=== PATIENT | female | born 1940 | race Caucasian/White ===

== ENCOUNTER 2017-07-13 10:30 | Day surgery (SDC) | payer MEDICARE, BC ==
[2017-07-06 23:07] VITALS: BMI 24.0
[2017-07-13 09:29] LABS: Calcium 9.6 mg/dL (8.4-10.2); Potassium 5.2 mmol/L (3.5-5.1)
[~2017-07-13 10:30] MED LIST: ASPIRIN 325 MG TAB PO ONE; CLOPIDOGREL 75 MG TAB PO ONE; NITROGLYCERIN SL TABS 0.4 MG TAB SUBLINGUAL PRN; SODIUM CHLORIDE 0.9% 1,000 ML IV SCH; SODIUM CHLORIDE 0.9% 1,000 ML in EMPTY BAG 1 BAG IV ONE
[2017-07-13] MEDS ORDERED: LIDOCAINE 2% INJ 20 MG/ML SQ ONE (12:12)
[2017-07-13] MEDS ORDERED: HEPARIN SODIUM 1,000 UN/ML (10ML VL) IV ONE ×2 (12:26→12:46)
[2017-07-13] MEDS ORDERED: IODIXANOL 320 MG/ML 100 ML INTRAARTER ONE (13:03)
[2017-07-13] MEDS ORDERED: hydrALAZINE HCL 20 MG/ML 1 ML VIAL IV ONE (13:10)
[2017-07-13] MEDS ORDERED: SODIUM CHLORIDE 0.9% 1,000 ML IV SCH (13:30)
[2017-07-13] MEDS ORDERED: ENALAPRILAT 1.25 MG/ML 1 ML VIAL IVP STA (13:42)
[2017-07-13] MEDS ORDERED: hydrALAZINE HCL 20 MG/ML 1 ML VIAL IVP STA (13:42)
[2017-07-13] MEDS ORDERED: SODIUM CHLORIDE 0.9% 250 ML IV ONE (13:50)
[2017-07-13] MEDS ORDERED: HYDROmorphone 2 MG/ML 1 ML SYRINGE IVP STA (14:11)
--- NOTE | 2017-07-13 14:27 | AN ---
ANGIOGRAPHY REPORT DATE OF SERVICE: July 13, 2017 PERFORMING PHYSICIAN: Cruz Mena MD, sample examiner. PROCEDURE PERFORMED: 1. Aortic arch angiogram. 2. Selective right internal carotid artery angiogram. 3. Non selective left internal carotid artery angiogram. 4. Intracranial angiogram. INDICATION: This is a pleasant 77-year-old female patient who sees Dr. Cuenca as an outpatient who was diagnosed recently with severe disease involving the right internal carotid artery. She underwent a CTA of the carotid, which revealed severe disease involving the right internal carotid artery and in view of that, she was brought today to undergo right carotid stenting. APPROACH: Right common femoral artery. COMPLICATION: None. LEVEL OF SEDATION: No sedation was given during the case. PROCEDURE DESCRIPTION: After obtaining informed consent, the patient was brought to the cardiac laboratory equipment cleaner. The right common femoral artery was cannulated using micropuncture technique and a micropuncture wire passed easily then I placed a 6-Wolof 90 cm sheath in the right common femoral artery and the sheath was pushed all the way to the aortic arch. Subsequently I did an aortic arch angiogram using 5-Wolof pigtail catheter. Then I did select the right common carotid artery using JB2 catheter. After that, I did selective right internal carotid artery angiogram and non selective left internal carotid artery angiogram and also intracranial angiogram. The procedure was completed without any complication. SELECTIVE ARCH AND CAROTID ANGIOGRAM: 1. Aortic arch is a true bovine arch and seems to be angiographically normal. It bifurcates into the innominate and left subclavian. 2. The right carotid system: The right common carotid artery appeared to be angiographically normal. It bifurcates into the right external and right internal carotid artery. The right external carotid artery appeared to have mild disease only and the right internal carotid artery appeared to have a plaque in the range of 70% only. 3. Left carotid system: The left internal carotid artery appeared to have mild disease only. The left common carotid artery appeared to be angiographically normal. The left external carotid artery appeared to be angiographically normal. CONCLUSION: 1. True bovine arch. 2. 70% disease involving the ostial of the right internal carotid artery, which does have a tortuous proximal portion in the neck. POSTPROCEDURE MANAGEMENT: 1. At this point maximize medical treatment. 2. Surveillance duplex study every 3-6 months. 3. Follow up with the patient. MMODL / IJN: [id number] /
--- NOTE | 2017-07-13 15:01 | IR ---
Fluoroscopy HISTORY: Carotid stenosis 9.2 minutes fluoroscopy time supplied to the referring clinician. 149 intraoperative C-arm images do cument the procedure. See dictated report from cardiology.
[2017-07-13 19:27] VITALS: RESP 18
[2017-07-14 03:41] VITALS: TEMP 98
[2017-07-14 08:54] VITALS: BP 89/50; PULSE 74
--- NOTE | 2017-07-14 09:31 | DS ---
DISCHARGE SUMMARY ADMISSION DATE: 07/13/2017 DISCHARGE DATE: 07/14/2017 BRIEF HISTORY: This is a pleasant 77-year-old female patient who sees Dr. Cuenca as an outpatient who was admitted yesterday to undergo right carotid stenting. She underwent selective right carotid angiogram, which revealed intermediate to severe disease involving the right internal , but not quite higher than 80% stenosis. In view of that, we decided to not pursue with right carotid stenting and the procedure was aborted at that time. The patient is going to be discharged home and I will follow up with the patient as an outpatient in the office. MMODL / IJN: [id number] /
== END 2017-07-14 13:10 | disposition home or self-care (01) ==
LOC: EDSTATUS 10:30 → CATHCVL 10:30 → EDSTATUS 10:30 → 3OBS 13:09 → CATHCVL 07-14 13:10
PROVIDERS: ATTEND Internal Medicine Interventional Cardiology
DX: I65.21 Occlusion and stenosis of right carotid artery (principal); I77.9 Disorder of arteries and arterioles, unspecified; I65.29 Occlusion and stenosis of unspecified carotid artery; I25.10 Atherosclerotic heart disease of native coronary artery without angina pectoris; Z95.1 Presence of aortocoronary bypass graft; Z95.5 Presence of coronary angioplasty implant and graft; I10 Essential (primary) hypertension; E78.5 Hyperlipidemia, unspecified; I27.20 Pulmonary hypertension, unspecified; I48.91 Unspecified atrial fibrillation; M35.3 Polymyalgia rheumatica; Z79.01 Long term (current) use of anticoagulants; Z79.899 Other long term (current) drug therapy
CPT/HCPCS: 36223; 80048; C1769 ×5; C1894 ×2; C1760; J2001; J1170; J0360; Q9967; J1644

== ENCOUNTER 2018-02-20 16:04 | Inpatient (IN) | payer BC, MEDICARE ==
[2018-02-20] MEDS ORDERED: NITROGLYCERIN OINT 1 INCH/GM PACKET TOPICAL STA (16:33)
[2018-02-20] MEDS ORDERED: ASPIRIN 81 MG PO STA (16:33)
--- NOTE | 2018-02-20 16:51 | ED ---
General Adult HPI - General Chief complaint: Chest Pain Stated complaint: Chest pain Time Seen by Provider: 02/20/18 16:25 Source: patient, RN notes reviewed Mode of arrival: ambulatory Limitations: no limitations - History of Present Illness Initial comments: Patient is a pleasant 77-year-old female presenting to the emergency Department with chest discomfort. Symptoms have been occurring for several weeks. Patient has some pressure in her chest. There is some associated dyspnea. No nausea or diaphoresis. Patient did have a stress test done with questionable results. Patient went to paving inspector today and EKG did show some ST depression. Dr. Cuenca did call and spoke with. He does recommend admitting patient and starting a heparin and beta blockers and stantin. - Related Data Home Medications Medication Instructions Recorded Confirmed Apixaban [Eliquis] 5 mg PO BID 01/26/14 02/20/18 ALPRAZolam [Xanax] 0.25 mg PO HS PRN 03/25/14 02/20/18 Irbesartan [Avapro] 75 mg PO DAILY 06/21/14 02/20/18 Carvedilol [Coreg] 6.25 mg PO BID-W/MEALS PRN 06/19/15 02/20/18 Isosorbide Mononitrate [Isosorbide 30 mg PO DAILY 06/19/15 02/20/18 Mononitrate ER] Famotidine [Pepcid] 20 mg PO DAILY 07/05/17 02/20/18 Spironolactone [Aldactone] 12.5 mg PO DAILY 07/05/17 02/20/18 Vit C/E/Zn/Coppr/Lutein/Zeaxan 2 each PO DAILY 07/05/17 02/20/18 [Preservision Areds 2 Softgel] Aspirin [Adult Low Dose Aspirin EC] 81 mg PO DAILY 02/20/18 02/20/18 Atorvastatin Calcium [Lipitor] 80 mg PO HS 02/20/18 02/20/18 Previous Rx's Medication Instructions Recorded Amiodarone [Cordarone] 100 mg PO DAILY #30 tab 06/21/15 Allergies Allergy/AdvReac Type Severity Reaction Status Date / Time No Known Allergies Allergy Verified 02/20/18 16:56 Review of Systems ROS Statement: Those systems with pertinent positive or pertinent negative responses have been documented in the HPI. ROS Other: All systems not noted in ROS Statement are negative. Constitutional: Denies: fever Eyes: Denies: eye pain ENT: Denies: ear pain Respiratory: Denies: cough Cardiovascular: Reports: chest pain Endocrine: Denies: heat or cold intolerance Gastrointestinal: Denies: abdominal pain Genitourinary: Denies: dysuria Musculoskeletal: Denies: back pain Skin: Denies: rash Neurological: Denies: weakness Past Medical History Past Medical History: Atrial Fibrillation, Cancer, CVA/TIA, Deep Vein Thrombosis (DVT), Eye Disorder, GERD/Reflux, Hypertension, Renal Disease Additional Past Medical History / Comment(s): carotid stenosis,DVT in Right leg after CABG , see Dr Cuenca H&P, "Stroke in left eye- blurry vision", RENAL INSUFFIENCY , SKIN CANCER-BASAL CELL.BURSITIS, POLYMYAGIA, SCIATICA,HIATAL HERNIA History of Any Multi-Drug Resistant Organisms: None Reported Past Surgical History: Cholecystectomy, Coronary Bypass/CABG, Heart Catheterization With Stent, Hysterectomy Additional Past Surgical History / Comment(s): cataracts, TRIPLE VESSEL CABG,2 CARDIAC STENTS. Past Anesthesia/Blood Transfusion Reactions: No Reported Reaction Additional Past Anesthesia/Blood Transfusion Reaction / Comment(s): CLAUSTROPHOBIA Date of Last Stent Placement:: 2011 Past Psychological History: No Psychological Hx Reported Smoking Status: Never smoker Past Alcohol Use History: None Reported Past Drug Use History: None Reported - Past Family History Mother Family Medical History: Myocardial Infarction ([place]) Additional Family Medical History / Comment(s): heart PROBLEMS Father Additional Family Medical History / Comment(s): HEART PROBLEMS General Exam Limitations: no limitations General appearance: alert, in no apparent distress Head exam: Present: atraumatic Eye exam: Present: normal appearance Neck exam: Present: normal inspection Respiratory exam: Present: normal lung sounds bilaterally. Absent: chest wall tenderness Cardiovascular Exam: Present: regular rate, normal rhythm, systolic murmur Expanded Peripheral pulses: 2+: Radial (R), Radial (L), Posterior Tibialis (R), Posterior Tibialis (L) GI/Abdominal exam: Present: soft. Absent: distended, tenderness Extremities exam: Present: normal inspection. Absent: pedal edema, calf tenderness Neurological exam: Present: alert Psychiatric exam: Present: normal affect, normal mood Skin exam: Present: normal color Course Vital Signs 02/20/18 02/20/18 16:07 16:53 Temperature 98.6 F Pulse Rate 70 Respiratory 16 18 Rate Blood Pressure 161/60 O2 Sat by Pulse 99 Oximetry EKG Findings - EKG Comments: EKG Findings:: Sinus rhythm at 65. For screening AV block UT of 218. QRS 102. QT 486. QTc 505. Normal axis. LVH criteria. No acute ST change. Medical Decision Making - Medical Decision Making Patient reevaluated and resting comfortably in bed. Patient and family updated on results and plan. Case was again discussed with Dr. Cuenca who did evaluate this patient and would like her to be admitted. Case was also discussed with Dr. Yusuf, who will admit for hospital call. - Lab Data Result diagrams: 02/20/18 16:42 02/20/18 16:42 Lab Results 02/20/18 02/20/18 02/20/18 Range/Units 16:42 16:42 16:42 WBC 5.9 (3.8-10.6) k/uL RBC 4.29 (3.80-5.40) m/uL Hgb 12.4 (11.4-16.0) gm/dL Hct 39.7 (34.0-46.0) % MCV 92.6 (80.0-100.0) fL MCH 28.9 (25.0-35.0) pg MCHC 31.2 (31.0-37.0) g/dL RDW 13.6 (11.5-15.5) % Plt Count 222 (150-450) k/uL Neutrophils % 74 % Lymphocytes % 17 % Monocytes % 6 % Eosinophils % 2 % Basophils % 0 % Neutrophils # 4.4 (1.3-7.7) k/uL Lymphocytes # 1.0 (1.0-4.8) k/uL Monocytes # 0.3 (0-1.0) k/uL Eosinophils # 0.1 (0-0.7) k/uL Basophils # 0.0 (0-0.2) k/uL PT (9.0-12.0) sec INR (<1.2) APTT (22.0-30.0) sec Sodium 141 (137-145) mmol/L Potassium 4.6 (3.5-5.1) mmol/L Chloride 109 H (98-107) mmol/L Carbon Dioxide 22 (22-30) mmol/L Anion Gap 10 mmol/L BUN 24 H (7-17) mg/dL Creatinine 0.90 (0.52-1.04) mg/dL Est GFR (CKD-EPI)AfAm 71 (>60 ml/min/1.73 sqM) Est GFR (CKD-EPI)NonAf 61 (>60 ml/min/1.73 sqM) Glucose 104 H (74-99) mg/dL Calcium 9.2 (8.4-10.2) mg/dL Magnesium 2.1 (1.6-2.3) mg/dL Total Bilirubin 0.7 (0.2-1.3) mg/dL AST 33 (14-36) U/L ALT 50 (9-52) U/L Alkaline Phosphatase 204 H (38-126) U/L Total Creatine Kinase 65 (30-135) U/L CK-MB (CK-2) 0.9 (0.0-2.4) ng/mL CK-MB (CK-2) Rel Index 1.4 Troponin I <0.012 (0.000-0.034) ng/mL Total Protein 7.4 (6.3-8.2) g/dL Albumin 4.2 (3.5-5.0) g/dL 02/20/18 Range/Units 16:42 WBC (3.8-10.6) k/uL RBC (3.80-5.40) m/uL Hgb (11.4-16.0) gm/dL Hct (34.0-46.0) % MCV (80.0-100.0) fL MCH (25.0-35.0) pg MCHC (31.0-37.0) g/dL RDW (11.5-15.5) % Plt Count (150-450) k/uL Neutrophils % % Lymphocytes % % Monocytes % % Eosinophils % % Basophils % % Neutrophils # (1.3-7.7) k/uL Lymphocytes # (1.0-4.8) k/uL Monocytes # (0-1.0) k/uL Eosinophils # (0-0.7) k/uL Basophils # (0-0.2) k/uL PT 11.1 (9.0-12.0) sec INR 1.2 H (<1.2) APTT 27.6 (22.0-30.0) sec Sodium (137-145) mmol/L Potassium (3.5-5.1) mmol/L Chloride (98-107) mmol/L Carbon Dioxide (22-30) mmol/L Anion Gap mmol/L BUN (7-17) mg/dL Creatinine (0.52-1.04) mg/dL Est GFR (CKD-EPI)AfAm (>60 ml/min/1.73 sqM) Est GFR (CKD-EPI)NonAf (>60 ml/min/1.73 sqM) Glucose (74-99) mg/dL Calcium (8.4-10.2) mg/dL Magnesium (1.6-2.3) mg/dL Total Bilirubin (0.2-1.3) mg/dL AST (14-36) U/L ALT (9-52) U/L Alkaline Phosphatase (38-126) U/L Total Creatine Kinase (30-135) U/L CK-MB (CK-2) (0.0-2.4) ng/mL CK-MB (CK-2) Rel Index Troponin I (0.000-0.034) ng/mL Total Protein (6.3-8.2) g/dL Albumin (3.5-5.0) g/dL - Radiology Data Radiology results: image reviewed (Chest x-ray shows chronic changes without acute abnormality) Disposition Clinical Impression: Acute coronary syndrome Disposition: ADMITTED IP TO [facility] Is patient prescribed a controlled substance at d/c from ED?: No Referrals: Raleigh Cuenca MD [Primary Care Provider] - 1-2 days Decision Time: 18:41
[2018-02-20 16:55] LABS: Basophils % (A) 0 %; Eosinophils # (A) 0.1 k/uL (0-0.7); Eosinophils % (A) 2 %; HCT 39.7 % (34.0-46.0); HGB 12.4 gm/dL (11.4-16.0); Lymphocytes % (A) 17 %; MCH 28.9 pg (25.0-35.0); MCHC 31.2 g/dL (31.0-37.0); MCV 92.6 fL (80.0-100.0); Mean Platelet Volume 6.9; Monocytes # (A) 0.3 k/uL (0-1.0); Monocytes % (A) 6 %; Neutrophils # (A) 4.4 k/uL (1.3-7.7); Neutrophils % (A) 74 %; Platelet Count 222 k/uL (150-450); RBC 4.29 m/uL (3.80-5.40); RDW 13.6 % (11.5-15.5); WBC 5.9 k/uL (3.8-10.6)
[2018-02-20] MEDS ORDERED: ALPRAZolam 0.25 MG TAB PO STA (16:56)
[2018-02-20 17:02] LABS: Albumin 4.2 g/dL (3.5-5.0); Calcium 9.2 mg/dL (8.4-10.2); Magnesium 2.1 mg/dL (1.6-2.3); Potassium 4.6 mmol/L (3.5-5.1); Total Bilirubin 0.7 mg/dL (0.2-1.3); Total Protein 7.4 g/dL (6.3-8.2)
[2018-02-20 17:05] LABS: INR 1.2 (<1.2); Partial Thromboplastin Time 27.6 sec (22.0-30.0); Prothrombin Time 11.1 sec (9.0-12.0)
[2018-02-20] MEDS ORDERED: ALPRAZolam 0.25 MG TAB PO PRN (17:11)
[2018-02-20] MEDS ORDERED: CARVEDILOL 6.25 MG TAB PO PRN (17:11)
[2018-02-20 17:13] LABS: Creatine Kinase 65 U/L (30-135)
[2018-02-20 17:26] LABS: Creatine Kinase MB 0.9 ng/mL (0.0-2.4); Troponin I <0.012 ng/mL (0.000-0.034)
--- NOTE | 2018-02-20 17:35 | XR ---
EXAMINATION TYPE: XR chest 2V DATE OF EXAM: 02/20/2018 COMPARISON: 06/19/2015 HISTORY: Chest pain TECHNIQUE: Frontal and lateral views of the chest are obtained. FINDINGS: There is some thoracic scoliotic deformity. There is thoracolumbar levoscoliosis. There is coarsening of interstitial markings. There is no gross heart failure. Thoracic aorta is atheromatous . There are sternal wires. There are chest leads. There is no definite pleural effusion. IMPRESSION: No heart failure seen. Fibrotic changes. No significant change compared to old exam.
[2018-02-20] MEDS ORDERED: NITROGLYCERIN SL TABS 0.4 MG TAB SUBLINGUAL PRN (18:41)
[2018-02-20] MEDS ORDERED: HEPARIN SODIUM,PORCINE 5,000 UNIT/ML 1 ML VIAL IV PRN (18:41)
[2018-02-20] MEDS ORDERED: HEPARIN SODIUM,PORCINE 5,000 UNIT/ML 1 ML VIAL IV ONE (18:41)
[2018-02-20] MEDS ORDERED: HEPARIN SOD,PORK IN 0.45% NACL 25,000 UNIT in 0.45% NACL 1 500ML.BAG IV SCH (18:45)
[2018-02-20] MEDS: ATORVASTATIN 80 MG TAB PO SCH (21:27)
[2018-02-20 23:01] LABS: Creatine Kinase 51 U/L (30-135)
[2018-02-20 23:16] LABS: Creatine Kinase MB 0.9 ng/mL (0.0-2.4); Troponin I <0.012 ng/mL (0.000-0.034)
[2018-02-20] MEDS ORDERED: TEMAZEPAM 15 MG CAP PO PRN (23:31)
[2018-02-20] MEDS ORDERED: ACETAMINOPHEN TAB 500 MG TAB PO PRN (23:31)
[2018-02-20] MEDS ORDERED: HYDROcodone/APAP 5-325MG 1 EACH TAB PO PRN (23:31)
[2018-02-21] MEDS: NITROGLYCERIN OINT 1 INCH/GM PACKET TOPICAL SCH ×2 (00:11→05:56)
[2018-02-21 03:55] LABS: Basophils % (A) 0 %; Eosinophils # (A) 0.1 k/uL (0-0.7); Eosinophils % (A) 1 %; HCT 35.5 % (34.0-46.0); HGB 11.1 gm/dL (11.4-16.0); Lymphocytes # (A) 1.3 k/uL (1.0-4.8); Lymphocytes % (A) 25 %; MCHC 31.1 g/dL (31.0-37.0); MCV 93.2 fL (80.0-100.0); Mean Platelet Volume 6.9; Monocytes # (A) 0.4 k/uL (0-1.0); Monocytes % (A) 7 %; Neutrophils # (A) 3.4 k/uL (1.3-7.7); Neutrophils % (A) 65 %; Platelet Count 180 k/uL (150-450); RBC 3.81 m/uL (3.80-5.40); RDW 13.4 % (11.5-15.5); WBC 5.2 k/uL (3.8-10.6)
[2018-02-21 04:20] LABS: Creatine Kinase 47 U/L (30-135)
[2018-02-21 04:33] LABS: Troponin I <0.012 ng/mL (0.000-0.034)
[2018-02-21 04:39] LABS: Calcium 8.7 mg/dL (8.4-10.2); Potassium 3.8 mmol/L (3.5-5.1)
--- NOTE | 2018-02-21 07:57 | HP ---
HISTORY AND PHYSICAL CHIEF COMPLAINT: Chest pain. HISTORY OF PRESENT ILLNESS: This 77-year-old woman with a past medical history of multiple medical problems including atrial fibrillation, history of CVA, DVT, GERD, hypertension, history of hyperlipidemia, carotid stenosis being followed by Dr. Farias in the outpatient setting was evaluated by Dr. Cuenca today. The patient apparently had some pressure in the chest and some associated shortness of breath. No nausea or diaphoresis. The patient also recently had a stress test about a few weeks ago with questionable Today, the EKG shows some ST-T changes. The patient was admitted to [facility] at this time. There is no history of any fever, rigors. No history of headache, loss of consciousness, seizures. PAST MEDICAL HISTORY: History of CAD, CABG, stent, history of atrial fibrillation, CVA, TIA, DVT, GERD , hypertension, hyperlipidemia, history of carotid stenosis. MEDICATIONS: Medications prior to admission are home medications: 1. Vitamin C, zinc, copper 2 daily. 2. Aldactone 12.5 mg daily. 3. Imdur 30 mg p.o. daily. 4. Avapro 75 mg p.o. daily. 5. Pepcid 20 mg p.o. daily. 6. Coreg 6.25 mg p.o. b.i.d. with meals. 7. Lipitor 80 mg at bedtime. 8. Aspirin 81 mg daily. 9. Eliquis 5 mg p.o. b.i.d. 10.Cordarone 100 mg p.o. daily. 11.Xanax 0.25 at bedtime p.r.n. ALLERGIES: Allergies are none. FAMILY HISTORY: History of myocardial infarction in the family. SOCIAL HISTORY: No history of smoking. No history of alcohol intake. REVIEW OF SYSTEMS: ENT: No diminished hearing or diminished. CARDIOVASCULAR SYSTEM: No angina, RESPIRATORY SYSTEM: No cough GI: No nausea. : No dysuria. NERVOUS SYSTEM: No numbness or weakness. ALLERGY/IMMUNOLOGY: No asthma. MUSCULOSKELETAL: As mentioned earlier. HEMATOLOGY/ONCOLOGY: As mentioned earlier. ENDOCRINE: No history of diabetes or hypothyroidism. CONSTITUTIONAL: As mentioned earlier. DERMATOLOGY: Negative. RHEUMATOLOGY: Negative. PSYCHIATRY: As mentioned earlier. PHYSICAL EXAMINATION: Patient is alert and oriented x3. The pulse is 66, blood pressure 167/81, respiration 18, temperature 98.3, pulse ox 99% on 2 L HEENT: Conjunctivae normal. Oral mucosa moist. Neck is no jugular venous distention. No carotid bruit. No lymph node enlargement. CARDIOVASCULAR: S1 and S2 muffled. RESPIRATORY: Breath sounds are diminished at the bases. Bilateral scattered rhonchi and crackles. ABDOMEN: Soft, nontender. No mass palpable. LEGS: No edema, no swelling. NERVOUS SYSTEM: Higher functions as mentioned. Moves all 4 limbs. No focal motor deficits. LYMPHATICS: No lymphadenopathy of the neck, axillae or groin. SKIN: No ulcer, rash or bleeding. LABS: CBC within normal. EKG noted. Glucose 104. Troponins are negative. ASSESSMENT: 1. Chest pain possible unstable angina. 2. Recent abnormal stress test. 3. History of coronary artery disease, coronary artery bypass grafting, stent. 4. Atrial fibrillation. 5. Cerebrovascular accident, transient ischemic attack. 6. History of deep vein thrombosis. 7. History of gastroesophageal reflux disease. 8. Hypertension. 9. History of carotid stenosis. 10.History of renal insufficiency. 11.History of claustrophobia. RECOMMENDATIONS AND DISCUSSION: In this 77-year-old woman who presented with multiple medical issues at this time I would recommend to continue current medications, continue symptomatic treatment. Otherwise, unstable angina protocol and cardiology consultation possible cardiac cath. Guarded prognosis because of multiple complex medical issues. Further recommendations to follow. Prognosis guarded. MMODL / IJN: [id number] / MTDD
[2018-02-21] MEDS ORDERED: ASPIRIN 325 MG TAB PO SCH (09:00)
[2018-02-21] MEDS ORDERED: FAMOTIDINE 20 MG TAB PO SCH (09:00)
[2018-02-21] MEDS ORDERED: IV FLUID CONTINUATION 1,000 ML IV ONE (09:24)
[2018-02-21] MEDS ORDERED: MIDAZOLAM 2 MG/2 ML VIAL ONE (09:35)
[2018-02-21] MEDS ORDERED: LIDOCAINE 1% INJ 10MG/ML (20 ML MDV) ONE (09:35)
[2018-02-21] MEDS ORDERED: SODIUM CHLORIDE 0.9% 1,000 ML in EMPTY BAG 1 BAG IV ONE (09:41)
[2018-02-21] MEDS ORDERED: ASPIRIN 325 MG TAB PO STA (09:41)
[2018-02-21] MEDS ORDERED: NITROGLYCERIN SL TABS 0.4 MG TAB SUBLINGUAL PRN ×2 (09:41→11:37)
[2018-02-21] MEDS ORDERED: ATORVASTATIN 80 MG TAB PO STA (09:41)
[2018-02-21] MEDS ORDERED: ALPRAZolam 0.5 MG TAB PO PRN (09:41)
[2018-02-21] MEDS ORDERED: fentaNYL (PF) 50 MCG/ML 2 ML AMP IV ONE (10:00)
[2018-02-21] MEDS ORDERED: ASPIRIN 325 MG TAB PO ONE (10:00)
[2018-02-21] MEDS ORDERED: MIDAZOLAM 2 MG/2 ML VIAL IV ONE (10:00)
[2018-02-21] MEDS ORDERED: fentaNYL (PF) 50 MCG/ML 2 ML AMP ONE (10:01)
[2018-02-21] MEDS ORDERED: LIDOCAINE 1% INJ 10MG/ML (20 ML MDV) SQ ONE ×2 (10:01→10:03)
[2018-02-21] MEDS ORDERED: ASPIRIN 325 MG TAB ONE ×2 (10:05→10:07)
[2018-02-21] MEDS ORDERED: hydrALAZINE HCL 20 MG/ML 1 ML VIAL ONE (10:07)
[2018-02-21] MEDS ORDERED: hydrALAZINE HCL 20 MG/ML 1 ML VIAL IV ONE (10:09)
[2018-02-21] MEDS ORDERED: NITROGLYCERIN OINT 1 INCH/GM PACKET TOPICAL ONE ×2 (10:11→10:12)
[2018-02-21] MEDS ORDERED: CLOPIDOGREL 75 MG TAB ONE (10:42)
[2018-02-21] MEDS ORDERED: CLOPIDOGREL 75 MG TAB PO ONE (10:46)
[2018-02-21] MEDS ORDERED: IOPAMIDOL-370 125ML BTL INJ ONE (10:50)
[2018-02-21] MEDS ORDERED: BIVALIRUDIN BOLUS 250 MG/50 ML IV ONE (10:51)
[2018-02-21] MEDS ORDERED: BIVALIRUDIN 250 MG in SODIUM CHLORIDE 0.9% 50 ML IV ONE (10:52)
[2018-02-21] MEDS ORDERED: NITROGLYCERIN 1000MCG/10ML SYRINGE INTRACORON ONE (11:01)
--- NOTE | 2018-02-21 11:03 | P.CARDCATH ---
Date of Procedure: 02/21/18 Preoperative Diagnosis: Unstable angina Postoperative Diagnosis: Significant disease involving the mid RCA, patent grafts 4 Procedure(s) Performed: Left heart catheterization with selective coronary arteriography, including selective injection of the GODNIEZ alayna, 2 vein grafts and one radial graft and no LV gram Description of Procedure: HISTORY: This is a 77-year-old female with history of previous bypass surgery and also stent placement who had a recent stress test which showed possible ischemia in the lateral wall. Patient presented to the office complaints of chest pain and EKG evidence of ST depression in inferolateral leads. Patient is admitted by Dr. Cuenca for unstable angina. Her cardiac enzymes are negative. Given her history, patient is advised to have a cardiac catheterization. CONSENT :I have discussed the risks, benefits and alternative therapies for the above-mentioned procedure and for both sedation/analgesia as well as necessary blood product administration, if indicated, as they pertain to this patient. The patient has indicated understanding and acceptance of the risks and procedures discussed. PROCEDURE: Patient was brought to the lab in a fasting state. Patient was given some IV sedation. The right groin is infiltrated with lidocaine and right femoral artery was entered using Seldinger technique. A 6-Estonian catheter was left in place and selective coronary arteriography and selective injection of 2 vein grafts, radial graft and also GODINEZ graft was performed.. No LV gram done . Patient tolerated the procedure well. Femoral angiogram was performed . No immediate complications were noted and patient went on to have stent placement of the RCA by Dr. Stoll Conscious Sedation: Versed 1mg Fentanyl 12.5 g Duration 32minutes HEMODYNAMThe aortic pressure is about 170/80. Left ankle end-diastolic pressure is about 8-10. SECTIVE CORONARY ARTERIOGRAPHY: THE LEFT MAIN: Short and patent THE LEFT ANTERIOR DESCENDING CORONARY ARTERY: This is totally occluded in the midportion Area. The distal LAD seen by GODINEZ graft . The left circumflex coronary artery: This is totally occluded in the proximal portion. The right coronary artery: This is heavily calcified vessel. There is about 70% stenosis of the origin of the marginal branch. There is total occlusion of the PDA. . The GODINEZ graft to the LAD: This is patent throat its length and also to distal anastomosis. The LAD beyond the insertion site is free of occlusive disease. The vein graft to the intermediate: This is patent at the proximal and distal anastomosis. The distal branch are free of occlusive disease. The vein graft to the OM branch of the circumflex: This is patent both at the proximal and distal anastomosis and throughout its length. The OM branch beyond the insertion is free of occlusive disease . He had The free radial graft to the PDA. This is small and patent throat its length and at both proximal and distal anastomosis. The PDA is small in caliber and free of occlusive disease. Left ventriculography: Not performed Final impression: #1. Critical lesion in the mid RCA #2. Patent 4 bypass grafts #3. Total occlusion of the LAD and circumflex in the proximal portion Plan: Proceed with stent placement of the RCA. This is being done by Dr. Stoll Prognosis: Fair
[2018-02-21] MEDS ORDERED: IOPAMIDOL-370 100ML BTL INJ ONE (11:21)
[2018-02-21] MEDS ORDERED: RX INFO: IV CONTRAST WAS GIVEN 1 EACH MISC MISCELLANE PRN (11:37)
[2018-02-21] MEDS ORDERED: ATROPINE SULFATE 0.1 MG/ML 10ML SYRINGE IV PRN (11:37)
[2018-02-21] MEDS ORDERED: MAG HYDROX/AL HYDROX/SIMETH 30 ML CUP PO PRN (11:37)
[2018-02-21] MEDS ORDERED: SODIUM CHLORIDE 0.9% 1,000 ML IV SCH (11:45)
--- NOTE | 2018-02-21 11:59 | PTCA ---
PERCUTANEOUSTRANS CORORONARY ANGIOGRAPHY DATE OF SERVICE: 02/21/2018. HISTORY: Ms. Sen is a 77-year-old female, known history of coronary artery disease, status post bypass grafting, history of percutaneous revascularization, who has been followed by Dr. Cuenca. Underwent cardiac catheterization by Dr. Guillen because of symptoms of angina pectoris, abnormal myocardial perfusion imaging, and EKG changes. Was found to have significant stenosis involving the mid right coronary artery at the site of the prior stenting. The right PDA was chronically occluded and fed by the graft, but the PLV was patent. In view of that, recommendation was made regarding angioplasty and stenting. The procedure, as well as the risks and complications, were discussed with the patient who is in full understanding and agreement. PROCEDURE: Attempt at guidewire in the right coronary artery using a 6-Beninese KRH 4 were unsuccessful. That catheter was exchanged to an and NR4 guiding catheter. After cannulating the right coronary ostium, a 0.014 advanced medium weight J-wire rate was advanced across the lesion, positioned distally. Then a 2.5 x 12 mm NC Trek balloon was advanced and one inflation at 12 atmospheres was done. Following that, the balloon was removed and attempt to advance a 2.75 x 18 mm Xience Alpine stent was unsuccessful. That stent was removed and another 0.014 balanced medium weight J-wire was advanced across the lesion, positioned distally in a caden fashion. Subsequently the stent was advanced, deployed, and post dilated at 16 atmospheres. Following that the balloon was removed and the 2nd wire was reintroduced. Subsequently, a 3.0 x 50 mm NC Trek balloon was advanced and one inflation at 14 atmospheres was done. After the last inflation, after appropriate wait, the balloon and the guidewire were withdrawn back in the guiding catheter. Images were obtained and repeated. Those images revealed stable successful stenting. At that point, the guiding catheter, the balloon, and the guidewire were removed. The sheath was removed. Hemostasis was obtained with deployment of an Angio-Seal. There was no immediate complication. The patient was returned to room in stable condition. The patient had chest discomfort and EKG changes with the inflation that resolved at the end of the procedure. She received Angiomax per protocol as well as oral loading dose of clopidogrel. RESULTS: Successful stenting of the mid right coronary artery with reduction of stenosis from 70% to less than 5%. RECOMMENDATIONS: Patient be continued on aspirin, Plavix and statin. Subsequently, the aspirin will be stopped and she will be continued on the Eliquis. Those findings and recommendation were discussed with the patient and her family who were in full understanding and agreement. DURATION OF PROCEDURE: 35 minutes. MMSLOANEL / FEMIN: [id number] /
[2018-02-21] MEDS: SPIRONOLACTONE 25 MG TAB PO SCH (12:12)
[2018-02-21] MEDS: ISOSORBIDE MONONITRATE ER 30 MG TAB.ER.24H PO SCH (12:13)
[2018-02-21] MEDS: AMIODARONE 100 MG TAB PO SCH (12:13)
[2018-02-21] MEDS: LOSARTAN 25 MG TAB PO SCH (12:13)
[2018-02-21] MEDS: PANTOPRAZOLE 40 MG TABLET PO SCH (12:15)
[2018-02-21] MEDS: ALPRAZolam 0.25 MG TAB PO PRN ×2 (12:17→19:33)
[2018-02-21 13:38] VITALS: BMI 24.2
--- NOTE | 2018-02-21 17:11 | PN ---
PROGRESS NOTE DATE OF SERVICE: 02/21/2018 This 77-year-old woman who was admitted with chest pain, abnormal stress test, had a cardiac catheterization and RCA stenting. No chest pain. No palpitations. No fever. PHYSICAL EXAMINATION: Alert and oriented x3. Pulse is 64, blood pressure 133/60, respirations 16, temperature 97.3, pulse ox 93% on room air. HEENT: Conjunctivae normal. Oral mucosa moist. NECK: No jugular venous distention. No carotid bruit. No lymph node enlargement. CARDIOVASCULAR SYSTEM: S1, S2 muffled. RESPIRATORY SYSTEM: Breath sounds diminished at the bases. No rhonchi. No crackles. ABDOMEN: Soft, non-tender. LEGS: No edema. No swelling. NERVOUS SYSTEM: No focal deficit. LABS: WBC 5.2, hemoglobin 11.1, sodium 141, potassium 3.8. ASSESSMENT: 1. Chest pain, possible unstable angina, status post cardiac catheterization and right coronary artery stenting. 2. History of recent abnormal stress test. 3. History of coronary artery disease, coronary artery bypass grafting, stent. 4. Atrial fibrillation. 5. History of cerebrovascular accident, transient ischemic attack. 6. History of deep vein thrombosis. 7. Gastroesophageal reflux disease. 8. Hypertension. 9. History of carotid stenosis. 10.History of renal insufficiency. 11.History of claustrophobia. RECOMMENDATIONS AND DISCUSSION: I recommend to continue current medication, continue monitoring. Continue the antiplatelet agents. Continue the rest of the medications. Follow closely with Cardiology. Prognosis guarded. Further recommendations to follow. MMODL / IJN: [id number] /
[2018-02-21] MEDS: ATORVASTATIN 80 MG TAB PO SCH (19:34)
[2018-02-21] MEDS ORDERED: ZOLPIDEM 5 MG TAB PO PRN (21:00)
[2018-02-22 04:01] VITALS: RESP 16
[2018-02-22 06:17] LABS: Basophils % (A) 0 %; Eosinophils % (A) 0 %; HCT 33.4 % (34.0-46.0); HGB 10.6 gm/dL (11.4-16.0); Lymphocytes % (A) 14 %; MCH 29.2 pg (25.0-35.0); MCHC 31.8 g/dL (31.0-37.0); MCV 91.7 fL (80.0-100.0); Mean Platelet Volume 6.8; Monocytes # (A) 0.4 k/uL (0-1.0); Monocytes % (A) 6 %; Neutrophils # (A) 5.3 k/uL (1.3-7.7); Neutrophils % (A) 78 %; Platelet Count 187 k/uL (150-450); RBC 3.65 m/uL (3.80-5.40); RDW 13.5 % (11.5-15.5); WBC 6.8 k/uL (3.8-10.6)
[2018-02-22 06:37] LABS: Calcium 8.4 mg/dL (8.4-10.2); Potassium 3.8 mmol/L (3.5-5.1)
[2018-02-22] MEDS: PANTOPRAZOLE 40 MG TABLET PO SCH (06:37)
[2018-02-22] MEDS: ISOSORBIDE MONONITRATE ER 30 MG TAB.ER.24H PO SCH (08:02)
[2018-02-22] MEDS: AMIODARONE 100 MG TAB PO SCH (08:02)
[2018-02-22] MEDS: LOSARTAN 25 MG TAB PO SCH (08:02)
[2018-02-22] MEDS: SPIRONOLACTONE 25 MG TAB PO SCH (08:03)
[2018-02-22 08:12] VITALS: TEMP 98.6
[2018-02-22] MEDS ORDERED: CLOPIDOGREL 75 MG TAB PO SCH (09:00)
[2018-02-22] MEDS ORDERED: ASPIRIN 81 MG PO SCH (09:00)
[2018-02-22 12:40] VITALS: BP 130/61; PULSE 69
--- NOTE | 2018-02-22 15:51 | P.PN ---
Subjective Progress Note Date: 02/22/18 This is a pleasant 77-year-old female who follows regularly with Dr. Dozier in the office. She was admitted to the hospital by Dr. Cuenca to undergo cardiac catheterization, patient had been experiencing heaviness in her chest. She also had a Lexiscan Cardiolite stress test performed which revealed possible anterior lateral ischemia with some possible motion artifact. She has a known history of hypertension, hyperlipidemia, paroxysmal atrial fibrillation. She was taken to the cardiac catheterization lab where the patient underwent stenting of the RCA. She was seen and examined this morning, denies any chest pain or difficulty in breathing. Her EKG showed normal sinus rhythm with no changes from post-PCI. She denied any chest discomfort, and her breathing overall was stable. Hemodynamically stable. Objective - Vital Signs Vital signs: Vital Signs Temp 98.6 F 02/22/18 08:00 Pulse 69 02/22/18 12:00 Resp 16 02/22/18 12:00 BP 130/61 02/22/18 12:00 Pulse Ox 90 L 02/22/18 12:00 Intake & Output 02/21/18 02/22/18 02/22/18 18:59 06:59 18:59 Intake Total 321 240 Balance 321 240 Weight 66 kg 67.2 kg Intake: IV 171 Oral 150 240 Other: Voiding Method Toilet Toilet Toilet # Voids 1 1 2 # Bowel Movements 1 - Exam PHYSICAL EXAMINATION: GENERAL: A 89-year-old female in no acute distress at the time of my examination HEENT: Head is atraumatic, normocephalic. Pupils equal, round. Sclera anicteric. Conjunctiva are clear. Mucous membranes of the mouth are moist. Neck is supple. There is no elevated jugular venous pressure.] bruit is heard. HEART EXAMINATION: [Heart S1, S2 normal. No murmur or gallop heard.] CHEST EXAMINATION:[ Lungs are clear to auscultation and precussion. No chest wall tenderness is noted on palpation or with deep breathing.] ABDOMEN: [ Soft, nontender. Bowel sounds are heard. No organomegaly noted]. Right groin soft, no evidence of any hematoma. EXTREMITIES:[ 2+ peripheral pulses with no evidence of peripheral edema and no calf tenderness noted]. NEUROLOGIC [patient is awake, alert and oriented ?-3.] . - Labs CBC & Chem 7: 08/22/18 05:42 02/22/18 05:42 Labs: Abnormal Lab Results - Last 24 Hours (Table) 02/22/18 02/22/18 Range/Units 05:42 05:42 RBC 3.65 L (3.80-5.40) m/uL Hgb 10.6 L (11.4-16.0) gm/dL Hct 33.4 L (34.0-46.0) % Chloride 112 H (98-107) mmol/L Carbon Dioxide 20 L (22-30) mmol/L Glucose 102 H (74-99) mg/dL Assessment and Plan Plan: Assessment and plan #1 status post angioplasty and stenting of the right coronary artery #2 paroxysmal atrial fibrillation, on Eliquis for anticoagulation #3 hypertension #4 hyperlipidemia Plan Patient will be discharged home today, follow-up appointment will be made in the office with . Patient will be discharged home on aspirin 81 mg daily, Plavix 75 mg daily, amiodarone 100 mg daily, Lipitor 80 mg daily, Coreg 6.25 mg twice a day, Imdur 30 mg daily, Cozaar 25 mg daily, Aldactone 25 mg daily, Eliquis to be resumed at 5 mg twice a day as an outpatient. Patient is remaining in normal sinus rhythm. DNP note has been reviewed, I agree with a documented findings and plan of care. Patient was seen and examined.
--- NOTE | 2018-02-22 18:15 | DS ---
DISCHARGE SUMMARY DATE OF SERVICE: 02/22/2018 FINAL DIAGNOSES: 1. Chest pain; possible unstable angina, status post cardiac catheterization with right coronary artery stenting. 2. History of recent abnormal stress test. 3. History of coronary artery disease, coronary artery bypass grafting and stent. 4. Atrial fibrillation. 5. History of cerebrovascular accident, transient ischemic attack. 6. History of deep venous thrombosis. 7. Gastroesophageal reflux disease. 8. Hypertension. 9. History of carotid stenosis. 10.History of renal insufficiency. 11.History of claustrophobia. DISCHARGE DISPOSITION: The patient will be discharged in stable condition with guarded prognosis after clearance from Cardiology. HISTORY OF PRESENT ILLNESS: This 77-year-old woman with a past medical history of multiple medical problems was admitted with chest pain, unstable angina. Cardiology performed a cardiac catheterization and RCA stenting. Patient improved significantly. On exam, vitals are stable. CARDIOVASCULAR SYSTEM: S1, S2 muffled. ABDOMEN: Soft. NERVOUS SYSTEM: No focal deficit. DISCHARGE ADVICE AND MEDICATIONS: 1. Diet is cardiac. 2. Activity limited until followup. 3. Follow up with primary physician, Dr. Farias, in 2-3 days. 4. Follow up with Dr. Cuenca as advised. 5. Xanax 0.25 at bedtime. 6. Ecotrin 81 mg p.o. daily. 7. Lipitor 80 mg at bedtime. 8. Coreg 6.25 mg p.o. b.i.d. 9. Pepcid 20 mg p.o. daily. 10.Avapro 75 mg p.o. daily. 11.Imdur 30 mg p.o. daily. 12.Aldactone 12.5 mg p.o. daily. 13.Vitamin C/E/zinc 2 p.o. daily. 14.Cordarone 100 mg p.o. daily. 15.Plavix 75 mg p.o. daily. 16.Nitrostat 0.4 sublingually p.r.n. Once again, the patient will be discharged in stable condition with guarded prognosis. MMODL / IJN: [id number] /
== END 2018-02-22 15:14 | disposition home or self-care (01) | DRG 247 ==
LOC: EC 16:04 → 6SEL 18:41
PROVIDERS: ADMIT Hospitalist; ATTEND Hospitalist
PROC: B2111ZZ Fluoroscopy of Multiple Coronary Arteries using Low Osmolar Contrast (ICD-10-PCS; 2018-02-21)
PROC: B2131ZZ Fluoroscopy of Multiple Coronary Artery Bypass Grafts using Low Osmolar Contrast (ICD-10-PCS; 2018-02-21)
PROC: 027034Z Dilation of Coronary Artery, One Artery with Drug-eluting Intraluminal Device, Percutaneous Approach (ICD-10-PCS; principal; 2018-02-21 10:00)
PROC: 4A023N7 Measurement of Cardiac Sampling and Pressure, Left Heart, Percutaneous Approach (ICD-10-PCS; 2018-02-21 10:00)
DX: I25.110 Atherosclerotic heart disease of native coronary artery with unstable angina pectoris (principal); I25.82 Chronic total occlusion of coronary artery; I65.29 Occlusion and stenosis of unspecified carotid artery; I48.0 Paroxysmal atrial fibrillation; E78.5 Hyperlipidemia, unspecified; F40.240 Claustrophobia; I10 Essential (primary) hypertension; K21.9 Gastro-esophageal reflux disease without esophagitis; K44.9 Diaphragmatic hernia without obstruction or gangrene; M54.30 Sciatica, unspecified side; I44.0 Atrioventricular block, first degree; Z79.899 Other long term (current) drug therapy; Z79.01 Long term (current) use of anticoagulants; Z79.82 Long term (current) use of aspirin; Z86.718 Personal history of other venous thrombosis and embolism; Z86.73 Personal history of transient ischemic attack (TIA), and cerebral infarction without residual deficits; Z95.1 Presence of aortocoronary bypass graft; Z90.710 Acquired absence of both cervix and uterus; Z85.828 Personal history of other malignant neoplasm of skin; Z90.49 Acquired absence of other specified parts of digestive tract; Z95.5 Presence of coronary angioplasty implant and graft; Z98.42 Cataract extraction status, left eye; Z98.41 Cataract extraction status, right eye; Z96.1 Presence of intraocular lens; Z82.49 Family history of ischemic heart disease and other diseases of the circulatory system
CPT/HCPCS: 36415; 71046; 80048; 80053; 80061; 82550; 82553; 83735; 84484; 85025; 85610; 85730; 93005; 93459; 99285

== ENCOUNTER 2018-06-02 14:42 | Inpatient (IN) | payer MEDICARE, BC ==
[2018-06-02] MEDS ORDERED: NITROGLYCERIN OINT 1 INCH/GM PACKET TOPICAL STA (15:16)
[2018-06-02] MEDS ORDERED: ASPIRIN 81 MG PO STA (15:16)
[2018-06-02 15:35] LABS: Basophils % (A) 0 %; Eosinophils % (A) 1 %; HCT 40.5 % (34.0-46.0); HGB 12.6 gm/dL (11.4-16.0); Hypochromasia Slight; Lymphocytes # (A) 1.4 k/uL (1.0-4.8); Lymphocytes % (A) 21 %; MCH 27.5 pg (25.0-35.0); MCHC 31.1 g/dL (31.0-37.0); MCV 88.4 fL (80.0-100.0); Mean Platelet Volume 6.4; Monocytes # (A) 0.4 k/uL (0-1.0); Monocytes % (A) 6 %; Neutrophils # (A) 4.7 k/uL (1.3-7.7); Neutrophils % (A) 71 %; Platelet Count 247 k/uL (150-450); RBC 4.59 m/uL (3.80-5.40); RDW 15.1 % (11.5-15.5); WBC 6.6 k/uL (3.8-10.6)
[2018-06-02 15:43] LABS: Albumin 4.4 g/dL (3.5-5.0); Calcium 9.6 mg/dL (8.4-10.2); Magnesium 2.2 mg/dL (1.6-2.3); Potassium 4.7 mmol/L (3.5-5.1); Total Bilirubin 0.6 mg/dL (0.2-1.3); Total Protein 7.9 g/dL (6.3-8.2)
[2018-06-02 15:46] LABS: Creatine Kinase 40 U/L (30-135)
[2018-06-02 15:48] LABS: INR 1.1 (<1.2); Partial Thromboplastin Time 27.7 sec (22.0-30.0); Prothrombin Time 10.6 sec (9.0-12.0)
--- NOTE | 2018-06-02 15:48 | XR ---
EXAMINATION TYPE: XR chest 2V DATE OF EXAM: 06/02/2018 COMPARISON: February 2018 HISTORY: Shortness of breath TECHNIQUE: Frontal and lateral views of the chest are obtained. FINDINGS: Scattered senescent parenchymal changes noted. Hyperinflation compatible with COPD. No evidence for infiltrate. No evidence for atelectasis. Heart size is stable. Mediastinal structures are stable and grossly unremarkable. No evidence for hilar prominence. Degenerative changes dorsal spine. Scoliosis thoracic spine. IMPRESSION: 1. No evidence for acute pulmonary disease.
[2018-06-02 15:59] LABS: Creatine Kinase MB 0.7 ng/mL (0.0-2.4); Troponin I <0.012 ng/mL (0.000-0.034)
[2018-06-02] MEDS ORDERED: ALPRAZolam 0.25 MG TAB PO STA (16:04)
[2018-06-02] MEDS ORDERED: NITROGLYCERIN SL TABS 0.4 MG TAB SUBLINGUAL PRN ×2 (16:51→16:54)
--- NOTE | 2018-06-02 16:51 | ED ---
Chest Pain [facility] - General Chief Complaint: Chest Pain Stated Complaint: Chest pain Time Seen by Provider: 06/02/18 15:06 Source: patient Mode of arrival: ambulatory Limitations: no limitations - History of Present Illness Initial Comments: This 78-year-old female presents with a complaint of some chest pain. This is described as a burning sensation to her mid chest. It is nonradiating in nature. She denies any shortness of breath, nausea, or vomiting. She does relate a significant history of previous cardiac disease. She has had previous open heart surgery and stenting. She then, and February 2018, and additional cardiac stenting. 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 She states that over the last 2 days the pain has become worse. She denies any leg pain or swelling. There is no other complaints or modifying factors. - Related Data Home Medications Medication Instructions Recorded Confirmed ALPRAZolam [Xanax] 0.25 mg PO HS PRN 03/25/14 06/02/18 Irbesartan [Avapro] 75 mg PO DAILY 06/21/14 06/02/18 Isosorbide Mononitrate [Isosorbide 30 mg PO DAILY 06/19/15 06/02/18 Mononitrate ER] Spironolactone [Aldactone] 12.5 mg PO DAILY 07/05/17 06/02/18 Vit C/E/Zn/Coppr/Lutein/Zeaxan 2 each PO DAILY 07/05/17 06/02/18 [Preservision Areds 2 Softgel] Atorvastatin Calcium [Lipitor] 80 mg PO HS 02/20/18 06/02/18 Apixaban [Eliquis] 5 mg PO BID 06/02/18 06/02/18 Ranolazine [Ranexa] 1,000 mg PO DAILY 06/02/18 06/02/18 Previous Rx's Medication Instructions Recorded Amiodarone [Cordarone] 100 mg PO DAILY #30 tab 06/21/15 Clopidogrel [Plavix] 75 mg PO DAILY #30 tab 02/22/18 Nitroglycerin Sl Tabs [Nitrostat] 0.4 mg SUBLINGUAL Q5M PRN #25 tab 02/22/18 Allergies Allergy/AdvReac Type Severity Reaction Status Date / Time No Known Allergies Allergy Verified 06/02/18 14:49 Review of Systems ROS Statement: Those systems with pertinent positive or pertinent negative responses have been documented in the HPI. ROS Other: All systems not noted in ROS Statement are negative. Past Medical History Past Medical History: Atrial Fibrillation, Cancer, Chest Pain / Angina, CVA/TIA , Deep Vein Thrombosis (DVT), Eye Disorder, GERD/Reflux, Hypertension, Renal Disease Additional Past Medical History / Comment(s): carotid stenosis,DVT in Right leg after CABG , see Dr Cuenca H&P, "Stroke in left eye- blurry vision", RENAL INSUFFIENCY , SKIN CANCER-BASAL CELL.BURSITIS, POLYMYAGIA, SCIATICA,HIATAL HERNIA History of Any Multi-Drug Resistant Organisms: None Reported Past Surgical History: Cholecystectomy, Coronary Bypass/CABG, Heart Catheterization With Stent, Hysterectomy Additional Past Surgical History / Comment(s): cataracts, TRIPLE VESSEL CABG,2 CARDIAC STENTS. Past Anesthesia/Blood Transfusion Reactions: No Reported Reaction Additional Past Anesthesia/Blood Transfusion Reaction / Comment(s): CLAUSTROPHOBIA Date of Last Stent Placement:: 2011 Past Psychological History: No Psychological Hx Reported Smoking Status: Never smoker Past Alcohol Use History: None Reported Past Drug Use History: None Reported - Past Family History Mother Family Medical History: Myocardial Infarction ([place]) Additional Family Medical History / Comment(s): heart PROBLEMS Father Additional Family Medical History / Comment(s): HEART PROBLEMS General Exam - General Exam Comments Initial Comments: GENERAL: The patient is well nourished and well hydrated. VITAL SIGNS: Heart rate, blood pressure, respiratory rate reviewed as recorded in nurse's notes. EYES: Pupils are round and reactive. Extraocular movements are intact. No conjunctival / lid redness or swelling. ENT: No external evidence of injury, swelling, or ecchymosis. Airway is patent. Throat is clear. NECK: Nontender. No swelling or evidence of injury. No subcutaneous emphysema. Trachea is midline. No thyroid mass. HEART: Regular rate and rhythm. Good peripheral pulses. LUNGS/CHEST: Breath sounds clear and equal bilaterally. No rales, rhonchi, or wheezes. No ecchymosis, subcutaneous emphysema, or tenderness. ABDOMEN: Abdomen soft without tenderness. No palpable masses or organomegaly. No peritoneal signs. No abdominal wall swelling or ecchymosis. EXTREMITIES: No extremity tenderness. Normal muscle tone and function. No thoracolumbar tenderness. NEUROLOGIC: Sensation is grossly intact. Cranial nerve exam reveals face is symmetrical, tongue is midline, speech is clear. SKIN: No abrasions or ecchymosis is noted. No induration or masses noted. PSYCHIATRIC: Alert and oriented. Appropriate behavior and judgment. Limitations: no limitations Course Vital Signs 06/02/18 14:46 Temperature 97.7 F Pulse Rate 66 Respiratory 18 Rate Blood Pressure 177/80 O2 Sat by Pulse 98 Oximetry Chest Pain MDM - MDM The patient was seen and examined. All diagnostics were reviewed. An EKG was done and this shows a normal sinus rhythm at a rate of 68. There is no acute ST -T wave changes identified. The WA intervals 134, QRS duration is 90, and the QTc interval slightly prolonged at 499. The patient does receive aspirin as well as Nitropaste. On recheck she is not having any further chest pain. She does feel improved. She had a chest x-ray did show his negative. The cardiac profile labs are negative. The exact cause of her chest pain is not definitively determine but the possibility of acute coronary syndrome certainly is possible. Is felt as though she benefit from admission to the hospital with cardiology consultation. Case is discussed with [place] from internal medicine and she is agreeable with admission with cardiology to consult. Disposition Clinical Impression: Chest pain, Unstable angina, History of heart artery stent Disposition: ADMITTED IP TO THIS HOSP Condition: Fair Time of Disposition: 16:51 Decision Date: 06/02/18 Decision Time: 16:51
[2018-06-02] MEDS ORDERED: ALPRAZolam 0.25 MG TAB PO PRN (16:54)
--- NOTE | 2018-06-02 18:43 | ECHOF ---
Referral Reason: MEASUREMENTS -------- HEIGHT: 165.1 cm WEIGHT: 61.2 kg BP: 164/111 IVSd: 0.9 cm (0.6 - 1.1) LVIDd: 4.4 cm (3.9 - 5.3) LVPWd: 0.9 cm (0.6 - 1.1) IVSs: 1.2 cm LVIDs: 3.8 cm LVPWs: 1.2 cm LAESV Index (A-L): 67.84 ml/m Ao Diam: 3.4 cm (2.0 - 3.7) AV Cusp: 1.9 cm (1.5 - 2.6) LA Diam: 4.4 cm (2.7 - 3.8) MV E Cody: 1.17 m/s MV DecT: 206 ms MV A Cody: 0.75 m/s MV E/A Ratio: 1.56 RAP: 5.00 mmHg RVSP: 40.06 mmHg FINDINGS -------- Sinus rhythm. This was a technically good study. The left ventricular size is normal. Left ventricular wall thickness is normal. Overall left vent ricular systolic function is low-normal with, an EF between 50 - 55 %. The right ventricle is normal in size and function. LA is severely dilated >40 ml/m2 The right atrium is normal in size. The aortic valve is trileaflet, and appears structurally normal. No aortic stenosis or regurgitation. The mitral valve leaflets are mildly thickened. Dvkmxefv-gr-[id number] mitral regurgitation is present. Moderate tricuspid regurgitation present. There is mild pulmonary hypertension. The right ventric ular systolic pressure, as measured by Doppler, is 40.06mmHg. Trace/mild (physiologic) pulmonic regurgitation. The aortic root size is normal. IVC Not well visulized. There is no pericardial effusion. CONCLUSIONS -------- 1. Sinus rhythm. 2. This was a technically good study. 3. The left ventricular size is normal. 4. Left ventricular wall thickness is normal. 5. Overall left ventricular systolic function is low-normal with, an EF between 50 - 55 %. 6. LA is severely dilated >40 ml/m2 7. The aortic valve is trileaflet, and appears structurally normal. No aortic stenosis or regurgitati on. 8. The mitral valve leaflets are mildly thickened. 9. Fsbintlq-dv-rkecno mitral regurgitation is present. 10. Moderate tricuspid regurgitation present. 11. There is mild pulmonary hypertension. 12. Trace/mild (physiologic) pulmonic regurgitation. 13. The aortic root size is normal. 14. IVC Not well visulized. 15. There is no pericardial effusion. MUD ENGINEER: Jarrell De La Garza RDCS
[2018-06-02] MEDS ORDERED: APIXABAN 5 MG TAB PO SCH (21:00)
[2018-06-02 21:49] LABS: Creatine Kinase 32 U/L (30-135)
[2018-06-02 21:55] VITALS: BMI 22.4
[2018-06-02] MEDS: ATORVASTATIN 80 MG TAB PO SCH (22:01)
[2018-06-02 22:03] LABS: Creatine Kinase MB 0.6 ng/mL (0.0-2.4); Troponin I <0.012 ng/mL (0.000-0.034)
[2018-06-02] MEDS: NITROGLYCERIN OINT 1 INCH/GM PACKET TOPICAL SCH (23:48)
[2018-06-03 03:55] LABS: Creatine Kinase 35 U/L (30-135)
[2018-06-03 04:08] LABS: Creatine Kinase MB 0.7 ng/mL (0.0-2.4); Troponin I <0.012 ng/mL (0.000-0.034)
[2018-06-03 04:59] LABS: Cholesterol 109 mg/dL (<200); HDL Cholesterol 29 mg/dL (40-60); LDL Cholesterol,Calculated 57 mg/dL (0-99); Triglycerides 115 mg/dL (<150)
[2018-06-03] MEDS: NITROGLYCERIN OINT 1 INCH/GM PACKET TOPICAL SCH ×3 (06:27→19:17)
[2018-06-03] MEDS ORDERED: ASPIRIN 325 MG TAB PO SCH (09:00)
[2018-06-03] MEDS ORDERED: SODIUM CHLORIDE 0.9% 1,000 ML in EMPTY BAG 1 BAG IV ONE (10:11)
[2018-06-03] MEDS ORDERED: ATORVASTATIN 80 MG TAB PO STA (10:11)
[2018-06-03] MEDS ORDERED: ALPRAZolam 0.25 MG TAB PO PRN (10:11)
[2018-06-03] MEDS ORDERED: NITROGLYCERIN SL TABS 0.4 MG TAB SUBLINGUAL PRN (10:11)
[2018-06-03] MEDS ORDERED: ASPIRIN 325 MG TAB PO STA (10:20)
[2018-06-03] MEDS ORDERED: ASPIRIN 81 MG PO STA (10:24)
[2018-06-03] MEDS: CLOPIDOGREL 75 MG TAB PO SCH (10:35)
[2018-06-03] MEDS: SPIRONOLACTONE 25 MG TAB PO SCH (10:35)
[2018-06-03] MEDS: LOSARTAN 25 MG TAB PO SCH (10:35)
[2018-06-03] MEDS: RANOLAZINE 500 MG TAB.ER.12H PO SCH (10:36)
[2018-06-03] MEDS: AMIODARONE 100 MG TAB PO SCH (10:36)
[2018-06-03] MEDS: VIT A,C & E-LUTEIN-MINERALS 1 EACH TAB PO SCH (10:36)
--- NOTE | 2018-06-03 10:36 | CONS ---
CONSULTATION This patient's medical records and old charts reviewed. She came to the emergency room because patient has being having intermittent chest discomfort in the mid-chest area. The pain is burning in character. It is not radiating and the pain comes and goes. Patient has been having this kind of pain on and off. Patient has had prior history of coronary artery bypass surgery. Patient underwent cardiac catheterization in February of 2018. The grafts were found to be patent. The patient underwent a stent to the lummi RCA. According to her, she had some relief for some time, but then she continued to have this chest pains. Patient had a stress test done about 2 weeks ago. I do not have the results. Because of the recurrent continued chest discomfort, the patient came to the emergency room and is admitted. Patient has a history of hypertension and history of paroxysmal atrial fibrillation. HOME MEDICATIONS: Include Avapro, Xanax, isosorbide, Aldactone, apixaban, Ranexa, amiodarone 100 mg daily, Plavix, and the nitroglycerin. PAST MEDICAL HISTORY: Includes a history of atrial fibrillation, history of possible CVA, DVT, history of carotid artery stenosis, coronary artery bypass surgery, cholecystectomy, and hysterectomy and recent stent placement. PHYSICAL EXAMINATION: At present reveals an 78-year-old female who is thinly built, does not appear to be in any acute distress. In the emergency room, this patient's systolic blood pressure was 177. At present, patient is lying comfortably without any distress. Blood pressure now is 136/72 mmHg. HEENT examination is negative. Neck is supple. There is no increase in jugular venous pressure. Both the carotid pulses are felt. There is no bruit. Chest is symmetrical. Heart the PMI is not felt. First and second heart sounds are heard. There is a left precordial pulsations are noted and there is a grade 3/6 holosystolic murmur noted. Lungs are clinically clear to auscultation and percussion. Abdomen is soft. Liver and spleen are not enlarged. Extremities, peripheral pulsations are 1+. EKG shows normal sinus rhythm without any acute ischemic changes. Patient's cardiac enzymes are negative. Echocardiogram shows no significant wall motion abnormality. Patient has evidence of moderate to severe mitral regurgitation. FINAL IMPRESSION: 1. This patient has been having intermittent midsternal burning chest pain, suggestive of angina. There is no evidence of acute coronary syndrome. Patient is status post recent stent to the RCA, rule out any significant restenosis at the site of prior stent placement. 2. Patient has a prior history of coronary artery bypass surgery. Patient's thought grafts were patent. 3. Patient has evidence of moderate to severe mitral regurgitation. 4. Patient has a history of atrial fibrillation. RECOMMENDATIONS: At present, patient is advised further evaluation with a cardiac catheterization for definitive diagnosis. I will hold the Eliquis. Will continue patient on baby aspirin. Cardiac catheterization will be done by Dr. Guillen on Tuesday. MMODL / IJN: [id number] /
[2018-06-03] MEDS: PANTOPRAZOLE 40 MG/10 ML VIAL IVP SCH (16:30)
--- NOTE | 2018-06-03 18:20 | P.HPIM ---
History of Present Illness 78-year-old pleasant female with history of CABG in the past and had a cardiac catheterization and stenting in 2018 came in with the epigastric or retrosternal burning sensation on and off not related to food along with the some shortness of breath denied and diaphoresis nausea lightheadedness. Patient pain is about 3/10 in severity has been going on on and off for last 2 days. Patient has been taking her medications on regular basis. She denied any fever chills cough runny nose chest x-ray did not show any pneumonic process. She has history of proximal atrial fibrillation for which patient is on eliquis itches being held temporarily possible cardia catheterization on Tuesday patient was evaluated by cardiology please refer to the documentation regarding EKG findings and troponins are negative. Review of Systems REVIEW OF SYSTEMS: CONSTITUTIONAL: No fever, no malaise, no fatigue. HEENT: No recent visual problems or hearing problems. Denied any sore throat. CARDIOVASCULAR: No orthopnea, PND, no palpitations, no syncope. PULMONARY: No shortness of breath, no cough, no hemoptysis. GASTROINTESTINAL: No diarrhea, no nausea, no vomiting, no abdominal pain. Normoactive bowel sounds. NEUROLOGICAL: No headaches, no weakness, no numbness. HEMATOLOGICAL: Denies any bleeding or petechiae. GENITOURINARY: Denies any burning micturition, frequency, or urgency. MUSCULOSKELETAL/RHEUMATOLOGICAL: Denies any joint pain, swelling, or any muscle pain. ENDOCRINE: Denies any polyuria or polydipsia. The rest of the 14-point review of systems is negative. Past Medical History Past Medical History: Atrial Fibrillation, Cancer, Chest Pain / Angina, CVA/TIA , Deep Vein Thrombosis (DVT), Eye Disorder, GERD/Reflux, Hypertension, Renal Disease Additional Past Medical History / Comment(s): carotid stenosis,DVT in Right leg after CABG , see Dr Cuenca H&P, "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 Past Anesthesia/Blood Transfusion Reactions: No Reported Reaction Additional Past Anesthesia/Blood Transfusion Reaction / Comment(s): CLAUSTROPHOBIA Date of Last Stent Placement:: 2017 Smoking Status: Never smoker - Past Family History Mother Family Medical History: Myocardial Infarction ([place]) Additional Family Medical History / Comment(s): heart PROBLEMS Father Additional Family Medical History / Comment(s): HEART PROBLEMS Medications and Allergies Home Medications Medication Instructions Recorded Confirmed Type ALPRAZolam [Xanax] 0.25 mg PO HS PRN 03/25/14 06/02/18 History Irbesartan [Avapro] 75 mg PO DAILY 06/21/14 06/02/18 History Isosorbide Mononitrate [Isosorbide 30 mg PO DAILY 06/19/15 06/02/18 History Mononitrate ER] Amiodarone [Cordarone] 100 mg PO DAILY #30 tab 06/21/15 06/02/18 Rx Spironolactone [Aldactone] 12.5 mg PO DAILY 07/05/17 06/02/18 History Atorvastatin Calcium [Lipitor] 80 mg PO HS 02/20/18 06/02/18 History Clopidogrel [Plavix] 75 mg PO DAILY #30 tab 02/22/18 06/02/18 Rx Nitroglycerin Sl Tabs [Nitrostat] 0.4 mg SUBLINGUAL Q5M PRN #25 tab 02/22/18 Rx Apixaban [Eliquis] 5 mg PO BID 06/02/18 06/02/18 History Ranolazine [Ranexa] 1,000 mg PO DAILY 06/02/18 06/02/18 History Allergies Allergy/AdvReac Type Severity Reaction Status Date / Time No Known Allergies Allergy Verified 06/02/18 21:43 Physical Exam Vitals: Vital Signs Temp Pulse Pulse Resp BP BP Pulse Ox 06/03/18 17:12 98 06/03/18 16:00 97.9 F 66 18 144/69 97 06/03/18 11:34 98.7 F 63 20 117/68 95 06/03/18 08:00 18 06/03/18 07:12 98.3 F 60 18 136/72 96 06/03/18 04:19 98.0 F 68 15 132/70 94 L 06/03/18 04:00 16 06/03/18 00:00 16 06/02/18 23:35 98.0 F 65 14 134/65 94 L 06/02/18 21:49 97.7 F 78 15 195/89 94 L 06/02/18 20:00 55 L 16 170/91 94 L 06/02/18 19:00 56 L 16 165/75 Intake and Output 06/03/18 06/03/18 06/03/18 06:59 14:59 22:59 Intake Total 580 Balance 580 Intake: Oral 580 Other: # Voids 1 1 PHYSICAL EXAMINATION: GENERAL: The patient is alert and oriented x3, not in any acute distress. Well developed, well nourished. HEENT: Pupils are round and equally reacting to light. EOMI. No scleral icterus. No conjunctival pallor. Normocephalic, atraumatic. No pharyngeal erythema. No thyromegaly. CARDIOVASCULAR: S1 and S2 present. No murmurs, rubs, or gallops. PULMONARY: Chest is clear to auscultation, no wheezing or crackles. ABDOMEN: Soft, nontender, nondistended, normoactive bowel sounds. No palpable organomegaly. MUSCULOSKELETAL: No joint swelling or deformity. EXTREMITIES: No cyanosis, clubbing, or pedal edema. NEUROLOGICAL: Gross neurological examination did not reveal any focal deficits. SKIN: No rashes. Results CBC & Chem 7: 06/02/18 15:23 06/02/18 15:23 Labs: Abnormal Lab Results - Last 24 Hours (Table) 06/03/18 Range/Units 02:26 HDL Cholesterol 29 L (40-60) mg/dL Thrombosis Risk Factor Assmnt - Choose All That Apply Each Risk Factor Represents 3 Points: Age 75 years or older, History of DVT/PE Thrombosis Risk Factor Assessment Total Risk Factor Score: 6 Thrombosis Risk Factor Assessment Level: High Risk Assessment and Plan Plan: 1 chest pain retrosternal burning sensation: Patient probably has unstable angina consent had recent stent placement restenosis is definitely a concern because of which patient will undergo cardiac catheterization on Tuesday. Continue with dual antiplatelet therapy beta maritza. Severity of gastroesophageal reflux disease contributing to retrosternal burning sensation cannot be ruled out patient was started on Protonix. Patient had normal ejection fraction no significant wall motion abnormalities although left atrium is severely dilated -Carotid artery disease and CABG in the past -Atrial fibrillation presently sinus rhythm rate controlled patient have proximal A. fib continue with anticoagulation -Moderate to severe mitral regurgitation -History of DVT in the past -gAstro esophageal reflux disease -Hypertension For above-mentioned chronic medical problems patient will be resumed and continued on appropriate home medications
[2018-06-03] MEDS ORDERED: ACETAMINOPHEN TAB 325 MG TAB PO PRN (19:29)
[2018-06-03] MEDS: ATORVASTATIN 80 MG TAB PO SCH (19:31)
[2018-06-03] MEDS: ALPRAZolam 0.5 MG TAB PO PRN (20:51)
[2018-06-04] MEDS: NITROGLYCERIN OINT 1 INCH/GM PACKET TOPICAL SCH ×4 (07:45→16:27)
[2018-06-04] MEDS: CLOPIDOGREL 75 MG TAB PO SCH (08:02)
[2018-06-04] MEDS: RANOLAZINE 500 MG TAB.ER.12H PO SCH (08:02)
[2018-06-04] MEDS: ASPIRIN 81 MG PO SCH (08:03)
[2018-06-04] MEDS: SPIRONOLACTONE 25 MG TAB PO SCH (08:03)
[2018-06-04] MEDS: LOSARTAN 25 MG TAB PO SCH (08:03)
[2018-06-04] MEDS: PANTOPRAZOLE 40 MG/10 ML VIAL IVP SCH (08:03)
[2018-06-04] MEDS: VIT A,C & E-LUTEIN-MINERALS 1 EACH TAB PO SCH (08:05)
[2018-06-04] MEDS: AMIODARONE 100 MG TAB PO SCH (08:06)
--- NOTE | 2018-06-04 16:51 | P.PN ---
Subjective Patient is admitted for chest pain patient will undergo cardiac catheterization on Tuesday Constitutional: Denied any fatigue denied any fever. Cardio vascular: denied any chest pain, palpitations Gastrointestinal denied any nausea vomiting Pulmonary: Denied any shortness of breath cough Neurologic denied any new focal deficits All inpatient medications were reviewed and appropriate changes in these medications as dictated in the interval history and assessment and plan. Objective - Vital Signs Vital signs: Vital Signs Temp 98.1 F 06/04/18 16:10 Pulse 62 06/04/18 16:10 Resp 16 06/04/18 16:10 BP 157/78 06/04/18 16:10 Pulse Ox 98 06/04/18 16:10 Intake & Output 06/03/18 06/04/18 06/04/18 18:59 06:59 18:59 Intake Total 580 960 Balance 580 960 Intake: Intake, IV Titration 120 Amount Sodium Chloride 0.9% 1, 120 000 ml In Empty Bag 1 bag @ 1 ML/KG/HR 61.2 mls/hr IV .[id number] ONE Rx#: [id number] Oral 580 840 Other: # Voids 1 1 - Exam PHYSICAL EXAMINATION: GENERAL: The patient is alert and oriented x3, not in any acute distress. Well developed, well nourished. HEENT: Pupils are round and equally reacting to light. EOMI. No scleral icterus. No conjunctival pallor. Normocephalic, atraumatic. No pharyngeal erythema. No thyromegaly. CARDIOVASCULAR: S1 and S2 present. No murmurs, rubs, or gallops. PULMONARY: Chest is clear to auscultation, no wheezing or crackles. ABDOMEN: Soft, nontender, nondistended, normoactive bowel sounds. No palpable organomegaly. MUSCULOSKELETAL: No joint swelling or deformity. EXTREMITIES: No cyanosis, clubbing, or pedal edema. NEUROLOGICAL: Gross neurological examination did not reveal any focal deficits. SKIN: No rashes. - Labs CBC & Chem 7: 06/02/18 15:23 06/02/18 15:23 Assessment and Plan Plan: 1 chest pain retrosternal burning sensation: Patient probably has unstable angina consent had recent stent placement restenosis is definitely a concern because of which patient will undergo cardiac catheterization on Tuesday. Continue with dual antiplatelet therapy beta maritza. Severity of gastroesophageal reflux disease contributing to retrosternal burning sensation cannot be ruled out patient was started on Protonix. Patient had normal ejection fraction no significant wall motion abnormalities although left atrium is severely dilated -Carotid artery disease and CABG in the past -Atrial fibrillation presently sinus rhythm rate controlled patient have proximal A. fib continue with anticoagulation -Moderate to severe mitral regurgitation -History of DVT in the past -gAstro esophageal reflux disease -Hypertension For above-mentioned chronic medical problems patient will be resumed and continued on appropriate home medications
[2018-06-04] MEDS: ALPRAZolam 0.5 MG TAB PO PRN (19:35)
[2018-06-04] MEDS: ATORVASTATIN 80 MG TAB PO SCH (19:35)
--- NOTE | 2018-06-04 22:55 | PN ---
PROGRESS NOTE HISTORY: Patient is admitted to the hospital with recurrence of chest pain. The patient is status post stent to the RCA. Blood pressure 157/78 mmHg. The patient is afebrile. Respirations are not labored. First and second heart sounds are normal. Lungs are clinically clear to auscultation and percussion. The patient is considered for cardiac catheterization. MMODL / IJN: [id number] /
[2018-06-05] MEDS: NITROGLYCERIN OINT 1 INCH/GM PACKET TOPICAL SCH ×3 (01:06→15:38)
[2018-06-05 03:46] VITALS: RESP 18
[2018-06-05] MEDS: AMIODARONE 100 MG TAB PO SCH (06:18)
[2018-06-05] MEDS: LOSARTAN 25 MG TAB PO SCH (06:18)
[2018-06-05] MEDS: PANTOPRAZOLE 40 MG/10 ML VIAL IVP SCH (06:18)
[2018-06-05] MEDS: ASPIRIN 81 MG PO SCH (06:19)
[2018-06-05] MEDS: CLOPIDOGREL 75 MG TAB PO SCH (06:19)
[2018-06-05] MEDS: RANOLAZINE 500 MG TAB.ER.12H PO SCH (06:19)
[2018-06-05] MEDS ORDERED: LIDOCAINE 1% INJ 10MG/ML (20 ML MDV) ONE (07:54)
[2018-06-05] MEDS ORDERED: fentaNYL (PF) 50 MCG/ML 2 ML AMP ONE (07:54)
[2018-06-05] MEDS ORDERED: MIDAZOLAM 2 MG/2 ML VIAL ONE (07:54)
[2018-06-05] MEDS ORDERED: fentaNYL (PF) 50 MCG/ML 2 ML AMP IV ONE (08:05)
[2018-06-05] MEDS ORDERED: MIDAZOLAM 2 MG/2 ML VIAL IVP ONE (08:05)
[2018-06-05] MEDS ORDERED: IV FLUID CONTINUATION 800 ML IV ONE (08:06)
[2018-06-05] MEDS ORDERED: LIDOCAINE 1% INJ 10MG/ML (20 ML MDV) SQ ONE (08:10)
[2018-06-05] MEDS ORDERED: hydrALAZINE HCL 20 MG/ML 1 ML VIAL ONE (08:15)
[2018-06-05] MEDS ORDERED: hydrALAZINE HCL 20 MG/ML 1 ML VIAL IVP ONE (08:17)
[2018-06-05] MEDS ORDERED: IOPAMIDOL-370 125ML BTL INJ ONE (08:25)
[2018-06-05] MEDS ORDERED: RX INFO: IV CONTRAST WAS GIVEN 1 EACH MISC MISCELLANE PRN (08:39)
[2018-06-05] MEDS ORDERED: SODIUM CHLORIDE 0.9% 1,000 ML IV SCH (08:45)
--- NOTE | 2018-06-05 08:49 | P.PCN ---
Date of Procedure: 06/05/18 Preoperative Diagnosis: Unstable angina Postoperative Diagnosis: The same. Stable coronary artery disease Procedure(s) Performed: Left heart catheterization with selective injection of the 2 vein grafts, one GODINEZ graft on free radial graft. No LV gram Description of Procedure: This is a 78-year-old female with history of ischemic heart disease who had stent placement of the stebbins right coronary artery in the midportion in February of this year. Patient is admitted to the hospital with recurrent pains and was evaluated by Dr. VC Lynn. A cardiac catheterization is recommended to rule out any progression of the disease especially in the in-stent stenosis. Patient and family were explained the risks and benefits of the procedur CONSENT:I have discussed the risks, benefits and alternative therapies for the above-mentioned procedure and for both sedation/analgesia as well as necessary blood product administration, if indicated, as they pertain to this patient. The patient has indicated understanding and acceptance of the risks and procedures discussed. PROCEDURE: Patient was brought to the lab in a fasting state. Patient was given some IV sedation. The right groin is infiltrated with lidocaine and right femoral artery was entered using Seldinger technique. A 6-Romansh catheter was left in place and selective coronary arteriography was performed. Patient tolerated the procedure well. Femoral angiogram was performed and manual compression was applied for hemostasis. No immediate complications were noted and patient was transferred to [facility] in a stable condition Conscious Sedation: Versed 1mg Fentanyl 25 g Duration 20minutes HEMODYNAMICS: The aortic pressure is about 160/80. There was no gradient across the aortic valve. The left ventricular end-diastolic pressure is 16 SELECTIVE CORONARY ARTERIOGRAPHY: LEFT MAIN: Normal length and patent THE LEFT ANTERIOR DESCENDING CORONARY ARTERY: Calcified vessel and totally occluded in the proximal portion THE LEFT CIRCUMFLEX AND IS CORONARY ARTERY: Calcified vessel and totally occluded in the proximal portion THE RIGHT CORONARY ARTERY:. This is a good caliber vessel giving rise good-sized PDA and PLV. There is diffuse disease in the proximal mid and distal portion of the RCA without any Sigmund focal lesion. The previous the stented area. Appears to be patent. THE GODINEZ GRAFT TO THE LAD: This is patent throughout its length and also distal anastomosis. The LAD beyond the insertion site is free of any obstructive disease. The vein graft to the OM BRANCH: This is patent throat its length and also distal anastomosis. The OM branch has mild diffuse disease which is stable. The vein graft to the intermediate or diagonal branch: This is patent at the proximal and distal anastomosis. There is about 40-50% stenosis of the mid segment of this graft which appears to be stable. The free radial graft to the RCA: This is patent at the proximal and distal anastomosis. The PDA appears to be free of any Sigmund occlusive disease. LEFT VENTRICULOGRAPHY: Not performed FINAL IMPRESSION: Stable coronary artery disease with patent stent in the RCA. 2 vein grafts and 2 articular grafts are patent with about 40-50% lesion in the vein graft to the intermediate/diagonal PLAN: Maximum medical therapy and risk factor modification PROGNOSIS: Fair
--- NOTE | 2018-06-05 15:34 | P.DS ---
Providers Date of admission: 06/03/18 14:35 Attending physician: Shanika Yusuf Consults: 06/02/18 16:51 Consult Physician Urgent Consulting Provider: Terrance Guillen Consult Reason/Comments: cp Do you want consulting provider notified?: Yes Primary care physician: Stated None Hospital Course: Patient is admitted for chest pain mostly epigastric burning sensation probably secondary to gastritis patient and went cardiac catheterization because of her high risk for in-stent stenosis, cardiac catheterization did not show any significant atherosclerotic coronary occlusive disease patient is cleared for discharge were discharged today in stable medical condition to home. And will be discharged on 14 days of [facility] PHYSICAL EXAMINATION: GENERAL: The patient is alert and oriented x3, not in any acute distress. Well developed, well nourished. HEENT: Pupils are round and equally reacting to light. EOMI. No scleral icterus. No conjunctival pallor. Normocephalic, atraumatic. No pharyngeal erythema. No thyromegaly. CARDIOVASCULAR: S1 and S2 present. No murmurs, rubs, or gallops. PULMONARY: Chest is clear to auscultation, no wheezing or crackles. ABDOMEN: Soft, nontender, nondistended, normoactive bowel sounds. No palpable organomegaly. MUSCULOSKELETAL: No joint swelling or deformity. EXTREMITIES: No cyanosis, clubbing, or pedal edema. NEUROLOGICAL: Gross neurological examination did not reveal any focal deficits. SKIN: No rashes. Assessment and Plan Plan: 1 chest pain retrosternal burning sensation: due to gastritis status post catheterization which did not show any significant stenoses that need to be stented. Patient does have hiatal hernia -Coronary artery disease and CABG in the past -Atrial fibrillation presently sinus rhythm rate controlled patient have proximal A. fib continue with anticoagulation -Moderate to severe mitral regurgitation -History of DVT in the past -gAstro esophageal reflux disease -Hypertension Patient Condition at Discharge: Fair Plan - Discharge Summary New Discharge Prescriptions: No Action ALPRAZolam [Xanax] 0.25 mg PO HS PRN PRN Reason: Anxiety Irbesartan [Avapro] 75 mg PO DAILY Isosorbide Mononitrate [Isosorbide Mononitrate ER] 30 mg PO DAILY Amiodarone [Cordarone] 100 mg PO DAILY #30 tab Spironolactone [Aldactone] 12.5 mg PO DAILY Atorvastatin Calcium [Lipitor] 80 mg PO HS Clopidogrel [Plavix] 75 mg PO DAILY #30 tab Nitroglycerin Sl Tabs [Nitrostat] 0.4 mg SUBLINGUAL Q5M PRN #25 tab PRN Reason: Chest Pain Apixaban [Eliquis] 5 mg PO BID Ranolazine [Ranexa] 1,000 mg PO DAILY Discharge Medication List ALPRAZolam [Xanax] 0.25 mg PO HS PRN 03/25/14 [History] Irbesartan [Avapro] 75 mg PO DAILY 06/21/14 [History] Isosorbide Mononitrate [Isosorbide Mononitrate ER] 30 mg PO DAILY 06/19/15 [ History] Amiodarone [Cordarone] 100 mg PO DAILY #30 tab 06/21/15 [Rx] Spironolactone [Aldactone] 12.5 mg PO DAILY 07/05/17 [History] Atorvastatin Calcium [Lipitor] 80 mg PO HS 02/20/18 [History] Clopidogrel [Plavix] 75 mg PO DAILY #30 tab 02/22/18 [Rx] Nitroglycerin Sl Tabs [Nitrostat] 0.4 mg SUBLINGUAL Q5M PRN #25 tab 02/22/18 [Rx ] Apixaban [Eliquis] 5 mg PO BID 06/02/18 [History] Ranolazine [Ranexa] 1,000 mg PO DAILY 06/02/18 [History] Follow up Appointment(s)/Referral(s): Raleigh Cuenca MD [STAFF PHYSICIAN] - 06/09/18 8:45 am (Follow up in the office for a Site Check with Dr. Cuenca as scheduled) Patient Instructions/Handouts: *Surgery [facility] - After Heart Catheterization - Transport Analyst Instructions Activity/Diet/Wound Care/Special Instructions: See Activity Restriction Instructions
[2018-06-05] MEDS: SPIRONOLACTONE 25 MG TAB PO SCH (15:39)
[2018-06-05] MEDS: VIT A,C & E-LUTEIN-MINERALS 1 EACH TAB PO SCH (15:39)
[2018-06-05 15:40] VITALS: BP 137/75; PULSE 63; TEMP 97.7
[2018-06-06] MEDS ORDERED: PANTOPRAZOLE 40 MG TABLET PO SCH (07:30)
== END 2018-06-05 16:30 | disposition home or self-care (01) | DRG 392 ==
LOC: EC 14:42 → 1SOBS 16:51 → OBSVTOIN 06-03 14:35
PROVIDERS: ADMIT Hospitalist; ATTEND Hospitalist
PROC: B2131ZZ Fluoroscopy of Multiple Coronary Artery Bypass Grafts using Low Osmolar Contrast (ICD-10-PCS; 2018-06-05)
PROC: B2111ZZ Fluoroscopy of Multiple Coronary Arteries using Low Osmolar Contrast (ICD-10-PCS; 2018-06-05)
PROC: 4A023N7 Measurement of Cardiac Sampling and Pressure, Left Heart, Percutaneous Approach (ICD-10-PCS; principal; 2018-06-05 07:45)
DX: K29.70 Gastritis, unspecified, without bleeding (principal); I25.810 Atherosclerosis of coronary artery bypass graft(s) without angina pectoris; F40.240 Claustrophobia; I10 Essential (primary) hypertension; I34.0 Nonrheumatic mitral (valve) insufficiency; I48.0 Paroxysmal atrial fibrillation; K21.9 Gastro-esophageal reflux disease without esophagitis; K44.9 Diaphragmatic hernia without obstruction or gangrene; I65.29 Occlusion and stenosis of unspecified carotid artery; M54.30 Sciatica, unspecified side; M35.3 Polymyalgia rheumatica; Z79.01 Long term (current) use of anticoagulants; Z79.02 Long term (current) use of antithrombotics/antiplatelets; Z79.899 Other long term (current) drug therapy; Z85.828 Personal history of other malignant neoplasm of skin; Z95.5 Presence of coronary angioplasty implant and graft; Z95.1 Presence of aortocoronary bypass graft; Z90.710 Acquired absence of both cervix and uterus; Z86.73 Personal history of transient ischemic attack (TIA), and cerebral infarction without residual deficits; Z86.718 Personal history of other venous thrombosis and embolism; Z90.49 Acquired absence of other specified parts of digestive tract; Z98.42 Cataract extraction status, left eye; Z98.41 Cataract extraction status, right eye; Z96.1 Presence of intraocular lens; Z82.49 Family history of ischemic heart disease and other diseases of the circulatory system
CPT/HCPCS: 36415; 71046; 80053; 80061; 82550; 82553; 83735; 83880; 84484; 85025; 85610; 85730; 93005; 93306; 93459; 99285

== ENCOUNTER 2019-02-02 02:48 | Inpatient (IN) | payer MEDICARE, BC ==
--- NOTE | 2019-02-02 03:23 | ED ---
Chest Pain HPI - General Chief Complaint: Chest Pain Stated Complaint: SOB Time Seen by Provider: 02/02/19 03:03 Source: patient, EMS Mode of arrival: EMS - History of Present Illness Initial Comments: This patient is an 78-year-old woman with history of coronary artery disease, also reporting history of GERD. She states she has had approximately one week of worsening substernal chest pain area she states that she has tried her medication for GERD and it is not giving relief. She has the impression that this is a different type of pain, in addition to the underlying reflux pain. [facility] and then it was felt that she required admission for cardiology consultation so they have transferred her here. The patient has had a little bit of associated nausea. She denies dyspnea, diaphoresis, syncope, lightheadedness or palpitation. MD Complaint: chest pain Onset/Timin -: week(s) Onset: during rest Pain Location: substernal Pain Radiation: none Severity: moderate Quality: aching Consistency: intermittent Improves With: nothing Worsens With: nothing Anginal Symptoms: nausea Treatments Prior to Arrival: oxygen - Related Data Home Medications Medication Instructions Recorded Confirmed ALPRAZolam [Xanax] 0.25 mg PO HS PRN 03/25/14 06/02/18 Irbesartan [Avapro] 75 mg PO DAILY 06/21/14 06/02/18 Isosorbide Mononitrate [Isosorbide 30 mg PO DAILY 06/19/15 06/02/18 Mononitrate ER] Spironolactone [Aldactone] 12.5 mg PO DAILY 07/05/17 06/02/18 Atorvastatin Calcium [Lipitor] 80 mg PO HS 02/20/18 06/02/18 Apixaban [Eliquis] 5 mg PO BID 06/02/18 06/02/18 Ranolazine [Ranexa] 1,000 mg PO DAILY 06/02/18 06/02/18 Previous Rx's Medication Instructions Recorded Clopidogrel [Plavix] 75 mg PO DAILY #30 tab 02/22/18 Nitroglycerin Sl Tabs [Nitrostat] 0.4 mg SUBLINGUAL Q5M PRN #25 tab 02/22/18 Amiodarone [Cordarone] 100 mg PO DAILY tab 12/03/18 Allergies Allergy/AdvReac Type Severity Reaction Status Date / Time No Known Allergies Allergy Verified 06/02/18 21:43 Review of Systems ROS Statement: Those systems with pertinent positive or pertinent negative responses have been documented in the HPI. ROS Other: All systems not noted in ROS Statement are negative. Constitutional: Denies: fever, chills, weakness Respiratory: Denies: cough, dyspnea Cardiovascular: Reports: chest pain. Denies: palpitations, orthopnea, edema, syncope Gastrointestinal: Reports: nausea, diarrhea. Denies: abdominal pain, vomiting Genitourinary: Denies: dysuria, hematuria Musculoskeletal: Denies: back pain Skin: Denies: rash Neurological: Denies: headache, weakness, numbness EKG Findings - EKG Results: EKG: interpreted by MADALYN, sinus rhythm (Rate 78 bpm), normal axis - Blocks, [place], Hypertrophy, ST Abn: AV and intraventricular conduction: 1 AV block Repolarization changes or abnormalities: ST or T wave suggestive of ischemia, Q- T interval prolongation Past Medical History Past Medical History: Atrial Fibrillation, Cancer, Chest Pain / Angina, CVA/TIA, Deep Vein Thrombosis (DVT), Eye Disorder, GERD/Reflux, Hypertension, Renal Disease Additional Past Medical History / Comment(s): carotid stenosis,DVT in Right leg after CABG , see Dr Cuenca H&P, "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 Past Anesthesia/Blood Transfusion Reactions: No Reported Reaction Additional Past Anesthesia/Blood Transfusion Reaction / Comment(s): CLAUSTROPHOBIA Date of Last Stent Placement:: 2017 Past Psychological History: No Psychological Hx Reported Smoking Status: Never smoker - Past Family History Mother Family Medical History: Myocardial Infarction (MA) Additional Family Medical History / Comment(s): heart PROBLEMS Father Additional Family Medical History / Comment(s): HEART PROBLEMS General Exam General appearance: alert, in no apparent distress Head exam: Present: atraumatic, normocephalic Eye exam: Present: normal appearance. Absent: scleral icterus, conjunctival injection ENT exam: Present: normal oropharynx Neck exam: Present: normal inspection Respiratory exam: Present: rales (Bilateral lower lung gonsalez). Absent: respiratory distress, wheezes, rhonchi, stridor Cardiovascular Exam: Present: regular rate, normal rhythm, systolic murmur, gallop. Absent: diastolic murmur, rubs GI/Abdominal exam: Present: soft. Absent: distended, tenderness, guarding, rebound, rigid, mass Extremities exam: Present: normal inspection, normal capillary refill. Absent: pedal edema, calf tenderness Back exam: Present: normal inspection. Absent: CVA tenderness (R), CVA tenderness (L) Neurological exam: Present: alert Skin exam: Present: warm, dry, intact, normal color. Absent: rash Course Vital Signs 02/02/19 02/02/19 02/02/19 02:51 03:12 03:20 Temperature 98.3 F Pulse Rate 78 79 75 Respiratory 18 23 18 Rate Blood Pressure 136/81 136/81 136/81 O2 Sat by Pulse 97 95 Oximetry 02/02/19 02/02/19 03:30 03:40 Temperature Pulse Rate 75 75 Respiratory 16 16 Rate Blood Pressure 136/81 124/71 O2 Sat by Pulse 96 96 Oximetry Disposition Clinical Impression: Chest pain, Congestive heart failure Disposition: ADMITTED IP TO THIS [facility] Condition: Fair Referrals: Nonstaff,Physician [REFERRING] - 1-2 days
[2019-02-02 03:26] LABS: Anisocytosis Slight; Basophils % (A) 0 %; Eosinophils % (A) 1 %; HCT 35.6 % (34.0-46.0); HGB 11.3 gm/dL (11.4-16.0); Lymphocytes # (A) 1.2 k/uL (1.0-4.8); Lymphocytes % (A) 17 %; MCH 27.9 pg (25.0-35.0); MCHC 31.7 g/dL (31.0-37.0); MCV 87.9 fL (80.0-100.0); Mean Platelet Volume 6.6; Monocytes # (A) 0.4 k/uL (0-1.0); Monocytes % (A) 6 %; Neutrophils # (A) 5.2 k/uL (1.3-7.7); Neutrophils % (A) 74 %; Platelet Count 235 k/uL (150-450); RBC 4.05 m/uL (3.80-5.40); RDW 16.1 % (11.5-15.5); WBC 7.1 k/uL (3.8-10.6)
[2019-02-02 03:42] LABS: Albumin 3.8 g/dL (3.5-5.0); Calcium 8.7 mg/dL (8.4-10.2); Magnesium 2.6 mg/dL (1.6-2.3); Potassium 4.3 mmol/L (3.5-5.1); Total Bilirubin 0.5 mg/dL (0.2-1.3); Total Protein 6.8 g/dL (6.3-8.2)
--- NOTE | 2019-02-02 07:58 | US ---
EXAMINATION TYPE: US abdomen limited DATE OF EXAM: 02/02/2019 COMPARISON: NONE CLINICAL HISTORY: Pain, attention RUQ. Patient stated had chest pain, has pneumonia; gallbladder arlet ele; elevated liver enzymes per RN; on meds for DVT EXAM MEASUREMENTS: Liver Length: 17.0 cm Gallbladder Wall: surgically removed CBD: 1.2 cm Right Kidney: 8.4 x 4.9 x 3.3 cm Pancreas: Within normal limits Liver: no masses seen Gallbladder: surgically absent Evidence for sonographic Evans's sign: no CBD: is prominent, but patient is post cholecystectomy and in 8th decade Right Kidney: No hydronephrosis or masses seen and partially obscured by ribs. IMPRESSION: The common bile duct is dilated up to 1.2 cm, above normal limits. This may be related to the patient 's postcholecystectomy status however distal common bile duct stricture or calculus are possible and further evaluation with MRCP could be performed.
[2019-02-02] MEDS ORDERED: NITROGLYCERIN SL TABS 0.4 MG TAB SUBLINGUAL PRN (10:07)
[2019-02-02] MEDS ORDERED: ALPRAZolam 0.25 MG TAB PO PRN (10:07)
[2019-02-02] MEDS ORDERED: AMIODARONE 100 MG TAB PO SCH (10:15)
[2019-02-02 10:26] LABS: INR 3.3 (<1.2); Prothrombin Time 31.4 sec (9.0-12.0)
[2019-02-02] MEDS: METOPROLOL SUCCINATE (ER) 25 MG TAB.ER.24H PO SCH (10:36)
[2019-02-02] MEDS: ISOSORBIDE MONONITRATE ER 30 MG TAB.ER.24H PO SCH (10:36)
[2019-02-02] MEDS: CLOPIDOGREL 75 MG TAB PO SCH (10:36)
[2019-02-02] MEDS: SPIRONOLACTONE 25 MG TAB PO SCH (10:36)
--- NOTE | 2019-02-02 11:10 | CONS ---
CONSULTATION CHIEF COMPLAINT: Chest pain. Stella is an 78-year-old lady who has had multiple admissions over the last one year. She has known coronary artery disease and had prior bypass surgery and also had angioplasty of [place] right coronary artery. She was admitted to hospital in June of 2018 with chest pain. At that time, she underwent a cardiac catheterization that revealed patent stent within the RCA. At the time of my evaluation this morning, she is comfortable at rest. She describes it as precordial chest pressure that primarily seems to come from the epigastric area, feels more like heartburn than chest pain. It is mild to moderate intensity at rest, unassociated with diaphoresis, unrelated to exertion without definite radiation to neck, arm or back. Her EKG shows sinus rhythm with nonspecific T-wave inversions in the precordial leads. She only had a one set of troponin but has elevated liver enzymes that are new compared to her prior admission. Her creatinine is elevated at 1.5. BNP is elevated at 4217. Her epigastric discomfort and chest pain seem more related to either GERD and possible underlying gallbladder pathology, but will follow her troponins. PAST MEDICAL HISTORY: Significant for coronary artery disease status post CABG, history of atrial fibrillation, hypertension, dyslipidemia. CURRENT MEDICATIONS: Include amiodarone 200 mg daily, Lipitor 80 mg daily, Plavix, Avapro, Imdur, Toprol, Aldactone, Coumadin, and Ranexa. ALLERGIES: There are no known drug allergies. FAMILY HISTORY: Negative for premature coronary artery disease. SOCIAL HISTORY: Negative for smoking, EtOH abuse, or drug abuse. REVIEW OF SYSTEMS: HEENT: Unremarkable. CARDIAC: As described above. RESPIRATORY: Negative. GI: Negative. GENITOURINARY: Negative. ALLERGY/IMMUNOLOGY: Negative. SKIN: Negative. MUSCULOSKELETAL: Negative. ENDOCRINE: Negative. DERM: Negative. CONSTITUTIONAL: Negative. ONCOLOGICAL: Negative. Rest of the system review is not relevant. PHYSICAL EXAM: Comfortable at rest. Vital signs are stable. Chest exam reveals good air entry bilaterally. Heart exam reveals first and second heart sounds, irregular rhythm. No murmur. Abdomen is soft, nontender. Exam of extremities did not reveal any edema. Peripheral pulses are felt. FLOOR LAYER exam did not reveal focal neurological deficits. LABS: Show a hemoglobin of 11.3, platelet count is 235, potassium is 4.3. Liver enzymes are elevated. ASSESSMENT: 1. Precordial chest pain. 2. Elevated liver enzymes. 3. Coronary artery disease, status post coronary artery bypass grafting. 4. chronic atrial fibrillation. PLAN: I am going to obtain an INR on her. Stop the amiodarone and Lipitor, given the elevated liver enzymes. Continue rest of her medications. Will see how she does in the hospital. If she has further episodes of chest pain, then she will need a cardiac catheterization. If the enzymes come back elevated, she will. MMODL / IJN: [id number] /
--- NOTE | 2019-02-02 12:02 | XR ---
EXAMINATION TYPE: XR chest 1V DATE OF EXAM: 02/02/2019 COMPARISON: 02/01/2019 HISTORY: Shortness of breath TECHNIQUE: Single frontal view of the chest is obtained. FINDINGS: Bilateral consolidation small effusion. Diffuse interstitial pattern. Underlying COPD. Hea rt is enlarged. No pneumothorax. Atherosclerotic change aorta. IMPRESSION: 1. Bilateral infiltrate and pleural effusion stable correlate for CHF otherwise consider pneumonia
--- NOTE | 2019-02-02 12:15 | ECHOF ---
Referral Reason: MEASUREMENTS -------- HEIGHT: 160.0 cm WEIGHT: 61.7 kg BP: 107/73 RVIDd: 3.5 cm (< 3.3) IVSd: 1.5 cm (0.6 - 1.1) LVIDd: 4.2 cm (3.9 - 5.3) LVPWd: 1.4 cm (0.6 - 1.1) IVSs: 1.9 cm LVIDs: 3.1 cm LVPWs: 2.1 cm LAESV Index (A-L): 61.22 ml/m Ao Diam: 3.5 cm (2.0 - 3.7) AV Cusp: 1.7 cm (1.5 - 2.6) LA Diam: 5.3 cm (2.7 - 3.8) EPSS: 0.7 cm RAP: 5.00 mmHg RVSP: 72.97 mmHg MV EF SLOPE: 76.09 mm/s (70 - 150) MV EXCURSION: 0.95 cm (> 18.000) FINDINGS -------- Atrial fibrillation. This was a technically adequate study. The left ventricular size is normal. There is moderate concentric left ventricular hypertrophy. O verall left ventricular systolic function is low-normal with, an EF between 50 - 55 %. Septal wall motion is delayed and consistent with prior cardiac surgery. The right ventricle is mildly enlarged. Left atrium is severely dilated by volume. The right atrium is mildly enlarged. Interatrial septal aneurysm. The aortic valve is trileaflet and appears structurally normal. Trace amount of aortic regurgitatio n. There is no evidence of aortic stenosis. Mild mitral annular calcification present. [id number] mitral regurgitation is present. Severe tricuspid regurgitation present. There is severe pulmonary hypertension. The right ventric ular systolic pressure, as measured by Doppler, is 72.97mmHg. Trace/mild (physiologic) pulmonic regurgitation. The aortic root size is normal. IVC not well visualized There is no pericardial effusion. CONCLUSIONS -------- 1. Atrial fibrillation. 2. This was a technically adequate study. 3. The left ventricular size is normal. 4. There is moderate concentric left ventricular hypertrophy. 5. Overall left ventricular systolic function is low-normal with, an EF between 50 - 55 %. 6. Septal wall motion is delayed and consistent with prior cardiac surgery. 7. The right ventricle is mildly enlarged. 8. Left atrium is severely dilated by volume. 9. The right atrium is mildly enlarged. 10. Interatrial septal aneurysm. 11. The aortic valve is trileaflet and appears structurally normal. 12. Trace amount of aortic regurgitation. 13. There is no evidence of aortic stenosis. 14. Mild mitral annular calcification present. 15. Cjamrlnk-[id number] mitral regurgitation is present. 16. Severe tricuspid regurgitation present. 17. There is severe pulmonary hypertension. 18. The right ventricular systolic pressure, as measured by Doppler, is 72.97mmHg. 19. Trace/mild (physiologic) pulmonic regurgitation. 20. The aortic root size is normal. 21. There is no pericardial effusion. INVENTORY ADMINISTRATOR: Kristen Molina RDCS
--- NOTE | 2019-02-02 12:29 | P.CONS ---
History of Present Illness - Reason for Consult Consult date: 02/02/19 Elevated liver enzymes Requesting physician: Marjan Mcginnis - Chief Complaint Chest burning reflux - History of Present Illness 78-year-old female with a past medical history of calculus cholecystectomy 1980 coronary disease, CABG, atrial fibrillation maintained on amiodarone, remote DVT as well as recent DVT 2 months ago maintained on warfarin presented with chest pain burning reflux-type symptoms without abdominal pain. Consult requested for elevated liver enzymes and abnormal ultrasound of the abdomen. Also in the abdomen reported, bile duct dilated to 1.2 cm. Pancreas within normal limits. No masses seen in the liver. Admission liver enzymes total bilirubin 0.5. AST 188. ALT 186. AP 367. White count 7.1. Hemoglobin 11.3. INR 3.3. Troponin 0.017. ProBNP 4270. No history of hepatitis, alcoholism, or hepatobiliary disorders. No history of autoimmune diseases. Denies unintentional weight loss abdominal pain hematemesis hematochezia or melena. EGD August 2018 in [place] for GERD surveillance no evidence of peptic ulcer disease or obvious abnormalities. Colonoscopy 4-5 years ago to her memory a few polyps removed. Previous LFTs in May 2018 total bilirubin 0.6. AST 47. ALT 68. AP 291. No new medications. Home medications include Cordarone, Lipitor, Plavix, warfarin. Review of Systems Constitutional: Denies fever, chills, sweats, weight gain, or loss. HEENT: Negative for migraines, blurred vision or loss, earaches, drainage, tinnitus, oral mucosal lesions, dysphagia, or odynophagia. CARDIAC: Negative for chest pain, arrhythmias, or palpitation. RESPIRATORY: Negative for shortness of breath, hemoptysis, cough, or sputum production. GI: See HPI for pertinent findings. : Negative for hematuria, urgency, frequency, polyuria, or dysuria. GYNc: Negative vaginal discharge. MUSCULOSKELETAL: Negative for muscle aches, swelling, arthritis, and arthralgias. NEUROLOGIC: Negative for stroke or TIA. ENDOCRINE: Negative for thyroid problems. SKIN: Negative for rash or itching. 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 Past Anesthesia/Blood Transfusion Reactions: No Reported Reaction Additional Past Anesthesia/Blood Transfusion Reaction / Comm: CLAUSTROPHOBIA Date of Last Stent Placement:: 2017 Past Psychological History: No Psychological Hx Reported Smoking Status: Never smoker Past Alcohol Use History: None Reported Past Drug Use History: None Reported - Past Family History Mother Family Medical History: Myocardial Infarction ([place]) Additional Family Medical History / Comment(s): heart PROBLEMS Father Additional Family Medical History / Comment(s): HEART PROBLEMS Medications and Allergies Home Medications Medication Instructions Recorded Confirmed Type ALPRAZolam [Xanax] 0.25 mg PO TID PRN 03/25/14 02/02/19 History Irbesartan [Avapro] 75 mg PO DAILY 06/21/14 02/02/19 History Isosorbide Mononitrate [Isosorbide 30 mg PO DAILY 06/19/15 02/02/19 History Mononitrate ER] Spironolactone [Aldactone] 12.5 mg PO DAILY 07/05/17 02/02/19 History Atorvastatin Calcium [Lipitor] 80 mg PO HS 02/20/18 02/02/19 History Clopidogrel [Plavix] 75 mg PO DAILY #30 tab 02/22/18 02/02/19 Rx Nitroglycerin Sl Tabs [Nitrostat] 0.4 mg SUBLINGUAL Q5M PRN #25 tab 02/22/18 02/02/19 Rx Amiodarone [Cordarone] 100 mg PO DAILY tab 06/05/18 02/02/19 Rx Metoprolol Succinate [Toprol XL] 25 mg PO DAILY 02/02/19 02/02/19 History Ranolazine [Ranexa] 500 mg PO BID 02/02/19 02/02/19 History Warfarin Sodium 3 mg PO DAILY 02/02/19 02/02/19 History Allergies Allergy/AdvReac Type Severity Reaction Status Date / Time No Known Allergies Allergy Verified 02/02/19 08:40 Physical Exam Vitals: Vital Signs Temp Pulse Pulse Resp BP BP Pulse Ox 02/02/19 11:43 97.3 F L 79 18 123/68 91 L 02/02/19 08:00 98.2 F 81 16 122/82 96 02/02/19 04:38 98.0 F 72 18 110/68 96 02/02/19 04:18 98.1 F 75 18 107/73 93 L 02/02/19 04:15 73 16 110/68 91 L 02/02/19 04:00 73 16 124/71 91 L 02/02/19 03:45 75 15 124/71 97 02/02/19 03:40 75 16 124/71 96 02/02/19 03:30 75 16 136/81 96 02/02/19 03:20 75 18 136/81 02/02/19 03:12 79 23 136/81 95 02/02/19 02:51 98.3 F 78 18 136/81 97 Intake and Output 02/01/19 02/02/19 02/02/19 22:59 06:59 14:59 Output Total 1200 Balance -1200 Output: Urine 1200 Other: Weight 62.1 kg General appearance: The patient is alert, oriented, in no acute distress. HET: Head is normocephalic and atraumatic. Pupils are equal and reactive. Oropharynx is clear without lesions. Neck: Supple without lymphadenopathy. Trachea midline. Heart: S1 S2. Regular rate and rhythm. Lungs: No crackles or wheezes are heard. Abdomen: Soft, nontender, nondistended with bowel sounds. No peritoneal signs. No palpable organomegaly or masses. Extremities: Normal skin color and turgor. No cyanosis, rash, ulceration, clubbing, or edema. Radial and pedal pulses are 2/4 bilaterally. Neurological: No focal deficits. Strength and sensation are grossly intact. Results CBC & Chem 7: 02/02/19 02:57 02/02/19 02:57 Labs: Abnormal Lab Results - Last 24 Hours (Table) 02/02/19 02/02/19 02/02/19 Range/Units 02:57 02:57 02:57 Hgb 11.3 L (11.4-16.0) gm/dL RDW 16.1 H (11.5-15.5) % PT 31.4 H (9.0-12.0) sec INR 3.3 H (<1.2) Sodium 136 L (137-145) mmol/L BUN 29 H (7-17) mg/dL Creatinine 1.50 H (0.52-1.04) mg/dL Glucose 143 H (74-99) mg/dL Magnesium 2.6 H (1.6-2.3) mg/dL AST 188 H (14-36) U/L ALT 186 H (9-52) U/L Alkaline Phosphatase 367 H (38-126) U/L US - abdomen: report reviewed (Dr. Bedolla) Assessment and Plan (1) Transaminitis Narrative/Plan: 78-year-old female with a history of calculus cholecystectomy arrhythmia CAD CABG remote and recent DVT maintained on Plavix Coumadin admitted with chest burning pain GERD type symptoms with recent EGD in August 2018 in [place] with unremarkable findings. Biochemically evidence of transaminitis etiology is unclear possible medication related, statin and Cordarone have been discontinued. Ultrasound abdomen reported a dilated common bile duct 1.2 cm with no obvious focal lesions or defect within the liver or pancreas with an underlying history of calculus cholecystitis, underlying choledocholithiasis underlying biliary stricture disease cannot be excluded other possibilities to consider is underlying chronic liver disease. Current Visit: Yes Status: Acute Code(s): R74.0 - NONSPEC ELEV OF LEVELS OF TRANSAMNS & LACTIC ACID DEHYDRGNSE SNOMED Code(s): 418633910 (2) GERD (gastroesophageal reflux disease) Current Visit: Yes Status: Acute Code(s): K21.9 - GASTRO-ESOPHAGEAL REFLUX DISEASE WITHOUT ESOPHAGITIS SNOMED Code(s): 864341357 (3) DVT (deep venous thrombosis) Current Visit: Yes Status: Acute Code(s): I82.409 - ACUTE EMBOLISM AND THOMBOS UNSP DEEP VN UNSP LOWER EXTREMITY SNOMED Code(s): 231987009 (4) Atrial fibrillation Current Visit: Yes Status: Acute Code(s): I48.91 - UNSPECIFIED ATRIAL FIBRILLATION SNOMED Code(s): 28411012 (5) Warfarin-induced coagulopathy Current Visit: Yes Status: Acute Code(s): D68.32 - HEMORRHAGIC DISORD D/T EXTRINSIC CIRCULATING ANTICOAGULANTS; T45.515A - ADVERSE EFFECT OF ANTIC OAGULANTS, INITIAL ENCOUNTER SNOMED Code(s): 65049248 Plan: 1. Avoid hepatotoxic medications. Daily CMP. Hepatitis panel. MRCP. Protonix 40 mg daily. If transaminases do not improve we'll proceed with serologic workup for chronic liver disease. Statin and Cordarone have been discontinued. Thank you for this kind referral and the opportunity to participate in the care of your patient. This consultation was discussed with Dr. Bedolla. The impression and plan of care have been directed as dictated.
[2019-02-02] MEDS ORDERED: FAMOTIDINE 20 MG/2 ML VIAL IV SCH (12:30)
[2019-02-02] MEDS: FUROSEMIDE 10 MG/ML 4 ML VIAL IV SCH ×2 (14:36→21:55)
--- NOTE | 2019-02-02 14:52 | P.HPIM ---
History of Present Illness His is a pleasant 78-year-old female was transferred from outside hospital for possibly of plugged can start failure. Patient is a complaint of chest pain mostly in the epigastric area burning sensation appears to be gases visual re flux disease for which patient was started on Protonix patient used to take Protonix in the past because of her chronic kidney disease this was discontinued. Patient does have history of atrial fibrillation patient is presently rate controlled sinus rhythm on anti-correlation with Coumadin target ranges 2-3 patient is presently 3.3 take 3 mg of Coumadin at home. Patient is also found to have elevated liver enzymes patient does have crackles on lung lung exam there is no evidence of pneumonia patient doesn't have any fevers patient doesn't have any leukocytosis no cough. Patient baseline creatinine is around 0.8 and now is around 1.5. Patient does have elevated BNP of 4400 her previous BNP 620. Considering and related liver enzymes AST and ALT which are more than 3 times normal statin and the amiodarone were held by cardiology. Patient is answering at 91% on room air patient had ultrasound of the abdomen patient had a cholecystectomy in the past but does have a dilated common bile duct because of which we're obtaining an MRCP. Total bilirubin is 2.6 Review of Systems REVIEW OF SYSTEMS: CONSTITUTIONAL: No fever, no malaise, no fatigue. HEENT: No recent visual problems or hearing problems. Denied any sore throat. CARDIOVASCULAR: No orthopnea, PND, no palpitations, no syncope. PULMONARY: No shortness of breath, no cough, no hemoptysis. GASTROINTESTINAL: No diarrhea, no nausea, no vomiting, no abdominal pain. NEUROLOGICAL: No headaches, no weakness, no numbness. HEMATOLOGICAL: Denies any bleeding or petechiae. GENITOURINARY: Denies any burning micturition, frequency, or urgency. MUSCULOSKELETAL/RHEUMATOLOGICAL: Denies any joint pain, swelling, or any muscle pain. ENDOCRINE: Denies any polyuria or polydipsia. The rest of the 14-point review of systems is negative. 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 Past Anesthesia/Blood Transfusion Reactions: No Reported Reaction Additional Past Anesthesia/Blood Transfusion Reaction / Comment(s): CLAUSTROPHOBIA Date of Last Stent Placement:: 2017 Past Psychological History: No Psychological Hx Reported Smoking Status: Never smoker Past Alcohol Use History: None Reported Past Drug Use History: None Reported - Past Family History Mother Family Medical History: Myocardial Infarction ([place]) Additional Family Medical History / Comment(s): heart PROBLEMS Father Additional Family Medical History / Comment(s): HEART PROBLEMS Medications and Allergies Home Medications Medication Instructions Recorded Confirmed Type ALPRAZolam [Xanax] 0.25 mg PO TID PRN 03/25/14 02/02/19 History Irbesartan [Avapro] 75 mg PO DAILY 06/21/14 02/02/19 History Isosorbide Mononitrate [Isosorbide 30 mg PO DAILY 06/19/15 02/02/19 History Mononitrate ER] Spironolactone [Aldactone] 12.5 mg PO DAILY 07/05/17 02/02/19 History Atorvastatin Calcium [Lipitor] 80 mg PO HS 02/20/18 02/02/19 History Clopidogrel [Plavix] 75 mg PO DAILY #30 tab 02/22/18 02/02/19 Rx Nitroglycerin Sl Tabs [Nitrostat] 0.4 mg SUBLINGUAL Q5M PRN #25 tab 02/22/18 02/02/19 Rx Amiodarone [Cordarone] 100 mg PO DAILY tab 06/05/18 02/02/19 Rx Metoprolol Succinate [Toprol XL] 25 mg PO DAILY 02/02/19 02/02/19 History Ranolazine [Ranexa] 500 mg PO BID 02/02/19 02/02/19 History Warfarin Sodium 3 mg PO DAILY 02/02/19 02/02/19 History Allergies Allergy/AdvReac Type Severity Reaction Status Date / Time No Known Allergies Allergy Verified 02/02/19 08:40 Physical Exam Vitals: Vital Signs Temp Pulse Pulse Resp BP BP Pulse Ox 02/02/19 11:43 97.3 F L 79 18 123/68 91 L 02/02/19 08:00 98.2 F 81 16 122/82 96 02/02/19 04:38 98.0 F 72 18 110/68 96 02/02/19 04:18 98.1 F 75 18 107/73 93 L 02/02/19 04:15 73 16 110/68 91 L 02/02/19 04:00 73 16 124/71 91 L 02/02/19 03:45 75 15 124/71 97 02/02/19 03:40 75 16 124/71 96 02/02/19 03:30 75 16 136/81 96 02/02/19 03:20 75 18 136/81 02/02/19 03:12 79 23 136/81 95 02/02/19 02:51 98.3 F 78 18 136/81 97 Intake and Output 02/01/19 02/02/19 02/02/19 22:59 06:59 14:59 Intake Total 360 Output Total 1200 800 Balance -1200 -440 Intake: Oral 360 Output: Urine 1200 800 Uretheral (Rincon) 400 Other: Weight 62.1 kg PHYSICAL EXAMINATION: GENERAL: The patient is alert and oriented x3, not in any acute distress. Well developed, well nourished. HEENT: Pupils are round and equally reacting to light. EOMI. No scleral icterus. No conjunctival pallor. Normocephalic, atraumatic. No pharyngeal erythema. No thyromegaly. CARDIOVASCULAR: S1 and S2 present. No murmurs, rubs, or gallops. PULMONARY: Bibasilar crackles on exam no wheezing was appreciated fairly good air entry into bilateral lung gonsalez. ABDOMEN: Soft, nontender, nondistended, normoactive bowel sounds. No palpable organomegaly. MUSCULOSKELETAL: No joint swelling or deformity. EXTREMITIES: No cyanosis, clubbing, or pedal edema. NEUROLOGICAL: Gross neurological examination did not reveal any focal deficits. SKIN: No rashes. Results CBC & Chem 7: 02/02/19 02:57 02/02/19 02:57 Labs: Abnormal Lab Results - Last 24 Hours (Table) 08/02/19 08/02/19 08/02/19 Range/Units 02:57 02:57 02:57 Hgb 11.3 L (11.4-16.0) gm/dL RDW 16.1 H (11.5-15.5) % PT 31.4 H (9.0-12.0) sec INR 3.3 H (<1.2) Sodium 136 L (137-145) mmol/L BUN 29 H (7-17) mg/dL Creatinine 1.50 H (0.52-1.04) mg/dL Glucose 143 H (74-99) mg/dL Magnesium 2.6 H (1.6-2.3) mg/dL AST 188 H (14-36) U/L ALT 186 H (9-52) U/L Alkaline Phosphatase 367 H (38-126) U/L Thrombosis Risk Factor Assmnt - Choose All That Apply Each Risk Factor Represents 3 Points: Age 75 years or older, History of DVT/PE Other congenital or acquired thrombophilia - If yes, enter type in comment: No Thrombosis Risk Factor Assessment Total Risk Factor Score: 6 Thrombosis Risk Factor Assessment Level: High Risk Assessment and Plan Plan: -Chest pain, epigastric abdominal pain and atypical noncardiac appears to be secondary to peptic ulcer disease or gastritis patient will be started on Protonix. -Elevated liver enzymes possible etiologies being medication use of from a as statin and amiodarone which was held because of dilated common bile duct patient will undergo MRCP to see if there is an obstructive etiology the discontinued bit into her elevated liver enzymes other possibility being hepatic congestion from congestive heart failure next and-can start failure chronic diastolic dysfunction with mild acute exacerbation patient will be started on Lasix -Acute renal failure prerenal azotemia probably secondary to congestive heart failure expected to improve with Lasix -Atrial fibrillation presently rate controlled patient her DVT in the past patient is on Coumadin, we'll if patient will be continued on 2.5 mg of Coumadin and repeat INR tomorrow -Gases reflux disease -Hypertension
[2019-02-02] MEDS ORDERED: ATORVASTATIN 80 MG TAB PO SCH (21:00)
[2019-02-02] MEDS: RANOLAZINE 500 MG TAB.ER.12H PO SCH (21:56)
[2019-02-03 06:32] LABS: Anisocytosis Slight; HCT 36.7 % (34.0-46.0); HGB 11.6 gm/dL (11.4-16.0); MCH 27.7 pg (25.0-35.0); MCHC 31.5 g/dL (31.0-37.0); Mean Platelet Volume 6.7; Platelet Count 218 k/uL (150-450); RBC 4.17 m/uL (3.80-5.40); RDW 16.2 % (11.5-15.5); WBC 5.9 k/uL (3.8-10.6)
[2019-02-03 06:50] LABS: Albumin 4.1 g/dL (3.5-5.0); Calcium 8.7 mg/dL (8.4-10.2); Total Bilirubin 0.9 mg/dL (0.2-1.3)
[2019-02-03 07:03] LABS: Potassium 4.8 mmol/L (3.5-5.1)
[2019-02-03] MEDS: FUROSEMIDE 10 MG/ML 4 ML VIAL IV SCH ×2 (08:44→20:14)
[2019-02-03] MEDS: ALPRAZolam 0.25 MG TAB PO PRN ×2 (10:30)
--- NOTE | 2019-02-03 11:34 | P.PN ---
Subjective Progress Note Date: 02/03/19 Principal diagnosis: Paroxysmal atrial fibrillation, CHF exacerbation The patient is an 78-year-old female who is currently admitted for CHF exacerbation, who also has a history of symptomatic paroxysmal atrial fibrillation and CAD status post CABG. She is doing relatively well this morning sitting comfortably in bed. She denies any chest discomfort, palpitations, dyspnea, dizziness, or vertigo. She had been having epigastric discomfort for several days which did not resolve with GI medications. Today, she is quite concerned about her admission and having to stop her amiodarone in regards to her elevated liver enzymes. GENERAL: Well-appearing, well-nourished and in no acute distress. NECK: Elevated JVP. No thyroidomegaly. LUNGS: Breath sounds clear to auscultation bilaterally. Respiration equal and unlabored. No wheezes, rales or rhonchi. HEART: Regular rate and rhythm . Systolic murmur. No rubs or gallops. S1 and S2 heard. EXTREMITIES: Normal range of motion, no edema. No clubbing or cyanosis. Peripheral pulses intact and strong. Echocardiogram showed LV function at 50-55% with moderate to severe mitral regurgitation, severe tricuspid regurgitation, and severe pulmonary hypertension Labs: Sodium 139, potassium 4.8, BUN 35, creatinine 1.36, AST 100, ALT 162, ALP 294, Assessment: #1 chest discomfort, resolved #2 CHF exacerbation, diastolic heart failure, BNP greater than 4000 #3 mitral regurgitation, moderate to severe #4 pulmonary hypertension with tricuspid regurgitation #5 coronary artery disease, status post CABG #6 paroxysmal atrial fibrillation, maintaining sinus rhythm #7 elevated liver enzymes, improving Plan: Continue current medication regimen including furosemide 40 mg twice daily. Continue to monitor for tachyarrhythmias. Consider further workup regarding ed vular heart disease. Objective - Vital Signs Vital signs: Vital Signs Temp 98.3 F 02/03/19 08:47 Pulse 80 02/03/19 08:47 Resp 16 02/03/19 08:47 BP 95/70 02/03/19 08:47 Pulse Ox 98 02/03/19 08:47 Intake & Output 02/02/19 02/03/19 02/03/19 18:59 06:59 18:59 Intake Total 600 Output Total 800 Balance -200 Weight 62.1 kg 60.9 kg Intake: Oral 600 Output: Urine 800 Uretheral ([place]) 400 Other: Voiding Method Toilet Toilet # Voids 3 2 - Labs CBC & Chem 7: 02/03/19 05:45 02/03/19 05:45 Labs: Abnormal Lab Results - Last 24 Hours (Table) 02/03/19 02/03/19 Range/Units 05:45 05:45 RDW 16.2 H (11.5-15.5) % BUN 35 H (7-17) mg/dL Creatinine 1.36 H (0.52-1.04) mg/dL AST 100 H (14-36) U/L ALT 162 H (9-52) U/L Alkaline Phosphatase 294 H (38-126) U/L
[2019-02-03] MEDS: SPIRONOLACTONE 25 MG TAB PO SCH (12:25)
[2019-02-03] MEDS: PANTOPRAZOLE 40 MG TABLET PO SCH (12:25)
[2019-02-03] MEDS: RANOLAZINE 500 MG TAB.ER.12H PO SCH ×2 (12:26→20:03)
[2019-02-03] MEDS: ISOSORBIDE MONONITRATE ER 30 MG TAB.ER.24H PO SCH (12:26)
[2019-02-03] MEDS: METOPROLOL SUCCINATE (ER) 25 MG TAB.ER.24H PO SCH (12:26)
[2019-02-03] MEDS: CLOPIDOGREL 75 MG TAB PO SCH (12:26)
--- NOTE | 2019-02-03 13:10 | P.PN ---
Subjective 78-year-old female came in with epigastric abdominal burning sensation secondary to gastritis or peptic ulcer disease. Patient is also in heart failure and hepatic congestion leading to elevated liver enzymes hepatic congestion is most probably from pulmonary hypertension, heart failure and tricuspid regurgitation. Patient's serum creatinine improved from 1.5-1.3 with IV Lasix which is being continued patient still has crackles on exam patient is undergoing MRCP because of dilated bile ducts on ultrasound. Her elevated liver enzymes are most probably secondary to hepatic congestion. Patient is feeling much better. Constitutional: Denied any fatigue denied any fever. Cardio vascular: denied any chest pain, palpitations Gastrointestinal denied any nausea vomiting Pulmonary: Denied any shortness of breath cough Neurologic denied any new focal deficits All inpatient medications were reviewed and appropriate changes in these medications as dictated in the interval history and assessment and plan. Objective - Vital Signs Vital signs: Vital Signs Temp 98.4 F 02/03/19 12:00 Pulse 83 02/03/19 12:00 Resp 16 02/03/19 12:00 BP 112/69 02/03/19 12:00 Pulse Ox 99 02/03/19 12:00 Intake & Output 02/02/19 02/03/19 02/03/19 18:59 06:59 18:59 Intake Total 600 Output Total 800 Balance -200 Weight 62.1 kg 60.9 kg Intake: Oral 600 Output: Urine 800 Uretheral ([place]) 400 Other: Voiding Method Toilet Toilet # Voids 3 2 - Exam PHYSICAL EXAMINATION: GENERAL: The patient is alert and oriented x3, not in any acute distress. Well developed, well nourished. HEENT: Pupils are round and equally reacting to light. EOMI. No scleral icterus. No conjunctival pallor. Normocephalic, atraumatic. No pharyngeal erythema. No thyromegaly. CARDIOVASCULAR: S1 and S2 present. No murmurs, rubs, or gallops. PULMONARY: Bibasilar crackles on exam no wheezing was appreciated fairly good air entry into bilateral lung gonsalez. ABDOMEN: Soft, nontender, nondistended, normoactive bowel sounds. No palpable organomegaly. MUSCULOSKELETAL: No joint swelling or deformity. EXTREMITIES: No cyanosis, clubbing, or pedal edema. NEUROLOGICAL: Gross neurological examination did not reveal any focal deficits. SKIN: No rashes. - Labs CBC & Chem 7: 02/03/19 05:45 02/03/19 05:45 Labs: Abnormal Lab Results - Last 24 Hours (Table) 02/03/19 02/03/19 Range/Units 05:45 05:45 RDW 16.2 H (11.5-15.5) % BUN 35 H (7-17) mg/dL Creatinine 1.36 H (0.52-1.04) mg/dL AST 100 H (14-36) U/L ALT 162 H (9-52) U/L Alkaline Phosphatase 294 H (38-126) U/L Assessment and Plan Plan: -Chest pain, epigastric abdominal pain and atypical noncardiac appears to be secondary to peptic ulcer disease or gastritis patient will be on Protonix. -Elevated liver enzymes most probably secondary to diabetic condition improving will repeat liver enzymes tomorrow. Patient underwent MRCP secondary to dilated bile ducts on the ultrasound of the gallbladder -Acute renal failure prerenal azotemia probably secondary to congestive heart failure improving with Lasix -Atrial fibrillation presently rate controlled patient her DVT in the past lyn boss is on Coumadin, we'll if patient will be continued on 2.5 mg of Coumadin, I do not have any other available from today INR will be repeated for tomorrow -Gases reflux disease -Hypertension
--- NOTE | 2019-02-03 14:10 | PN ---
PROGRESS NOTE DATE OF VISIT: 02/03/2019 The patient is an 78-year-old pleasant white female admitted to the hospital with chest pain and heartburn on and off for the last few days duration. At the time of admission to the hospital she was noted to have elevated serum transaminases and also the abdomen showed a dilated common bile duct measuring 1.2 cm in size. She is status post cholecystectomy for symptomatic gallstones about 40 years ago. This morning she is feeling better. No abdominal pain. No chest pain. She is scheduled for an MRCP that is scheduled for 12 noon today. PHYSICAL EXAMINATION: She appears comfortable. No apparent distress. VITAL SIGNS: Stable. Blood pressure is 140/70, pulse is 78, temperature 97.8. HEENT examination unremarkable. Conjunctivae are pink. Sclerae anicteric. Oral cavity, no lesions. NECK: No JVD or lymph node enlargement. CHEST: Clear to auscultation. HEART: Regular rate and rhythm. ABDOMEN: Soft. Bowel sounds are positive. No organomegaly. EXTREMITIES: No pedal edema. SKIN: No rashes. NEUROLOGIC: Alert and oriented x3. No focal deficits. LABS: From today AST is down to 100, ALT is down to 162, alkaline phosphatase 294, bilirubin 0.9. IMPRESSION: 1. This is a lady who presents to the hospital with chest pain for the last 2 days duration was noted to have elevated serum transaminases which are gradually improving. Ultrasound showed dilated common bile duct. At this time, possibility of choledocholithiasis cannot be excluded. She is status post gallbladder surgery about 40 years ago for symptomatic gallstones. Presently, her symptoms have significantly improved. 2. Atrial fibrillation on Coumadin. RECOMMENDATIONS: 1. Await MRCP results. 2. Repeat serum transaminases in the morning. 3. If the MRCP is negative, the patient can be discharged home with outpatient followup in 1-2 weeks in [place]. Thank you for this consultation. MMODL / IJN: [id number] /
--- NOTE | 2019-02-03 14:58 | MR ---
EXAMINATION TYPE: MR MRCP DATE OF EXAM: 02/03/2019 COMPARISON: MRI kidney April 16, 2013. Limited abdominal ultrasound February 02, 2019 HISTORY: elevated liver enzymes dilated CBD Standard multiplanar, multisequence MRI departmental protocol Multiplanar, multisequence images of the abdomen focusing on biliary system were acquired. Thin and t hick slice MRCP imaging is performed. FINDINGS: Liver/gallbladder/pancreas/biliary system: Gallbladder is once again surgically absent. There is perh aps mild central prominence of the extrahepatic biliary system there are chas hepatis measuring 10 t o 11 mm no significant only changed from 2013 MRI. Common bile duct measures 7 mm near duodenal inser tion. No significant new intrahepatic biliary dilatation is seen. No obstructing calculus identified. Liver remains stable and normal in size. Pancreatic duct is redemonstrated measuring upper limits of normal in size with moderate diffuse pancreatic gland atrophy. No significant change from 2013 MRI. No suspicious liver masses. Other: There is demonstration of artifact from sternotomy wires in the anterior lower chest. Spleen a nd both adrenal glands remain normal in size. Some cortical thinning in both kidneys is seen. No aneu rysmal change of the aorta. No suspicious bowel dilatation. No abdominal ascites. New small right ple ural effusion. Underlying marked levoconvex scoliosis centered upper thoracic spine is redemonstrated . IMPRESSION: No significant change from 2013 MRI, perhaps minimal stable biliary dilatation without ob structing stone or stricture identified in patient with known cholecystectomy.
[2019-02-03 17:47] LABS: Hepatitis A Antibody IgM Non-Reactive (Non-Reactive); Hepatitis B Core IgM Non-Reactive (Non-Reactive); Hepatitis B Surface Antigen Non-Reactive (Non-Reactive); Hepatitis C IgG Antibody Non-Reactive (Non-Reactive)
[2019-02-03] MEDS ORDERED: WARFARIN 2.5 MG TAB PO SCH (18:00)
[2019-02-03] MEDS ORDERED: WARFARIN 3 MG TAB PO SCH (18:00)
[2019-02-03] MEDS: SODIUM CHLORIDE 0.9% 250 ML IV SCH ×3 (21:34→22:34)
[2019-02-03] MEDS ORDERED: SODIUM CHLORIDE 0.9% 500 ML 250 ML IV ONE (22:32)
[2019-02-03] MEDS ORDERED: IOPAMIDOL CONTRAST (ORAL USE) VIAL PO PRN (23:10)
--- NOTE | 2019-02-04 00:21 | CT ---
EXAM: CT Abdomen and Pelvis With Intravenous Contrast CLINICAL HISTORY: ITS.REASON CT Reason: abdominal pain TECHNIQUE: Axial computed tomography images of the abdomen and pelvis with intravenous contrast during the arterial phase of enhancement. CTDI is 6. 6 mGy and DLP is 1054.1 mGy-cm. This CT exam was performed using one or more of the following dose reduction techniques: automated exposure control, adjustment of the mA and/or kV according to patient size, and/or use of iterative reconstruction technique. Coronal and sagittal reformatted images were created and reviewed. COMPARISON: No relevant prior studies available. FINDINGS: VASCULATURE: Aorta: Diffuse atherosclerotic changes of the aorta with prominent calcified peripheral plaque. There is infrarenal aortic ectasia with a short segment dissection, reference image [id number], with maximum caliber of approximately 2.5 cm transverse. The dissection length is approximately 1.4 cm. Celiac trunk and mesenteric arteries: Mild plaque at the celiac trunk origin. Diffuse atherosclerotic plaque involving the hepatic and splenic arteries. No occlusion. Renal arteries: There is moderate plaque at the origins of the bilateral renal arteries. No occlusion. Iliac arteries: No acute findings. No occlusion or significant stenosis. Other arteries: Superior mesenteric artery demonstrates mild plaque at the proximal aspect area Lung bases: See below. Pleural space: Bilateral small pleural effusions. Multi lobar airspace opacities in the lower lungs may be related to edema though nonspecific. Heart: Cardiomegaly. Multivessel coronary artery calcifications and sternotomy changes. ABDOMEN: Liver: Moderate periportal edema. Mild heterogeneity of the liver parenchyma. Mild hypodense lesion along the anterior aspect of the left hepatic lobe measuring 10 mm length. Gallbladder and bile ducts: Cholecystectomy. No ductal dilation. Pancreas: Unremarkable. No ductal dilation. No mass. Spleen: See above. Adrenals: Unremarkable. No mass. Kidneys and ureters: Bilateral renal cortical thinning/scarring. No hydronephrosis. Stomach and bowel: Extensive colonic diverticulosis. No current evidence to suggest acute diverticulitis. Normal small bowel caliber. No obstruction. PELVIS: Appendix: No findings to suggest acute appendicitis. Bladder: Urinary bladder is nondistended, precluding accurate characterization. Reproductive: Hysterectomy. ABDOMEN and PELVIS: Intraperitoneal space: Unremarkable. No significant fluid collection. No free air. Bones/joints: Degenerative changes at the bilateral hip joints and pubic symphysis. Symmetric sacroiliac degenerative changes. Severe S- shaped scoliosis and multilevel spondylosis. No acute fracture. No dislocation. Soft tissues: Small fatty umbilical hernia. Lymph nodes: Unremarkable. No enlarged lymph nodes. IMPRESSION: 1. Mild infrarenal aortic ectasia with a short segment dissection just caudal to the renal artery origins, maximum aortic caliber approximately 2.5 cm.. 2. Cardiomegaly with multi lobar airspace groundglass attenuation and pleural effusions. Pulmonary edema is likely. 3. Hypodense lesion within the anterior aspect left hepatic lobe with indeterminate density. Nonemergent follow-up with hepatic protocol CT or MRI could further characterize. 4. Additional findings as above. <MYCVCSECTION> [employer] 02/04/19 00:24 Verify Receipt Verified receipt with RN Janell on 02/04 00:23 (-04:00)
[2019-02-04 01:02] LABS: Anisocytosis Slight; HCT 33.8 % (34.0-46.0); HGB 10.8 gm/dL (11.4-16.0); Hypochromasia Slight; MCH 28.3 pg (25.0-35.0); MCV 88.4 fL (80.0-100.0); Mean Platelet Volume 6.7; Platelet Count 199 k/uL (150-450); RBC 3.82 m/uL (3.80-5.40); WBC 7.4 k/uL (3.8-10.6)
[2019-02-04 01:10] LABS: Glucose,Whole Blood 166 mg/dL (75-99)
[2019-02-04 01:13] LABS: Calcium 8.4 mg/dL (8.4-10.2); Potassium 4.4 mmol/L (3.5-5.1)
[2019-02-04] MEDS ORDERED: NALOXONE 0.4 MG/ML 1 ML VIAL IV PRN (01:38)
[2019-02-04] MEDS: SODIUM CHLORIDE 0.9% 1,000 ML IV SCH ×3 (03:03→19:46)
[2019-02-04 04:59] LABS: Basophils % (A) 0 %; Eosinophils # (A) 0.1 k/uL (0-0.7); Eosinophils % (A) 1 %; HCT 34.2 % (34.0-46.0); HGB 10.9 gm/dL (11.4-16.0); Hypochromasia Slight; Lymphocytes % (A) 15 %; MCH 27.8 pg (25.0-35.0); MCHC 31.9 g/dL (31.0-37.0); MCV 87.1 fL (80.0-100.0); Mean Platelet Volume 6.8; Monocytes # (A) 0.4 k/uL (0-1.0); Monocytes % (A) 6 %; Neutrophils # (A) 5.4 k/uL (1.3-7.7); Neutrophils % (A) 77 %; Platelet Count 195 k/uL (150-450); RBC 3.92 m/uL (3.80-5.40); WBC 7.1 k/uL (3.8-10.6)
[2019-02-04] MEDS: METOPROLOL SUCCINATE (ER) 25 MG TAB.ER.24H PO SCH (05:09)
[2019-02-04] MEDS: FUROSEMIDE 10 MG/ML 4 ML VIAL IV SCH (05:09)
[2019-02-04 05:20] LABS: Albumin 3.6 g/dL (3.5-5.0); Calcium 8.8 mg/dL (8.4-10.2); Potassium 4.4 mmol/L (3.5-5.1); Total Bilirubin 0.5 mg/dL (0.2-1.3); Total Protein 6.5 g/dL (6.3-8.2)
[2019-02-04 05:40] LABS: Appearance,Urine Cloudy (Clear); Bilirubin,Urine Negative (Negative); Blood,Urine Large (Negative); Color,Urine Yellow; Glucose,Urine (UA) Negative (Negative); Ketones,Urine Negative (Negative); Leukocyte Esterase,Urine Negative (Negative); Mucus,Urine Rare /hpf; Nitrite,Urine Negative (Negative); PH, Urine 5.5 (5.0-8.0); Protein,Urine Trace (Negative); RBC,Urine 24 /hpf (0-5); Renal Epithelial Cells,Urine 10 /hpf (0); Squamous Epithelial Cell,Urine <1 /hpf (0-4); Urobilinogen,Urine <2.0 mg/dL (<2.0); WBC,Urine 2 /hpf (0-5)
[2019-02-04 05:41] LABS: Specific Gravity,Urine >1.050 (1.001-1.035)
--- NOTE | 2019-02-04 06:21 | XR ---
EXAMINATION TYPE: XR chest 1V DATE OF EXAM: 02/04/2019 HISTORY: exertional dyspnea. REFERENCE: Previous study dated 02/02/2019/. FINDINGS: There has been a midline sternotomy. There is a moderate levoscoliosis. There is restricted by lateral airspace disease. There are small bilateral effusions. The heart is en larged. IMPRESSION: FINDINGS CONSISTENT WITH WORSENING HEART FAILURE. SUPERIMPOSED PNEUMONIA WOULD BE DIFFICULT TO EXCLUD E.
[2019-02-04] MEDS: PANTOPRAZOLE 40 MG TABLET PO SCH (07:02)
[2019-02-04 07:19] LABS: INR 1.7 (<1.2); Prothrombin Time 16.5 sec (9.0-12.0)
[2019-02-04] MEDS ORDERED: AMIODARONE 100 MG TAB PO SCH (09:00)
[2019-02-04] MEDS: CLOPIDOGREL 75 MG TAB PO SCH (09:21)
[2019-02-04] MEDS: SPIRONOLACTONE 25 MG TAB PO SCH (09:21)
[2019-02-04] MEDS: RANOLAZINE 500 MG TAB.ER.12H PO SCH (09:50)
--- NOTE | 2019-02-04 10:02 | P.GSCN ---
History of Present Illness Consult date: 02/04/19 Reason for Consult: Infrarenal Aortic dissection Requesting physician: Raleigh Cuenca History of present illness: 78-year-old female originally presented to the hospital as a transfer secondary to epigastric and abdominal pain. She does have a significant history of coronary artery disease, GERD with intermittent substernal chest pain and epigastric pain in the past. She was admitted to the hospital for these sympt oms to rule out ulcers versus cardiac etiology and therefore a cardiology consultation as well as gastroenterology consultation was performed. Upon her workup she has had no significant findings and last night was having bouts of hypotension with increasing pain at her substernal region. She states she has had this pain before but this was worse and therefore the physician obtained a CTA of the abdomen and pelvis which demonstrated a small dissection and ectasia of the infrarenal aorta. Patient states she is never been told that she has a dissection previously but has had CAT scans in [place] to workup her hiatal hernia. She denies any pain that radiates into her back, down her legs or in her feet consistent of arterial occlusive disease or embolic disease. Currently she states her abdominal pain is improved. She did have issues with urinary output overnight and therefore was given boluses and fluids which improved her blood pressure which now it is around 140s. She has had a history of hypertension in the past which has been difficult to control per her family. Currently she denies any fevers, chills, or shortness of breath. 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 Past Anesthesia/Blood Transfusion Reactions: No Reported Reaction Additional Past Anesthesia/Blood Transfusion Reaction / Comm: CLAUSTROPHOBIA Date of Last Stent Placement:: 2017 Past Psychological History: No Psychological Hx Reported Smoking Status: Never smoker Past Alcohol Use History: None Reported Past Drug Use History: None Reported - Past Family History Mother Family Medical History: Myocardial Infarction (PA) Additional Family Medical History / Comment(s): heart PROBLEMS Father Additional Family Medical History / Comment(s): HEART PROBLEMS Medications and Allergies Home Medications Medication Instructions Recorded Confirmed Type ALPRAZolam [Xanax] 0.25 mg PO TID PRN 03/25/14 02/02/19 History Irbesartan [Avapro] 75 mg PO DAILY 06/21/14 02/02/19 History Isosorbide Mononitrate [Isosorbide 30 mg PO DAILY 06/19/15 02/02/19 History Mononitrate ER] Spironolactone [Aldactone] 12.5 mg PO DAILY 07/05/17 02/02/19 History Atorvastatin Calcium [Lipitor] 80 mg PO HS 02/20/18 02/02/19 History Clopidogrel [Plavix] 75 mg PO DAILY #30 tab 02/22/18 02/02/19 Rx Nitroglycerin Sl Tabs [Nitrostat] 0.4 mg SUBLINGUAL Q5M PRN #25 tab 02/22/18 02/02/19 Rx Amiodarone [Cordarone] 100 mg PO DAILY tab 06/05/18 02/02/19 Rx Metoprolol Succinate [Toprol XL] 25 mg PO DAILY 02/02/19 02/02/19 History Ranolazine [Ranexa] 500 mg PO BID 02/02/19 02/02/19 History Warfarin Sodium 3 mg PO DAILY 02/02/19 02/02/19 History Allergies Allergy/AdvReac Type Severity Reaction Status Date / Time No Known Allergies Allergy Verified 02/02/19 08:40 Surgical - Exam Vital Signs Temp Pulse Resp BP Pulse Ox 98.3 F 78 18 136/81 97 02/02/19 02:51 02/02/19 02:51 02/02/19 02:51 02/02/19 02:51 02/02/19 02:51 palpable femoral, popliteal, DP and PT pulses bilaterally. No signs of ischemia of the lower extremities. No palpable abdominal mass - General well developed, well nourished, no distress - Eyes PERRL - ENT normal nares, normal mucosa - Neck no masses, no bruits - Respiratory normal expansion, normal respiratory effort - Abdomen Abdomen: soft, non tender, bowel sounds, no guarding, no rebound - Integumentary no rash, no growths - Neurologic normal coordination, normal sensation - Psychiatric oriented to time, oriented to person, oriented to place, speech is normal Results - Labs 02/04/19 04:32 02/04/19 04:32 Abnormal Lab Results - Last 24 Hours (Table) 02/04/19 02/04/19 02/04/19 Range/Units 00:48 00:48 00:59 Hgb 10.8 L (11.4-16.0) gm/dL Hct 33.8 L (34.0-46.0) % RDW 16.0 H (11.5-15.5) % PT (9.0-12.0) sec INR (<1.2) Carbon Dioxide 21 L (22-30) mmol/L BUN 46 H (7-17) mg/dL Creatinine 2.68 H (0.52-1.04) mg/dL Glucose 159 H (74-99) mg/dL POC Glucose (mg/dL) 166 H (75-99) mg/dL AST (14-36) U/L ALT (9-52) U/L Alkaline Phosphatase (38-126) U/L Urine Appearance (Clear) Ur Specific [place] (1.001-1.035) Urine Protein (Negative) Urine Blood (Negative) Urine RBC (0-5) /hpf Urine Mucus (None) /hpf 02/04/19 02/04/19 02/04/19 Range/Units 04:32 04:32 04:40 Hgb 10.9 L (11.4-16.0) gm/dL Hct (34.0-46.0) % RDW 16.0 H (11.5-15.5) % PT (9.0-12.0) sec INR (<1.2) Carbon Dioxide 19 L (22-30) mmol/L BUN 49 H (7-17) mg/dL Creatinine 2.61 H (0.52-1.04) mg/dL Glucose 131 H (74-99) mg/dL POC Glucose (mg/dL) (75-99) mg/dL AST 216 H (14-36) U/L ALT 275 H (9-52) U/L Alkaline Phosphatase 314 H (38-126) U/L Urine Appearance Cloudy H (Clear) Ur Specific [place] >1.050 H (1.001-1.035) Urine Protein Trace H (Negative) Urine Blood Large H (Negative) Urine RBC 24 H (0-5) /hpf Urine Mucus Rare H (None) /hpf 02/04/19 Range/Units 06:28 Hgb (11.4-16.0) gm/dL Hct (34.0-46.0) % RDW (11.5-15.5) % PT 16.5 H (9.0-12.0) sec INR 1.7 H (<1.2) Carbon Dioxide (22-30) mmol/L BUN (7-17) mg/dL Creatinine (0.52-1.04) mg/dL Glucose (74-99) mg/dL POC Glucose (mg/dL) (75-99) mg/dL AST (14-36) U/L ALT (9-52) U/L Alkaline Phosphatase (38-126) U/L Urine Appearance (Clear) Ur Specific [place] (1.001-1.035) Urine Protein (Negative) Urine Blood (Negative) Urine RBC (0-5) /hpf Urine Mucus (None) /hpf Diabetes panel 02/04/19 02/04/19 Range/Units 00:48 04:32 Sodium 137 138 (137-145) mmol/L Potassium 4.4 4.4 (3.5-5.1) mmol/L Chloride 104 104 (98-107) mmol/L Carbon Dioxide 21 L 19 L (22-30) mmol/L BUN 46 H 49 H (7-17) mg/dL Creatinine 2.68 H 2.61 H (0.52-1.04) mg/dL Glucose 159 H 131 H (74-99) mg/dL Calcium 8.4 8.8 (8.4-10.2) mg/dL AST 216 H (14-36) U/L ALT 275 H (9-52) U/L Alkaline Phosphatase 314 H (38-126) U/L Total Protein 6.5 (6.3-8.2) g/dL Albumin 3.6 (3.5-5.0) g/dL Calcium panel 02/04/19 02/04/19 Range/Units 00:48 04:32 Calcium 8.4 8.8 (8.4-10.2) mg/dL Albumin 3.6 (3.5-5.0) g/dL Pituitary panel 02/04/19 02/04/19 Range/Units 00:48 04:32 Sodium 137 138 (137-145) mmol/L Potassium 4.4 4.4 (3.5-5.1) mmol/L Chloride 104 104 (98-107) mmol/L Carbon Dioxide 21 L 19 L (22-30) mmol/L BUN 46 H 49 H (7-17) mg/dL Creatinine 2.68 H 2.61 H (0.52-1.04) mg/dL Glucose 159 H 131 H (74-99) mg/dL Calcium 8.4 8.8 (8.4-10.2) mg/dL Adrenal panel 02/04/19 02/04/19 Range/Units 00:48 04:32 Sodium 137 138 (137-145) mmol/L Potassium 4.4 4.4 (3.5-5.1) mmol/L Chloride 104 104 (98-107) mmol/L Carbon Dioxide 21 L 19 L (22-30) mmol/L BUN 46 H 49 H (7-17) mg/dL Creatinine 2.68 H 2.61 H (0.52-1.04) mg/dL Glucose 159 H 131 H (74-99) mg/dL Calcium 8.4 8.8 (8.4-10.2) mg/dL Total Bilirubin 0.5 (0.2-1.3) mg/dL AST 216 H (14-36) U/L ALT 275 H (9-52) U/L Alkaline Phosphatase 314 H (38-126) U/L Total Protein 6.5 (6.3-8.2) g/dL Albumin 3.6 (3.5-5.0) g/dL - Imaging CT scan - chest: image reviewed CT scan - pelvis: image reviewed Assessment and Plan Assessment: 1. Asymptomatic Infrarenal aortic dissection 2. Chest and epigastric abdominal pain- improving 3. Acute on chronic kidney disease 4. Congestive heart failure 5. Atrial fibrillation- rate controlled. 6. Elevated liver enzymes 7. History of peptic ulcer disease, GERD and hiatal hernia Plan: reviewed CTA- small dissection noted just distal to the renal arteries- unlikely source of patients discomfort. Due to history of similar pain and lack of dissection symptoms we will continue to monitor. Recommend blood pressure control, ideally range to be SBP 100-130 range. Will send request to [place] [facility] and hospital for reports of previous CAT scan to see if any history of dissection in the past. Patient does take coumadin for atrial fibrillation which I would recommend continuing as well as a statin if able to take. No vascular surgical intervention at this time. Will continue to follow while in the hospital and then follow up as outpatient for another CTA in 1-3 months. Thank you for allowing me to participate in your patients care. Please call if any questions.
[2019-02-04] MEDS: FAMOTIDINE 20 MG/2 ML VIAL IV SCH (10:36)
--- NOTE | 2019-02-04 10:56 | PN ---
PROGRESS NOTE DATE OF SERVICE: 02/04/2019 The patient is an 78-year-old pleasant white female admitted to the hospital because of epigastric pain and atypical chest pain. At the time of admission to the hospital, was noted to have elevated serum transaminases. Ultrasound of the abdomen did show dilated common bile duct measuring 1.2 cm in size. The serum transaminases are gradually improving, but because of the suspicion for CBD stone, she was scheduled for an MRCP yesterday that was done, which showed a dilated common bile duct, but no evidence of any filling defects. However, last night, she developed another bout of severe epigastric pain as well as substernal chest pain and became hypotensive and was transferred to the intensive care unit. She had a stat CTA of the abdomen and pelvis done that showed a small dissection of the infrarenal aorta and Dr. Uriostegui was consulted. This morning, the patient is feeling much better. She still has some vague epigastric discomfort. She does complain of severe heartburn. She stated that she had similar symptoms in August of this year while she was in [place] and had an upper endoscopy done at that time and was told has a hiatal hernia. She was treated with Protonix in the past, but developed kidney problems and was advised to stay off the medications. She denies any dysphagia. No odynophagia. PHYSICAL EXAMINATION: She appears comfortable. No apparent distress. VITAL SIGNS: Stable. Blood pressure is 103/64, pulse is 72 and afebrile. HEENT examination unremarkable. Conjunctivae pink. Sclerae anicteric. Oral cavity no lesions. NECK: No JVD or lymph node enlargement. CHEST: Clear to auscultation. HEART: Regular rate and rhythm. ABDOMEN: Soft. There is mild tenderness in the epigastric area. Bowel sounds are positive. No organomegaly. EXTREMITIES: No pedal edema. SKIN no rashes. NEUROLOGIC: Alert and oriented x3. No focal deficits. LABS: WBC 7.1, hemoglobin 10.9, platelets are 195. INR is 1.7. AST is 216, ALT is 275, alkaline phosphatase is 314, T bilirubin is 0.5. MRCP done yesterday showed mild central prominence of the extrahepatic biliary system with no significant change from the MRI done in 2013. Common bile duct measures 7 mm in size. There is no evidence of any calculus or stricture identified. No suspicious liver masses seen. Abdominal pelvic CTA done last night, mild hyperdense lesion in the anterior aspect of the left hepatic lobe measuring 10 mm in length. However, this was not visualized on the MRI of the pancreas are unremarkable. Evidence of infrarenal aortic aneurysm with small dissection. IMPRESSION: 1. Recurrent episodes of severe epigastric pain as well as atypical chest pain associated with hypertension requiring transferring to the intensive care unit last night. Abdominal CTA done last night showed evidence of small infrarenal ectatic aorta with aortic dissection and Dr. Uriostegui following the patient closely. 2. Gastroesophageal reflux disease. 3. Elevated LFTs since hospitalization which was improving yesterday but today they have worsened slightly. Hepatitis serologies for A, B, and C are negative. MRCP done yesterday did not show any evidence of biliary ductal calculus or stricture. In fact there is no significant change in dilation compared to the MRCP performed in 2013. The patient is status post gallbladder surgery 40 years ago for symptomatic gallstones. 4. Severe right-sided pulmonary hypertension/congestive heart failure. RECOMMENDATIONS: 1. Start on Pepcid 20 mg twice daily. 2. Discontinue the Protonix as she was told she had elevated creatinine because of Protonix in the past. 3. Add Carafate 1 g 4 times daily. 4. Obtain her previous upper endoscopy results from [place] that she had done about 3- 4 months ago. 5. Repeat LFTs tomorrow morning. We will follow her closely during the hospital stay. Thank you for this consultation. MMODL / IJN: [id number] /
--- NOTE | 2019-02-04 11:37 | P.CNPUL ---
History of Present Illness Consult date: 02/04/19 Requesting physician: Marjan Mcginnis Reason for consult: other (ICU management, infrarenal aortic dissection) Chief complaint: abdominal pain History of present illness: this is an 78-year-old female admitted initially to the hospital on 02/02/2019, and her initial complaint was mostly vague abdominal and chest pain.patient is known to have history of coronary artery disease, CABG, chronic atrial fibrillation maintained on amiodarone, deep vein thrombosis, maintained on warfarin, described her pain on admission as chest pain with burning sensation in the chest, and at times some vague abdominal discomfort. Patient was noted to have elevated liver enzymes, and abnormal ultrasound of the abdomen. Since admission the patient had extensive workup, she was seen by many consultants including gastroenterology.yesterday she had abdominal and pelvis CTA,, AND IT SHOWED INFRARENAL AORTIC ECTASIA WITH SHORT SEGMENT DISSECTION WITH MAXIMUM CALIBER OF APPROXIMATELY 2.5 CM AND THE DISSECTION LENGTH WAS APPROXIMATELY 1.4 CM. Considering the findings, patient was transferred to the intensive care unit, and shortly after she arrived to the ICU, patient was hypotensive, and her urine output was very poor. Patient was given fluid boluses, she developed what seems to be a picture of mild congestive heart failure, and she later responded to diuretics. She was seen by vascular surgery on consultation, and she was advised to have conservative measures, no need for any surgical intervention at this point, however he recommended close monitoring of the blood pressure, and keep it low as much as possible. In the meantime the patient denies any pulmonary symptoms, denies presently any cough, no wheezing, no shortness of breath. She does have some vague intermittent abdominal pain and chest pain. That is being evaluated by many consultants. And so far the workup is nondiagnostic. Clearly the clinical symptoms do not correlate with the workup so far. Review of Systems Constitutional: no weight loss, no fever no chills.. HEENT:no blurred vision, no sore throat, no ear aches or pains. CARDIAC: denies chest pain or palpitation, no clear-cut anginal symptoms. Her chest pain seems to be vague. And mostly GI related than cardiac related. Mos tly GERD-like symptoms. RESPIRATORY: denies cough wheezing shortness of breath, no hemoptysis GI: as noted in HPI. : denied dysuria frequency or hematuria. Urgency. MUSCULOSKELETAL: no arthralgia, no aches or pains NEUROLOGIC: no headache blurred vision dizziness. ENDOCRINE: no heat or cold intolerance. 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 Past Anesthesia/Blood Transfusion Reactions: No Reported Reaction Additional Past Anesthesia/Blood Transfusion Reaction / Comment(s): CLAUSTROPHOBIA Date of Last Stent Placement:: 2017 Past Psychological History: No Psychological Hx Reported Smoking Status: Never smoker Past Alcohol Use History: None Reported Past Drug Use History: None Reported - Past Family History Mother Family Medical History: Myocardial Infarction (DE) Additional Family Medical History / Comment(s): heart PROBLEMS Father Additional Family Medical History / Comment(s): HEART PROBLEMS Medications and Allergies Home Medications Medication Instructions Recorded Confirmed Type ALPRAZolam [Xanax] 0.25 mg PO TID PRN 03/25/14 02/02/19 History Irbesartan [Avapro] 75 mg PO DAILY 06/21/14 02/02/19 History Isosorbide Mononitrate [Isosorbide 30 mg PO DAILY 06/19/15 02/02/19 History Mononitrate ER] Spironolactone [Aldactone] 12.5 mg PO DAILY 07/05/17 02/02/19 History Atorvastatin Calcium [Lipitor] 80 mg PO HS 02/20/18 02/02/19 History Clopidogrel [Plavix] 75 mg PO DAILY #30 tab 02/22/18 02/02/19 Rx Nitroglycerin Sl Tabs [Nitrostat] 0.4 mg SUBLINGUAL Q5M PRN #25 tab 02/22/18 02/02/19 Rx Amiodarone [Cordarone] 100 mg PO DAILY tab 06/05/18 02/02/19 Rx Metoprolol Succinate [Toprol XL] 25 mg PO DAILY 02/02/19 02/02/19 History Ranolazine [Ranexa] 500 mg PO BID 02/02/19 02/02/19 History Warfarin Sodium 3 mg PO DAILY 02/02/19 02/02/19 History Allergies Allergy/AdvReac Type Severity Reaction Status Date / Time No Known Allergies Allergy Verified 02/02/19 08:40 Physical Exam Vitals: Vital Signs Temp Pulse Pulse Resp BP BP BP 02/04/19 10:00 72 19 103/64 02/04/19 09:30 88 21 132/89 02/04/19 09:00 84 15 151/97 02/04/19 08:30 82 17 143/98 02/04/19 08:00 97.6 F 84 11 L 143/83 02/04/19 07:30 60 18 81/57 02/04/19 07:00 58 L 15 115/74 02/04/19 06:30 57 L 16 127/68 02/04/19 06:00 65 16 86/59 02/04/19 05:30 66 17 90/63 02/04/19 05:00 64 21 151/79 02/04/19 04:30 64 13 136/97 02/04/19 04:00 72 19 91/62 02/04/19 03:30 71 17 85/60 02/04/19 03:00 67 14 84/56 02/04/19 02:30 70 15 90/59 02/04/19 02:00 68 17 85/58 02/04/19 01:30 72 10 L 90/57 02/03/19 23:57 97.5 F L 65 16 81/54 02/03/19 23:04 76/47 02/03/19 22:40 72/50 02/03/19 22:15 74/48 02/03/19 21:15 70/48 74/51 02/03/19 20:00 97.6 F 65 16 75/47 80/49 02/03/19 16:00 98.6 F 88 16 100/64 02/03/19 12:00 98.4 F 83 16 112/69 Pulse Ox 02/04/19 10:00 96 02/04/19 09:30 95 02/04/19 09:00 92 L 02/04/19 08:30 95 02/04/19 08:00 97 02/04/19 07:30 97 02/04/19 07:00 94 L 02/04/19 06:30 97 02/04/19 06:00 94 L 02/04/19 05:30 95 02/04/19 05:00 95 02/04/19 04:30 96 02/04/19 04:00 94 L 02/04/19 03:30 93 L 02/04/19 03:00 94 L 02/04/19 02:30 02/04/19 02:00 100 02/04/19 01:30 86 L 02/03/19 23:57 94 L 02/03/19 23:04 02/03/19 22:40 02/03/19 22:15 02/03/19 21:15 02/03/19 20:00 96 02/03/19 16:00 93 L 02/03/19 12:00 99 Intake and Output 02/03/19 02/04/19 02/04/19 22:59 06:59 14:59 Intake Total 240 400 400 Output Total 65 475 Balance 240 335 -75 Intake: IV 400 400 .9 400 400 Oral 240 Output: Urine 65 475 Other: Voiding Method Toilet Indwelling Catheter Indwelling Catheter # Bowel Movements 1 Weight 62.4 kg Physical Examrevealed 78-year-old female in no distress, very pleasant. Head: Atraumatic, normocephalic. HEENT:[Neck is supple.] [No neck masses.] [No thyromegaly.] [No JVD.]PERRLA, EOMI, no icterus. Chest: [symmetrical chest expansion, minimal fine crackles at the bases, no rhonchi and no wheezes.] Cardiac Exam: normal S1 and S2, 2/6 systolic murmur thought the precordium. Abdomen: [Soft, nontender, no megaly, no rebound, no guarding, normal bowel sounds.] Extremities: [No clubbing, no edema, no cyanosis.]good pulses bilaterally. Neurological Exam: [No focal neurologic deficit.]no gross focal neurologic deficits. Psychiatric: Normal mood affect and normal mental status examination. Skin: No rashes. Results - Laboratory Findings CBC and BMP: 02/04/19 04:32 02/04/19 04:32 PT/INR, D-dimer PT 16.5 sec (9.0-12.0) H 02/04/19 06:28 INR 1.7 (<1.2) H 02/04/19 06:28 Abnormal lab findings: Abnormal Labs 02/02/19 02/02/19 02/02/19 02:57 02:57 02:57 Hgb 11.3 L Hct RDW 16.1 H PT 31.4 H INR 3.3 H Sodium 136 L Carbon Dioxide BUN 29 H Creatinine 1.50 H Glucose 143 H POC Glucose (mg/dL) Magnesium 2.6 H AST 188 H ALT 186 H Alkaline Phosphatase 367 H Urine Appearance Ur Specific [place] Urine Protein Urine Blood Urine RBC Urine Mucus 02/03/19 02/03/19 02/04/19 05:45 05:45 00:48 Hgb 10.8 L Hct 33.8 L RDW 16.2 H 16.0 H PT INR Sodium Carbon Dioxide BUN 35 H Creatinine 1.36 H Glucose POC Glucose (mg/dL) Magnesium AST 100 H ALT 162 H Alkaline Phosphatase 294 H Urine Appearance Ur Specific [place] Urine Protein Urine Blood Urine RBC Urine Mucus 02/04/19 02/04/19 02/04/19 00:48 00:59 04:32 Hgb Hct RDW PT INR Sodium Carbon Dioxide 21 L 19 L BUN 46 H 49 H Creatinine 2.68 H 2.61 H Glucose 159 H 131 H POC Glucose (mg/dL) 166 H Magnesium AST 216 H ALT 275 H Alkaline Phosphatase 314 H Urine Appearance Ur Specific [place] Urine Protein Urine Blood Urine RBC Urine Mucus 02/04/19 02/04/19 02/04/19 04:32 04:40 06:28 Hgb 10.9 L Hct RDW 16.0 H PT 16.5 H INR 1.7 H Sodium Carbon Dioxide BUN Creatinine Glucose POC Glucose (mg/dL) Magnesium AST ALT Alkaline Phosphatase Urine Appearance Cloudy H Ur Specific [place] >1.050 H Urine Protein Trace H Urine Blood Large H Urine RBC 24 H Urine Mucus Rare H - Diagnostic Findings Chest x-ray: image reviewed (chest x-ray is suggestive of interstitial pulmonary edema.) Additional studies: CT angiogram of abdomen and pelvis as noted in HPI. Assessment and Plan Assessment: impression: 1 infrarenal aortic dissection, could be acute or could be chronic, 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 is recommended at this point. I believe it is mostly an incidental finding noted on workup for abdominal pain and elevated liver enzymes. 2 chronic atrial fibrillation, rate controlled. 3 history of deep vein thrombosis 4 Coumadin induced coagulopathy 5 severe GERD, poorly controlled 6 elevated liver enzymes could be medications induced including statin and amiodarone, these are presently on hold, being evaluated by gastroenterology on the case. 7acute diastolic congestive heart failure, patient is responding to diuretics, and being followed by cardiology. Recommendation: Continue present treatment plan including diuretics, blood pressure control medications, anticoagulation therapy, treatment for GERD, patient was started on Pepcid. And Carafate was added.continue to monitor the blood pressure closely, will follow. Discussed her condition with her, family members, and vascular surgery on the case. Time with Patient: Greater than 30
--- NOTE | 2019-02-04 11:38 | P.PN ---
Subjective 78-year-old female came in with epigastric abdominal burning sensation secondary to gastritis or peptic ulcer disease. Patient is also in heart failure and hepatic congestion leading to elevated liver enzymes hepatic congestion is most probably from pulmonary hypertension, heart failure and tricuspid regurgitation. Patient's serum creatinine improved from 1.5-1.3 with IV Lasix which is being continued patient still has crackles on exam patient is undergoing MRCP because of dilated bile ducts on ultrasound. Her elevated liver enzymes are most probably secondary to hepatic congestion. Patient is feeling much better. 02/04/2019 Patient started complaining of abdominal pain and epigastric area because of which there was suspicion of a I did dissection patient underwent CAT scan with contrast patient did have a small skin segment dissection but appears to be chronic does not appear to be contributing to her symptoms was evaluated by [facility] surgery. Unfortunately patient the kidney function is poor since she received contrast and creatinine went up to 2.6 nephrology will be consultative probably need to hold off on her Lasix temporarily as well as Aldactone. INR is 1.7 patient will receive 3 mg of Coumadin was receiving 2.5 mg of Coumadin. Liver enzymes went up and CAT scan of the chest did show pulmonary edema patient hepatic congestion appears to be bit worse now. Her abdominal pain also resolved now. Constitutional: Denied any fatigue denied any fever. Cardio vascular: denied any chest pain, palpitations Gastrointestinal denied any nausea vomiting Pulmonary: Denied any shortness of breath cough Neurologic denied any new focal deficits All inpatient medications were reviewed and appropriate changes in these med ications as dictated in the interval history and assessment and plan. Objective - Vital Signs Vital signs: Vital Signs Temp 97.6 F 02/04/19 08:00 Pulse 71 02/04/19 11:00 Resp 16 02/04/19 11:00 BP 123/65 02/04/19 11:00 Pulse Ox 98 02/04/19 11:00 Intake & Output 02/03/19 02/04/19 02/04/19 18:59 06:59 18:59 Intake Total 222 640 500 Output Total 65 625 Balance 222 575 -125 Weight 62.4 kg Intake: IV 400 500 .9 400 500 Oral 222 240 Output: Urine 65 625 Other: Voiding Method Toilet Indwelling Catheter Indwelling Catheter # Voids 1 # Bowel Movements 2 1 - Exam PHYSICAL EXAMINATION: GENERAL: The patient is alert and oriented x3, not in any acute distress. Well developed, well nourished. HEENT: Pupils are round and equally reacting to light. EOMI. No scleral icterus. No conjunctival pallor. Normocephalic, atraumatic. No pharyngeal erythema. No thyromegaly. CARDIOVASCULAR: S1 and S2 present. No murmurs, rubs, or gallops. PULMONARY: Bibasilar crackles on exam no wheezing was appreciated fairly good air entry into bilateral lung gonsalez. ABDOMEN: Soft, nontender, nondistended, normoactive bowel sounds. No palpable organomegaly. MUSCULOSKELETAL: No joint swelling or deformity. EXTREMITIES: No cyanosis, clubbing, or pedal edema. NEUROLOGICAL: Gross neurological examination did not reveal any focal deficits. SKIN: No rashes. - Labs CBC & Chem 7: 02/04/19 04:32 02/04/19 04:32 Labs: Abnormal Lab Results - Last 24 Hours (Table) 02/04/19 02/04/19 02/04/19 Range/Units 00:48 00:48 00:59 Hgb 10.8 L (11.4-16.0) gm/dL Hct 33.8 L (34.0-46.0) % RDW 16.0 H (11.5-15.5) % PT (9.0-12.0) sec INR (<1.2) Carbon Dioxide 21 L (22-30) mmol/L BUN 46 H (7-17) mg/dL Creatinine 2.68 H (0.52-1.04) mg/dL Glucose 159 H (74-99) mg/dL POC Glucose (mg/dL) 166 H (75-99) mg/dL AST (14-36) U/L ALT (9-52) U/L Alkaline Phosphatase (38-126) U/L Urine Appearance (Clear) Ur Specific [place] (1.001-1.035) Urine Protein (Negative) Urine Blood (Negative) Urine RBC (0-5) /hpf Urine Mucus (None) /hpf 02/04/19 02/04/19 02/04/19 Range/Units 04:32 04:32 04:40 Hgb 10.9 L (11.4-16.0) gm/dL Hct (34.0-46.0) % RDW 16.0 H (11.5-15.5) % PT (9.0-12.0) sec INR (<1.2) Carbon Dioxide 19 L (22-30) mmol/L BUN 49 H (7-17) mg/dL Creatinine 2.61 H (0.52-1.04) mg/dL Glucose 131 H (74-99) mg/dL POC Glucose (mg/dL) (75-99) mg/dL AST 216 H (14-36) U/L ALT 275 H (9-52) U/L Alkaline Phosphatase 314 H (38-126) U/L Urine Appearance Cloudy H (Clear) Ur Specific [place] >1.050 H (1.001-1.035) Urine Protein Trace H (Negative) Urine Blood Large H (Negative) Urine RBC 24 H (0-5) /hpf Urine Mucus Rare H (None) /hpf 02/04/19 Range/Units 06:28 Hgb (11.4-16.0) gm/dL Hct (34.0-46.0) % RDW (11.5-15.5) % PT 16.5 H (9.0-12.0) sec INR 1.7 H (<1.2) Carbon Dioxide (22-30) mmol/L BUN (7-17) mg/dL Creatinine (0.52-1.04) mg/dL Glucose (74-99) mg/dL POC Glucose (mg/dL) (75-99) mg/dL AST (14-36) U/L ALT (9-52) U/L Alkaline Phosphatase (38-126) U/L Urine Appearance (Clear) Ur Specific [place] (1.001-1.035) Urine Protein (Negative) Urine Blood (Negative) Urine RBC (0-5) /hpf Urine Mucus (None) /hpf Assessment and Plan Plan: -Chest pain, epigastric abdominal pain and atypical noncardiac appears to be secondary to peptic ulcer disease or gastritis patient will be on Protonix. Possible contrast nephropathy: Nephrology will be consulted patient was started on IV fluids -Elevated liver enzymes most probably secondary to fatty congestion improved with Lasix now presently worse because of for possibly secondary to hypotension and decreased hepatic congestion CAT scan showing worsening pulmonary edema -Acute renal failure prerenal azotemia probably secondary to congestive heart failure she'll improved with Lasix patient was hypotensive yesterday and received contrast now worsening again possibility of contrast nephropathy now. Nephrology will be consulting. A she was receiving 100 mL of normal saline because of pulmonary edema patient is also receiving Lasix. -Possibly chronic mild abdominal aortic aneurysm with rupture as per vascular surgery this is not contributing to patient's symptoms -Atrial fibrillation presently rate controlled patient her DVT in the past patient is on Coumadin, she'll be resumed on 3 mg of Coumadin repeat INR tomorrow -Gases reflux disease -Hypertension
--- NOTE | 2019-02-04 11:55 | P.PN ---
Subjective Progress Note Date: 02/04/19 Principal diagnosis: Chest discomfort, paroxysmal fibrillation The patient is an 78-year-old female who is currently admitted for CHF exacerbation, who has also had a history of symptomatic paroxysmal atrial fibrillation and CAD status post CABG. She is currently resting comfortably in bed with her family at her bedside. She denies any chest discomfort, palpitations, dyspnea, or dizziness. Previously she had been having epigastric discomfort for several days which did not resolve the GI medications. A CTA of the abdomen and pelvis revealed mild infrarenal aortic ectasia with a short segment dissection just caudal to the renal artery origins. Maximum aortic diameter 2.5 cm. Vascular surgery was consulted and no intervention is necessary at this time. A hypodense lesion was noted on her left hepatic lobe, however MRCP was negative for any suspicious liver lesions. GENERAL: Well-appearing, well-nourished and in no acute distress. NECK: Supple without JVD or thyromegaly. LUNGS: Breath sounds clear to auscultation bilaterally. Respiration equal and unlabored. No wheezes, rales or rhonchi. HEART: Regular rate and rhythm. Systolic murmur. No rubs or gallops. S1 and S2 heard. EXTREMITIES: Normal range of motion, no edema. No clubbing or cyanosis. Peripheral pulses intact and strong. Echocardiogram showed LV function of 50-55% with moderate to severe mitral regurgitation, severe tricuspid regurgitation, and severe pulmonary hypertension Labs: WBC 7.1, hemoglobin 10.9, hematocrit 34.2, platelet 195, sodium 138, potassium 4.4, BUN 49, creatinine 2.61, AST 216, ALT 275, ALP 314 Hepatology serology negative Assessment: #1 chest discomfort, likely gastrointestinal in origin #2 CHF exacerbation, diastolic heart failure, #3 mitral regurgitation, moderate to severe #4 pulmonary hypertension with tricuspid regurgitation #5 aortic dissection #6 elevated liver enzymes Plan: Discontinue amiodarone. Nothing by mouth after midnight and schedule right heart cath and ARUN to assess valvular heart disease and pulmonary pressures. Will continue to make further recommendations as needed Objective - Vital Signs Vital signs: Vital Signs Temp 97.6 F 02/04/19 08:00 Pulse 71 02/04/19 11:00 Resp 16 02/04/19 11:00 BP 123/65 02/04/19 11:00 Pulse Ox 98 02/04/19 11:00 Intake & Output 02/03/19 02/04/19 02/04/19 18:59 06:59 18:59 Intake Total 222 640 500 Output Total 65 625 Balance 222 575 -125 Weight 62.4 kg Intake: IV 400 500 .9 400 500 Oral 222 240 Output: Urine 65 625 Other: Voiding Method Toilet Indwelling Catheter Indwelling Catheter # Voids 1 # Bowel Movements 2 1 - Labs CBC & Chem 7: 02/04/19 04:32 02/04/19 04:32 Labs: Abnormal Lab Results - Last 24 Hours (Table) 02/04/19 02/04/19 02/04/19 Range/Units 00:48 00:48 00:59 Hgb 10.8 L (11.4-16.0) gm/dL Hct 33.8 L (34.0-46.0) % RDW 16.0 H (11.5-15.5) % PT (9.0-12.0) sec INR (<1.2) Carbon Dioxide 21 L (22-30) mmol/L BUN 46 H (7-17) mg/dL Creatinine 2.68 H (0.52-1.04) mg/dL Glucose 159 H (74-99) mg/dL POC Glucose (mg/dL) 166 H (75-99) mg/dL AST (14-36) U/L ALT (9-52) U/L Alkaline Phosphatase (38-126) U/L Urine Appearance (Clear) Ur Specific [place] (1.001-1.035) Urine Protein (Negative) Urine Blood (Negative) Urine RBC (0-5) /hpf Urine Mucus (None) /hpf 02/04/19 02/04/19 02/04/19 Range/Units 04:32 04:32 04:40 Hgb 10.9 L (11.4-16.0) gm/dL Hct (34.0-46.0) % RDW 16.0 H (11.5-15.5) % PT (9.0-12.0) sec INR (<1.2) Carbon Dioxide 19 L (22-30) mmol/L BUN 49 H (7-17) mg/dL Creatinine 2.61 H (0.52-1.04) mg/dL Glucose 131 H (74-99) mg/dL POC Glucose (mg/dL) (75-99) mg/dL AST 216 H (14-36) U/L ALT 275 H (9-52) U/L Alkaline Phosphatase 314 H (38-126) U/L Urine Appearance Cloudy H (Clear) Ur Specific [place] >1.050 H (1.001-1.035) Urine Protein Trace H (Negative) Urine Blood Large H (Negative) Urine RBC 24 H (0-5) /hpf Urine Mucus Rare H (None) /hpf 02/04/19 Range/Units 06:28 Hgb (11.4-16.0) gm/dL Hct (34.0-46.0) % RDW (11.5-15.5) % PT 16.5 H (9.0-12.0) sec INR 1.7 H (<1.2) Carbon Dioxide (22-30) mmol/L BUN (7-17) mg/dL Creatinine (0.52-1.04) mg/dL Glucose (74-99) mg/dL POC Glucose (mg/dL) (75-99) mg/dL AST (14-36) U/L ALT (9-52) U/L Alkaline Phosphatase (38-126) U/L Urine Appearance (Clear) Ur Specific [place] (1.001-1.035) Urine Protein (Negative) Urine Blood (Negative) Urine RBC (0-5) /hpf Urine Mucus (None) /hpf
--- NOTE | 2019-02-04 12:05 | P.PN ---
Progress Note - Text Patient interviewed and examined Yesterday she complained of abdominal discomfort and a CT of the abdomen showed a limited aortic dissection in the infrarenal portion of the aorta. Medical treatment recommended Her BUN and creatinine are rising. Lasix has been discontinued IV fluids ongoing LFTs are worse MRI of the hepatobiliary system does not reveal any hepatic pathology or masses Initially I thought I would consider continuing amiodarone but given the absence of any clear-cut liver pathology. Amiodarone as well as statins I'm contemplating ARUN to assess her mitral valve as well as a right heart cath to see if her pulmonary hypertension is predominantly pulmonary or is it of left-sided origin Will keep her nothing by mouth tomorrow and discussed with Dr. Mena Please see full dictation minus practitioner
[2019-02-04] MEDS: MIDODRINE 5 MG TAB PO SCH (18:23)
[2019-02-04] MEDS: ALPRAZolam 0.25 MG TAB PO PRN (18:25)
[2019-02-04] MEDS: WARFARIN 3 MG TAB PO SCH (19:12)
[2019-02-04] MEDS ORDERED: MIDODRINE 5 MG TAB PO ONE (19:15)
[2019-02-04] MEDS ORDERED: SODIUM CHLORIDE 0.9% 500 ML 500 ML IV ONE (20:31)
--- NOTE | 2019-02-05 00:20 | CONS ---
CONSULTATION REASON FOR CONSULTATION: Renal failure. HISTORY OF PRESENT ILLNESS: The patient is an 78-year-old female who was initially admitted to the hospital on 02/02/2019 with complaints of shortness of breath. She also had upper epigastric pain. The patient was diuresed initially. Patient had a CT of the abdomen and chest and CT angiogram as well for possibility of underlying dissection. There was a short segment of dissection noted with mild infrarenal aortic ectasia. The CT scan was done on 02/03/2019. Patient developed hypotension today starting sometime during the night when her blood pressure dropped into the 80s. She remained hypotensive and was therefore transferred to the ICU. Urine output dropped as blood pressure had dropped and serum creatinine has been increasing from 1.36 on 02/03/2019 up to 2.6 mg/dL today. Currently patient is not on any pressors. Diuretics are on hold and she is maintained on IV fluids. PAST MEDICAL HISTORY: Past medical history of atrial fibrillation, chest pain, DVT and gastroesophageal reflux disease, hypertension, peripheral vascular disease. 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 PAST SURGICAL HISTORY: Cholecystectomy, coronary artery bypass surgery, cardiac catheterization, coronary stent placement. SOCIAL HISTORY: Negative for smoking, drug abuse or alcohol abuse. MEDICATIONS: Medications at home prior to admission included Avapro, Xanax, Imdur, Aldactone, Lipitor, Plavix, Cordarone, Toprol, Ranexa, Coumadin, nitroglycerin, nitroglycerin tabs. ALLERGIES: None. REVIEW OF SYSTEMS: As per HPI. Other systems negative. PHYSICAL EXAMINATION: On examination, patient is currently comfortable, awake. She is not in any acute distress. Blood pressure when patient was seen was 77/61, heart rate 59 per minute. She is afebrile. Examination of the heart S1, S2. Examination of the lungs, decreased breath sounds at the bases. Abdomen is soft, nontender. Exam of lower extremities shows no significant edema. TYPE [employer] exam is grossly intact. LABS SHOW: Sodium of 138, potassium 4.4, BUN 49, serum creatinine 2.6, hemoglobin 10.9 g/dL. UA shows trace protein, large blood, RBCs 4. ASSESSMENT: 1. Acute kidney injury, ATN initially oliguric, currently nonoliguric with improved urine output as blood pressure has improved. At this time, I will continue with the IV fluids as patient does not appear to be significantly hypervolemic. 2. Atrial fibrillation with controlled ventricular response. 3. Congestive heart failure, diastolic on initial admission, status post diuresis. 4. Infrarenal mild aortic ectasia noted on CTA on 02/03/2019. 5. Moderate to severe mitral regurgitation with severe pulmonary hypertension on echocardiogram. 6. Elevated liver enzymes with negative hepatitis serologies, possibly related to hypotension hypoperfusion. PLAN: Continue IV fluids. Add midodrine to maintain adequate blood pressures. Avoid nephrotoxic agents. Hold off on diuretics for now and repeat labs in a.m. Thank you for this consultation. We will continue to follow the patient with you during her hospitalization. MMODL / IJN: [id number] /
[2019-02-05] MEDS: RANOLAZINE 500 MG TAB.ER.12H PO SCH ×3 (01:11→22:09)
[2019-02-05 04:46] LABS: Anisocytosis Slight; Basophils % (A) 1 %; Eosinophils % (A) 1 %; HCT 32.2 % (34.0-46.0); HGB 10.2 gm/dL (11.4-16.0); Hypochromasia Slight; Lymphocytes # (A) 1.3 k/uL (1.0-4.8); Lymphocytes % (A) 26 %; MCH 29.1 pg (25.0-35.0); MCHC 31.8 g/dL (31.0-37.0); MCV 91.6 fL (80.0-100.0); Mean Platelet Volume 7.2; Monocytes # (A) 0.4 k/uL (0-1.0); Monocytes % (A) 8 %; Neutrophils # (A) 3.1 k/uL (1.3-7.7); Neutrophils % (A) 61 %; Platelet Count 189 k/uL (150-450); RBC 3.52 m/uL (3.80-5.40); RDW 16.8 % (11.5-15.5); WBC 5.1 k/uL (3.8-10.6)
[2019-02-05 04:53] LABS: INR 1.9 (<1.2); Partial Thromboplastin Time 29.8 sec (22.0-30.0); Prothrombin Time 19.1 sec (9.0-12.0)
[2019-02-05 04:56] LABS: Potassium 4.1 mmol/L (3.5-5.1)
--- NOTE | 2019-02-05 07:42 | P.PN ---
Subjective Progress Note Date: 02/05/19 Principal diagnosis: Paroxysmal atrial fibrillation This is an 78-year-old female patient with a past medical history significant for CAD and status post revascularization, paroxysmal atrial fibrillation, as well as multiple comorbid conditions, who initially presented to the hospital with abdominal discomfort and underwent a computed tomography scan of the abdomen and pelvis which revealed possible dissected infrarenal abdominal aortic aneurysm. She was seen by vascular surgeon who recommended conservative medical approach at this point. The echocardiogram revealed moderate to severe mitral regurgitation and also pulmonary hypertension. The patient is scheduled today to undergo a ARUN and heart catheterization including right and left heart catheterization. Objective - Vital Signs Vital signs: Vital Signs Temp 97.8 F 02/05/19 04:00 Pulse 68 02/05/19 06:00 Resp 15 02/05/19 06:00 BP 140/76 02/05/19 06:00 Pulse Ox 97 02/05/19 06:00 Intake & Output 02/04/19 02/05/19 02/05/19 18:59 06:59 18:59 Intake Total 1850 2030 Output Total 1043 315 Balance 807 1715 Weight 66.9 kg Intake: IV 1200 2000 .9 1200 2000 Oral 650 30 Output: Urine 1043 315 Other: Voiding Method Indwelling Catheter Indwelling Catheter - Constitutional General appearance: Present: no acute distress - Respiratory Respiratory: bilateral: CTA - Cardiovascular Rhythm: regular Heart sounds: normal: S1, S2 - Labs CBC & Chem 7: 02/05/19 04:12 02/05/19 04:12 Labs: Abnormal Lab Results - Last 24 Hours (Table) 02/05/19 02/05/19 02/05/19 Range/Units 04:12 04:12 04:12 RBC 3.52 L (3.80-5.40) m/uL Hgb 10.2 L (11.4-16.0) gm/dL Hct 32.2 L (34.0-46.0) % RDW 16.8 H (11.5-15.5) % PT 19.1 H (9.0-12.0) sec INR 1.9 H (<1.2) Chloride 112 H (98-107) mmol/L Carbon Dioxide 19 L (22-30) mmol/L BUN 41 H (7-17) mg/dL Creatinine 1.96 H (0.52-1.04) mg/dL Calcium 8.0 L (8.4-10.2) mg/dL AST 112 H (14-36) U/L ALT 202 H (9-52) U/L Alkaline Phosphatase 244 H (38-126) U/L Assessment and Plan Assessment: Assessment #1 abdominal discomfort #2 paroxysmal atrial fibrillation #3 severe mitral regurgitation #4 pulmonary hypertension #5 stable infrarenal aortic dissection #6 multiple comorbid conditions Plan #1 continue the current medical regimen #2 she is to have a ARUN and heart catheterization to assess MR #3 I would hold her Coumadin today and possibly do the procedure tomorrow #4 follow-up with the patient
--- NOTE | 2019-02-05 08:11 | P.PN ---
Subjective Progress Note Date: 02/05/19 Principal diagnosis: transaminitis Presently feels well. White count 5.1. Hemoglobin 10.2. INR 1.9. BUN 41. Creatinine improved 1.9. LFTs improved; Total bilirubin not obtained. AST 112. ALT 202. AP 244. Possible ARUN today. Objective - Vital Signs Vital signs: Vital Signs Temp 97.8 F 02/05/19 04:00 Pulse 68 02/05/19 06:00 Resp 15 02/05/19 06:00 BP 140/76 02/05/19 06:00 Pulse Ox 97 02/05/19 06:00 Intake & Output 02/04/19 02/05/19 02/05/19 18:59 06:59 18:59 Intake Total 1850 2030 Output Total 1043 315 Balance 807 1715 Weight 66.9 kg Intake: IV 1200 2000 .9 1200 2000 Oral 650 30 Output: Urine 1043 315 Other: Voiding Method Indwelling Catheter Indwelling Catheter - Exam General appearance: The patient is alert, oriented, in no acute distress. HET: Head is normocephalic and atraumatic. Pupils are equal and reactive. Oropharynx is clear without lesions. Neck: Supple without lymphadenopathy. Trachea midline. Heart: S1 S2. Regular rate and rhythm. Lungs: No crackles or wheezes are heard. Abdomen: Soft, nontender, nondistended with bowel sounds. No peritoneal signs. No palpable organomegaly or masses. Extremities: Normal skin color and turgor. No cyanosis, rash, ulceration, clubbing, or edema. Radial and pedal pulses are 2/4 bilaterally. Neurological: No focal deficits. Strength and sensation are grossly intact. - Labs CBC & Chem 7: 02/05/19 04:12 02/05/19 04:12 Labs: Abnormal Lab Results - Last 24 Hours (Table) 02/05/19 02/05/19 02/05/19 Range/Units 04:12 04:12 04:12 RBC 3.52 L (3.80-5.40) m/uL Hgb 10.2 L (11.4-16.0) gm/dL Hct 32.2 L (34.0-46.0) % RDW 16.8 H (11.5-15.5) % PT 19.1 H (9.0-12.0) sec INR 1.9 H (<1.2) Chloride 112 H (98-107) mmol/L Carbon Dioxide 19 L (22-30) mmol/L BUN 41 H (7-17) mg/dL Creatinine 1.96 H (0.52-1.04) mg/dL Calcium 8.0 L (8.4-10.2) mg/dL AST 112 H (14-36) U/L ALT 202 H (9-52) U/L Alkaline Phosphatase 244 H (38-126) U/L Assessment and Plan (1) Transaminitis Current Visit: Yes Status: Acute Code(s): R74.0 - NONSPEC ELEV OF LEVELS OF TRANSAMNS & LACTIC ACID DEHYDRGNSE SNOMED Code(s): 863765192 (2) GERD (gastroesophageal reflux disease) Current Visit: Yes Status: Acute Code(s): K21.9 - GASTRO-ESOPHAGEAL REFLUX DISEASE WITHOUT ESOPHAGITIS SNOMED Code(s): 834482006 (3) DVT (deep venous thrombosis) Current Visit: Yes Status: Acute Code(s): I82.409 - ACUTE EMBOLISM AND THOMBOS UNSP DEEP VN UNSP LOWER EXTREMITY SNOMED Code(s): 778949352 (4) Atrial fibrillation Current Visit: Yes Status: Acute Code(s): I48.91 - UNSPECIFIED ATRIAL FIBRILLATION SNOMED Code(s): 03457727 (5) Warfarin-induced coagulopathy Current Visit: Yes Status: Acute Code(s): D68.32 - HEMORRHAGIC DISORD D/T EXTRINSIC CIRCULATING ANTICOAGULANTS; T45.515A - ADVERSE EFFECT OF ANTICOAGULANTS, INITIAL ENCOUNTER SNOMED Code(s): 29448884 (6) Aneurysm of infrarenal abdominal aorta Narrative/Plan: stable Current Visit: Yes Status: Acute Code(s): I71.4 - ABDOMINAL AORTIC ANEURYSM, WITHOUT RUPTURE SNOMED Code(s): 034292929 (7) Mitral regurgitation Current Visit: Yes Status: Acute Code(s): I34.0 - NONRHEUMATIC MITRAL (VALVE) INSUFFICIENCY SNOMED Code(s): 64074576 Plan: 1. ARUN heart catheterization to assess MR. 2. Continue Pepcid 20 mHz twice daily intolerance to Protonix secondary acute kidney injury. Carafate 1 g 4 times daily. 3. Obtain previous upper endoscopy results from [place] 3-4 months ago placed i n chart for review. 4. Daily CMP. We'll continue to follow. Assessment and plan a care discussed with Dr. Bedolla
--- NOTE | 2019-02-05 08:12 | P.PN ---
Subjective Progress Note Date: 02/05/19 Patient seen and examined. Overall no pain. Feeling better Objective - Vital Signs Vital signs: Vital Signs Temp 97.8 F 02/05/19 04:00 Pulse 68 02/05/19 06:00 Resp 15 02/05/19 06:00 BP 140/76 02/05/19 06:00 Pulse Ox 97 02/05/19 06:00 Intake & Output 02/04/19 02/05/19 02/05/19 18:59 06:59 18:59 Intake Total 1850 2030 Output Total 1043 315 Balance 807 1715 Weight 66.9 kg Intake: IV 1200 2000 .9 1200 2000 Oral 650 30 Output: Urine 1043 315 Other: Voiding Method Indwelling Catheter Indwelling Catheter - Exam General: No acute distress Heart: Regular Lungs: No respiratory distress Abdomen: Soft, nontender, nondistended Extremities: No clubbing, cyanosis or edema - Labs CBC & Chem 7: 02/05/19 04:12 02/05/19 04:12 Labs: Abnormal Lab Results - Last 24 Hours (Table) 02/05/19 02/05/19 02/05/19 Range/Units 04:12 04:12 04:12 RBC 3.52 L (3.80-5.40) m/uL Hgb 10.2 L (11.4-16.0) gm/dL Hct 32.2 L (34.0-46.0) % RDW 16.8 H (11.5-15.5) % PT 19.1 H (9.0-12.0) sec INR 1.9 H (<1.2) Chloride 112 H (98-107) mmol/L Carbon Dioxide 19 L (22-30) mmol/L BUN 41 H (7-17) mg/dL Creatinine 1.96 H (0.52-1.04) mg/dL Calcium 8.0 L (8.4-10.2) mg/dL AST 112 H (14-36) U/L ALT 202 H (9-52) U/L Alkaline Phosphatase 244 H (38-126) U/L Assessment and Plan Assessment: 1. Asymptomatic Infrarenal aortic dissection 2. Chest and epigastric abdominal pain-resolved 3. Acute on chronic kidney disease 4. Congestive heart failure 5. Atrial fibrillation- rate controlled. 6. Elevated liver enzymes 7. History of peptic ulcer disease, GERD and hiatal hernia Plan: At this time, still awaiting records from [place] for computed tomography scan. No vascular intervention planned at this point. Continue anticoagulation when able. Continue blood pressure control.
--- NOTE | 2019-02-05 09:34 | P.PN ---
Subjective Patient is seen in follow-up for acute kidney injury. Creatinine peaked at 2.6 at this admission and is down to 1.96 today. Currently maintained on IV fluids. Urine output is in the range of 20-40 mL an hour. Patient did receive 500 mL bolus overnight for hypotension which is now resolved. No vomiting or diarrhea. Oral intake is good. Vital signs are stable. General: The patient appeared well nourished and normally developed. HEENT: Head exam is unremarkable. Neck is without jugular venous distension. LUNGS: Lungs are clear to auscultation and percussion. Breath sounds decreased. HEART: Rate and Rhythm are regular. First and second heart sounds normal. No murmurs, rubs or gallops. ABDOMEN: Abdominal exam reveals normal bowel sounds. Non-tender and non- distended. No evidence of peritonitis. EXTREMITITES: No clubbing, cyanosis, or edema. Objective - Vital Signs Vital signs: Vital Signs Temp 97.7 F 02/05/19 08:00 Pulse 67 02/05/19 08:30 Resp 15 02/05/19 08:30 BP 148/75 02/05/19 08:30 Pulse Ox 97 02/05/19 08:30 Intake & Output 02/04/19 02/05/19 02/05/19 18:59 06:59 18:59 Intake Total 1850 2030 300 Output Total 1043 315 160 Balance 807 1715 140 Weight 66.9 kg Intake: IV 1200 2000 300 .9 1200 2000 300 Oral 650 30 Output: Urine 1043 315 160 Other: Voiding Method Indwelling Catheter Indwelling Catheter - Labs CBC & Chem 7: 02/05/19 04:12 02/05/19 04:12 Labs: Abnormal Lab Results - Last 24 Hours (Table) 02/05/19 02/05/19 02/05/19 Range/Units 04:12 04:12 04:12 RBC 3.52 L (3.80-5.40) m/uL Hgb 10.2 L (11.4-16.0) gm/dL Hct 32.2 L (34.0-46.0) % RDW 16.8 H (11.5-15.5) % PT 19.1 H (9.0-12.0) sec INR 1.9 H (<1.2) Chloride 112 H (98-107) mmol/L Carbon Dioxide 19 L (22-30) mmol/L BUN 41 H (7-17) mg/dL Creatinine 1.96 H (0.52-1.04) mg/dL Calcium 8.0 L (8.4-10.2) mg/dL AST 112 H (14-36) U/L ALT 202 H (9-52) U/L Alkaline Phosphatase 244 H (38-126) U/L Assessment and Plan Plan: Assessment: 1. Acute kidney injury secondary to ATN secondary to hypotension. Creatinine peaked at 2.68 this admission and is down to 1.96 today. Patient's creatinine in May 2018 was 0.8. 2. Diastolic CHF with severe tricuspid regurgitation, moderate to severe mitral regurgitation and severe pulmonary hypertension. 3. Infrarenal mild aortic ectasia. Patient has been seen by vascular surgery. 4. Metabolic acidosis secondary to acute kidney injury and IV fluids. Plan: I will decrease the rate of normal saline to 75 mL an hour. Maintain midodrine. Avoid nephrotoxins. Continue to monitor renal function and urine output. Add oral sodium bicarbonate.
[2019-02-05] MEDS: WARFARIN 3 MG TAB PO SCH (09:51)
[2019-02-05] MEDS: FAMOTIDINE 20 MG/2 ML VIAL IV SCH (10:00)
[2019-02-05] MEDS: SODIUM BICARBONATE TAB 650 MG TAB PO SCH ×2 (10:00→22:09)
[2019-02-05] MEDS: SODIUM CHLORIDE 0.9% 1,000 ML IV SCH ×2 (10:01→18:13)
[2019-02-05] MEDS: METOPROLOL SUCCINATE (ER) 25 MG TAB.ER.24H PO SCH (10:01)
[2019-02-05] MEDS: CLOPIDOGREL 75 MG TAB PO SCH (10:17)
--- NOTE | 2019-02-05 11:21 | PN ---
PROGRESS NOTE This is a pulmonary/critical care progress note DATE OF SERVICE: February 05, 2019 This is an 78-year-old female seen by my partner yesterday in consultation. She apparently was diagnosed with an infrarenal aortic dissection which was relatively small. Apparently, the vascular surgeons are choosing to just observe it at this time. The patient was apparently admitted to the hospital on February 02. She came in with chest pain and abdominal pain. She has had a number of diagnostic tests including a CTA, MRI, and will have a transesophageal echocardiogram today. Currently, she is resting comfortably. She is on 2 L nasal cannula. Her IV is saline at 100 mL an hour. In addition to the above, she has a history of chronic atrial fibrillation, DVT, Coumadin-induced coagulopathy, severe GERD, and elevated liver enzymes, thought to be related to either statins and/or Cordarone. Both are on hold. In addition, she has a history of acute diastolic congestive heart failure. The patient currently is not complaining of either chest or abdominal pain at this time. No respiratory distress. She is on 2 L nasal cannula as I mentioned and also receiving an IV of saline at 100 mL an hours. PHYSICAL EXAMINATION: VITAL SIGNS: Current vital signs are reviewed. Temperature 97.7, heart rate 67, respiratory rate 15, blood pressure 148/75, mean 99, saturations are 97% on 2 L. Appears in no acute distress. HEENT: Examination is grossly unremarkable. Mucous membranes are moist. No oral lesions. NECK: Supple. Full range of motion. No adenopathy or thyromegaly. Neck veins are flat. CARDIOVASCULAR: Examination reveals regular rhythm and rate. Heart rate 67. S1, S2 normal. No S3, S4, or murmur. LUNGS: Relatively clear. Breath sounds equal. No wheezes or rhonchi. ABDOMEN: Soft. No masses or tenderness. Bowel sounds are heard. EXTREMITIES: Are intact. No cyanosis, clubbing, or edema. SKIN: Without rash. NEUROLOGIC: Examination is brief but nonfocal. MICROBIOLOGIC STUDIES: Microbiologic studies are negative or pending. LAB STUDIES: Lab studies Include a white count 5.1, hemoglobin 10.2, hematocrit 32.2, platelet count is normal. PT/INR were 19.1 and 1.9 respectively. Sodium, potassium normal. Chloride 112, CO2 of 19. Anion gap is 8. BUN and creatinine were 41 and 1.96, that is down from 46 and 2.68. The rest of the labs look okay. AST is down to 112, ALT down to 202, alkaline phosphatase down to 244. Urine is noted. C. difficile studies are negative. No chest x-ray to report. MEDICATIONS: Medications are reviewed. Currently, the patient is on Xanax, Plavix, Pepcid, metoprolol, midodrine Narcan, sublingual nitroglycerin, Ranexa, sodium bicarbonate tablets, the basic IV and Coumadin. ASSESSMENT: 1. Infrarenal aortic dissection, which may be acute or chronic, without surgical intervention recommended at this point. 2. Abdominal and chest pain with elevated liver enzyme, of unclear etiology. This could relate to the use of statins and/or amiodarone. 3. Chronic atrial fibrillation, controlled. 4. History of deep venous thrombosis. 5. History of Coumadin-induced coagulopathy. 6. Severe gastroesophageal reflux disease. 7. Diastolic congestive heart failure. PLAN: The patient is doing reasonably well. Medications are reviewed. Currently, she is just on 2 L nasal cannula and saline at 100 mL an hour. We will continue to follow. Liver enzymes are coming down. Transesophageal echocardiogram today. We will continue to follow. Prognosis is guarded. MMODL / IJN: [id number] /
--- NOTE | 2019-02-05 11:27 | P.PN ---
Subjective 78-year-old female came in with epigastric abdominal burning sensation secondary to gastritis or peptic ulcer disease. Patient is also in heart failure and hepatic congestion leading to elevated liver enzymes hepatic congestion is most probably from pulmonary hypertension, heart failure and tricuspid regurgitation. Patient's serum creatinine improved from 1.5-1.3 with IV Lasix which is being continued patient still has crackles on exam patient is undergoing MRCP because of dilated bile ducts on ultrasound. Her elevated liver enzymes are most probably secondary to hepatic congestion. Patient is feeling much better. 02/04/2019 Patient started complaining of abdominal pain and epigastric area because of which there was suspicion of a I did dissection patient underwent CAT scan with contrast patient did have a small skin segment dissection but appears to be chronic does not appear to be contributing to her symptoms was evaluated by va scular surgery. Unfortunately patient the kidney function is poor since she received contrast and creatinine went up to 2.6 nephrology will be consultative probably need to hold off on her Lasix temporarily as well as Aldactone. INR is 1.7 patient will receive 3 mg of Coumadin was receiving 2.5 mg of Coumadin. Liver enzymes went up and CAT scan of the chest did show pulmonary edema patient hepatic congestion appears to be bit worse now. Her abdominal pain also resolved now. 02/05/2019 Patient has a severe mitral regurgitation because of which a cardiology is recommending ARUN which will be done tomorrow, and will be held today aspirin and Plavix will be continued. Liver enzymes are coming down with Lasix at this time. Patient's serum creatinine improved to 1.9 continue with IV Lasix still has crackles in bilateral lower lung bases posteriorly. Constitutional: Denied any fatigue denied any fever. Cardio vascular: denied any chest pain, palpitations Gastrointestinal denied any nausea vomiting Pulmonary: Denied any shortness of breath cough Neurologic denied any new focal deficits All inpatient medications were reviewed and appropriate changes in these medications as dictated in the interval history and assessment and plan. Objective - Vital Signs Vital signs: Vital Signs Temp 97.7 F 02/05/19 08:00 Pulse 67 02/05/19 08:30 Resp 15 02/05/19 08:30 BP 148/75 02/05/19 08:30 Pulse Ox 97 02/05/19 08:30 Intake & Output 02/04/19 02/05/19 02/05/19 18:59 06:59 18:59 Intake Total 1850 2030 300 Output Total 1043 315 160 Balance 807 1715 140 Weight 66.9 kg Intake: IV 1200 2000 300 .9 1200 2000 300 Oral 650 30 Output: Urine 1043 315 160 Other: Voiding Method Indwelling Catheter Indwelling Catheter - Exam PHYSICAL EXAMINATION: GENERAL: The patient is alert and oriented x3, not in any acute distress. Well developed, well nourished. HEENT: Pupils are round and equally reacting to light. EOMI. No scleral icterus. No conjunctival pallor. Normocephalic, atraumatic. No pharyngeal erythema. No thyromegaly. CARDIOVASCULAR: S1 and S2 present. No murmurs, rubs, or gallops. PULMONARY: Bibasilar crackles on exam no wheezing was appreciated fairly good air entry into bilateral lung gonsalez. ABDOMEN: Soft, nontender, nondistended, normoactive bowel sounds. No palpable organomegaly. MUSCULOSKELETAL: No joint swelling or deformity. EXTREMITIES: No cyanosis, clubbing, or pedal edema. NEUROLOGICAL: Gross neurological examination did not reveal any focal deficits. SKIN: No rashes. - Labs CBC & Chem 7: 02/05/19 04:12 02/05/19 04:12 Labs: Abnormal Lab Results - Last 24 Hours (Table) 02/05/19 02/05/19 02/05/19 Range/Units 04:12 04:12 04:12 RBC 3.52 L (3.80-5.40) m/uL Hgb 10.2 L (11.4-16.0) gm/dL Hct 32.2 L (34.0-46.0) % RDW 16.8 H (11.5-15.5) % PT 19.1 H (9.0-12.0) sec INR 1.9 H (<1.2) Chloride 112 H (98-107) mmol/L Carbon Dioxide 19 L (22-30) mmol/L BUN 41 H (7-17) mg/dL Creatinine 1.96 H (0.52-1.04) mg/dL Calcium 8.0 L (8.4-10.2) mg/dL AST 112 H (14-36) U/L ALT 202 H (9-52) U/L Alkaline Phosphatase 244 H (38-126) U/L Assessment and Plan Plan: -Chest pain, epigastric abdominal pain and atypical noncardiac appears to be secondary to peptic ulcer disease or gastritis patient will be on Protonix. Possible contrast nephropathy: Nephrology will be consulted patient was started on IV fluids -Elevated liver enzymes most probably secondary to hepatic congestion improved with Lasix now presently worse because of for possibly secondary to hypotension and decreased hepatic congestion she will be continued on Lasix. Improving liver enzymes. -Acute renal failure prerenal azotemia probably secondary to congestive heart failure , part of renal failure secondary to contrast nephropathy which is improving now continue with IV Lasix. -Severe mitral regurgitation: Hold off Coumadin and the ARUN tomorrow -Possibly chronic mild abdominal aortic aneurysm with rupture as per vascular surgery this is not contributing to patient's symptoms -Atrial fibrillation presently rate controlled patient her DVT in the past patient is on Coumadin, holding of Coumadin today for ARUN -Gases reflux disease -Hypertension
[2019-02-05] MEDS: MIDODRINE 5 MG TAB PO SCH ×3 (12:05→18:41)
[2019-02-05] MEDS ORDERED: NITROGLYCERIN SL TABS 0.4 MG TAB SUBLINGUAL PRN (12:24)
[2019-02-05] MEDS ORDERED: ALPRAZolam 0.5 MG TAB PO PRN (12:24)
[2019-02-05] MEDS ORDERED: SODIUM CHLORIDE 0.9% 1,000 ML in EMPTY BAG 1 BAG IV ONE (12:24)
[2019-02-05] MEDS: ALPRAZolam 0.25 MG TAB PO PRN (22:45)
[2019-02-06 05:04] LABS: Anisocytosis Slight; Basophils % (A) 0 %; Eosinophils % (A) 1 %; HCT 33.5 % (34.0-46.0); HGB 10.7 gm/dL (11.4-16.0); Hypochromasia Slight; Lymphocytes # (A) 1.2 k/uL (1.0-4.8); Lymphocytes % (A) 22 %; MCH 28.7 pg (25.0-35.0); MCHC 31.9 g/dL (31.0-37.0); MCV 89.8 fL (80.0-100.0); Mean Platelet Volume 6.8; Monocytes # (A) 0.5 k/uL (0-1.0); Monocytes % (A) 8 %; Neutrophils # (A) 3.6 k/uL (1.3-7.7); Neutrophils % (A) 66 %; Platelet Count 202 k/uL (150-450); RBC 3.73 m/uL (3.80-5.40); RDW 16.6 % (11.5-15.5); WBC 5.5 k/uL (3.8-10.6)
[2019-02-06 05:17] LABS: Prothrombin Time 19.5 sec (9.0-12.0)
[2019-02-06 05:20] LABS: Calcium 8.5 mg/dL (8.4-10.2); Potassium 4.3 mmol/L (3.5-5.1)
[2019-02-06] MEDS: SODIUM CHLORIDE 0.9% 1,000 ML IV SCH ×2 (05:52→22:10)
[2019-02-06] MEDS ORDERED: ASPIRIN 325 MG TAB PO ONE (06:00)
[2019-02-06] MEDS ORDERED: ATORVASTATIN 80 MG TAB PO ONE (06:00)
[2019-02-06] MEDS: MIDODRINE 5 MG TAB PO SCH ×3 (06:35→17:07)
--- NOTE | 2019-02-06 07:16 | P.PN ---
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 She was seen by vascular surgeon who recommended conservative medical approach at this point. The echocardiogram revealed moderate to severe mitral regurgitation and also pulmonary hypertension. On follow-up with the patient today, she is doing overall better. She denies any chest pain or chest discomfort or shortness of breath. Initially she scheduled to undergo a ARUN and heart cath later on today but the INR continues to be to and the creatinine is improving but still above her baseline. Having said that, I would recommend continue holding the Coumadin for today and repeat the INR tomorrow morning as well as a creatinine and tentatively schedule the patient to undergo a ARUN and heart cath tomorrow. I would continue monitor the blood pressure and possibly stop the midodrine and because she is slightly hyper tensive. Objective - Vital Signs Vital signs: Vital Signs Temp 97.5 F L 02/05/19 20:00 Pulse 72 02/06/19 07:00 Resp 16 02/06/19 07:00 BP 157/95 02/06/19 07:00 Pulse Ox 96 02/06/19 07:00 Intake & Output 02/05/19 02/06/19 02/06/19 18:59 06:59 18:59 Intake Total 1050 825 75 Output Total 629 675 80 Balance 421 150 -5 Intake: IV 1050 825 75 .9 1050 825 75 Output: Urine 629 675 80 Other: Voiding Method Indwelling Catheter Indwelling Catheter - Constitutional General appearance: Present: no acute distress - Respiratory Respiratory: bilateral: CTA - Cardiovascular Rhythm: regular Heart sounds: normal: S1, S2 Abnormal Heart Sounds: Present: systolic murmur - Labs CBC & Chem 7: 02/06/19 04:33 02/06/19 04:33 Labs: Abnormal Lab Results - Last 24 Hours (Table) 02/06/19 02/06/19 02/06/19 Range/Units 04:33 04:33 04:33 RBC 3.73 L (3.80-5.40) m/uL Hgb 10.7 L (11.4-16.0) gm/dL Hct 33.5 L (34.0-46.0) % RDW 16.6 H (11.5-15.5) % PT 19.5 H (9.0-12.0) sec INR 2.0 H (<1.2) Chloride 111 H (98-107) mmol/L BUN 25 H (7-17) mg/dL Creatinine 1.22 H (0.52-1.04) mg/dL Assessment and Plan Assessment: Assessment #1 abdominal discomfort #2 paroxysmal atrial fibrillation #3 severe mitral regurgitation #4 pulmonary hypertension #5 stable infrarenal aortic dissection #6 multiple comorbid conditions Plan #1 continue the current medical regimen #2 she is to have a ARUN and heart catheterization to assess MR #3 I would hold her Coumadin today and possibly do the procedure tomorrow #4 follow-up with the patient
[2019-02-06] MEDS: WARFARIN 3 MG TAB PO SCH (07:30)
--- NOTE | 2019-02-06 08:29 | PN ---
PROGRESS NOTE This is a pulmonary/critical care progress note. DATE OF SERVICE: February 06, 2019 This is an 78-year-old female who was seen by my partner on consultation on Tuesday. I saw her yesterday in followup. The patient came in with abdominal discomfort. The patient is still having some abdominal discomfort. She was found on evaluation to have an infrarenal aortic dissection which was relatively small and thought to be more chronic than acute. The vascular surgeons were consulted and they plan to just observe this for now. She had chest pain and abdominal pain when she came into the hospital on February 02. She has had a number of diagnostic tests and is apparently going to have a transesophageal echocardiogram today to evaluate mitral valve disease. She is currently resting comfortably. She is on room air. She is also getting saline at 75 mL an hour. From time to time, her saturations drop and she puts on 2 L nasal cannula. The patient does have a history of chronic atrial fibrillation, DVT, Coumadin-induced coagulopathy, severe GERD, elevated liver enzymes, thought to be related to either statins and/or use of Cordarone. In addition, the patient does have a history of CHF, diastolic in nature. The patient is feeling better. PHYSICAL EXAMINATION: VITAL SIGNS: Vital signs are reviewed. Her temperature is 98.5, heart rate 72, respiratory rate 16, blood pressure 157/95, mean 115, and saturations are anywhere from 88 up to 96% on 2 L or on room air. She appears in no acute distress. No respiratory distress. No conversational dyspnea. HEENT: Examination is grossly unremarkable. Mucous membranes are moist. Nasal O2 noted. NECK: Supple. Full range of motion. No adenopathy. Neck veins are flat. CARDIOVASCULAR: Examination reveals regular rhythm and rate. S1, S2 normal. Heart rate 72. No distinct murmurs noted. Heart sounds are distant. LUNGS: Reveal mostly clear breath sounds. No wheezes, rhonchi, or crackles. ABDOMEN: Soft. Bowel sounds are heard. EXTREMITIES: Are intact. No cyanosis, clubbing, or edema. SKIN: Without rash. NEUROLOGIC: Examination is brief but nonfocal. LAB DATA: Lab data is reviewed. White count 5.5, hemoglobin 10.7, hematocrit 33.5, platelet count 202,000. PT 19.5, INR 2. Sodium and potassium normal. Chloride 111. CO2 is 22. Anion gap is 6. BUN and creatinine were 25 and 1.22. Microbiology is negative or pending. No recent x-rays. MEDICATIONS: Medications are reviewed. She is currently on Xanax, aspirin, Lipitor, Plavix, Pepcid, metoprolol, midodrine, Narcan, nitroglycerin tablets, Ranexa, sodium bicarbonate tablets and warfarin. ASSESSMENT: 1. Infrarenal aortic dissection, which may be acute or chronic, without surgical intervention recommended at this point. 2. Abdominal and chest pain with elevated liver enzymes, of unclear etiology. Thought to be related to possible use of statins and/or amiodarone. 3. Chronic atrial fibrillation, controlled. 4. History of valvular heart disease. 5. History of deep venous thrombosis. 6. History of Coumadin-induced coagulopathy. 7. Severe acid reflux disease. 8. Diastolic congestive heart failure, stable. PLAN: The patient apparently is going to have a transesophageal echocardiogram today. She is currently either on or off a small amount of O2. She is getting saline at 75 mL an hour. Her abdominal pain is improved. No chest pain. Denies any cough, wheezing, phlegm production. No nausea, vomiting or diarrhea. We will continue to follow. MMODL / IJN: [id number] /
[2019-02-06] MEDS: RANOLAZINE 500 MG TAB.ER.12H PO SCH ×2 (09:27→20:42)
[2019-02-06] MEDS: FAMOTIDINE 20 MG TAB PO SCH (09:27)
[2019-02-06] MEDS: SODIUM BICARBONATE TAB 650 MG TAB PO SCH ×2 (09:27→20:42)
[2019-02-06] MEDS: CLOPIDOGREL 75 MG TAB PO SCH (09:27)
[2019-02-06] MEDS: METOPROLOL SUCCINATE (ER) 25 MG TAB.ER.24H PO SCH (09:27)
--- NOTE | 2019-02-06 09:56 | P.PN ---
Subjective Patient is seen in follow-up for acute kidney injury. Creatinine peaked at 2.6 at this admission and is down to 1.22 today. Currently maintained on IV fluids. She is nonoliguric. No vomiting or diarrhea. Hemodynamically stable. Midodrine not given yesterday. Vital signs are stable. General: The patient appeared well nourished and normally developed. HEENT: Head exam is unremarkable. Neck is without jugular venous distension. LUNGS: Lungs are clear to auscultation and percussion. Breath sounds decreased. HEART: Rate and Rhythm are regular. First and second heart sounds normal. No murmurs, rubs or gallops. ABDOMEN: Abdominal exam reveals normal bowel sounds. Non-tender and non- distended. No evidence of peritonitis. EXTREMITITES: No clubbing, cyanosis, or edema. Objective - Vital Signs Vital signs: Vital Signs Temp 97.9 F 02/06/19 08:00 Pulse 68 02/06/19 09:00 Resp 16 02/06/19 09:00 BP 123/81 02/06/19 09:00 Pulse Ox 89 L 02/06/19 09:00 Intake & Output 02/05/19 02/06/19 02/06/19 18:59 06:59 18:59 Intake Total 1050 825 150 Output Total 629 675 130 Balance 421 150 20 Intake: IV 1050 825 150 .9 1050 825 150 Output: Urine 629 675 130 Other: Voiding Method Indwelling Catheter Indwelling Catheter Indwelling Catheter - Labs CBC & Chem 7: 02/06/19 04:33 02/06/19 04:33 Labs: Abnormal Lab Results - Last 24 Hours (Table) 02/06/19 02/06/19 02/06/19 Range/Units 04:33 04:33 04:33 RBC 3.73 L (3.80-5.40) m/uL Hgb 10.7 L (11.4-16.0) gm/dL Hct 33.5 L (34.0-46.0) % RDW 16.6 H (11.5-15.5) % PT 19.5 H (9.0-12.0) sec INR 2.0 H (<1.2) Chloride 111 H (98-107) mmol/L BUN 25 H (7-17) mg/dL Creatinine 1.22 H (0.52-1.04) mg/dL Assessment and Plan Plan: Assessment: 1. Acute kidney injury secondary to ATN secondary to hypotension. Creatinine peaked at 2.68 this admission and is down to 1.22 today. Patient's creatinine in May 2018 was 0.8. 2. Diastolic CHF with severe tricuspid regurgitation, moderate to severe mitral regurgitation and severe pulmonary hypertension. 3. Infrarenal mild aortic ectasia. Patient has been seen by vascular surgery. 4. Metabolic acidosis secondary to acute kidney injury and IV fluids. Better. Maintained on oral sodium bicarbonate. Plan: Hep-Lock IV fluids. Resume tonight at 10 PM as she scheduled for cardiac catheterization tomorrow. Fluids will be discontinued 12 hours after cardiac catheterization. I did discuss with the patient and her daughter present at bedside the risk of worsening renal function after exposure to IV contrast. They understand. Avoid nephrotoxins. Continue to monitor renal function and urine output. Hold midodrine if systolic blood pressure greater than 100.
[2019-02-06 10:34] LABS: Bilirubin, Delta 0.2 mg/dL (0.0-0.2); Bilirubin,Unconjugated 0.3 mg/dL (0.0-1.1); Total Bilirubin 0.5 mg/dL (0.2-1.3); Total Protein 5.8 g/dL (6.3-8.2)
--- NOTE | 2019-02-06 11:55 | P.PN ---
Subjective Progress Note Date: 02/06/19 Principal diagnosis: 02/06/2019 Patient is sitting up in the bed with family at the bedside in no acute distress. Patient states that she is undergoing a ARUN in the morning. Cardi ology, pulmonary, and nephrology are following. Coumadin is currently being held at this time for tomorrow's procedure. Patient is being closely monitored. Liver functions are slightly improving with the current AST 81, ALT 194, alkaline phosphatase is 271. Current creatinine is 1.22 down from 1.96. Patient denies any shortness of breath, chest pain, or palpitations at this time. Patient states that she is tolerating diet well with no nausea or vomiting noted. Patient's current oxygen saturation is 91% on room air. IV fluids will be held today and resumed this evening for ARUN and cath in the am per nephrology. Guarded prognosis. We'll continue to monitor closely. Objective - Vital Signs Vital signs: Vital Signs Temp 97.9 F 02/06/19 08:00 Pulse 68 02/06/19 10:00 Resp 19 02/06/19 10:00 BP 122/62 02/06/19 10:00 Pulse Ox 91 L 02/06/19 10:00 Intake & Output 02/05/19 02/06/19 02/06/19 18:59 06:59 18:59 Intake Total 1050 825 225 Output Total 629 675 230 Balance 421 150 -5 Intake: IV 1050 825 225 .9 1050 825 225 Output: Urine 629 675 230 Other: Voiding Method Indwelling Catheter Indwelling Catheter Indwelling Catheter - Exam Gen: This is a 78-year-old female sitting up in bed in no acute distress. Blood pressure is 133/72, respirations are 13, pulse is 72, oxygen saturation is 90- 91% on room air, temp is 97.9F HEENT: Head is atraumatic, normocephalic. Pupils equal, round. Sclerae is anicteric. NECK: Supple. No JVD. No lymphadenopathy. No thyromegaly. LUNGS: diminished breath sounds with no wheezes or rhonchi noted. No intercostal retractions. HEART: Regular rate and rhythm. No murmur. ABDOMEN: Soft. Bowel sounds are present. No masses. No tenderness. EXTREMITIES: No pedal edema. No calf tenderness. NEUROLOGICAL: Patient is awake, alert and oriented x3. Cranial nerves 2 through 12 are grossly intact. - Labs CBC & Chem 7: 02/06/19 04:33 02/06/19 04:33 Labs: Abnormal Lab Results - Last 24 Hours (Table) 02/06/19 02/06/19 02/06/19 Range/Units 04:33 04:33 04:33 RBC 3.73 L (3.80-5.40) m/uL Hgb 10.7 L (11.4-16.0) gm/dL Hct 33.5 L (34.0-46.0) % RDW 16.6 H (11.5-15.5) % PT 19.5 H (9.0-12.0) sec INR 2.0 H (<1.2) Chloride 111 H (98-107) mmol/L BUN 25 H (7-17) mg/dL Creatinine 1.22 H (0.52-1.04) mg/dL AST 81 H (14-36) U/L ALT 194 H (9-52) U/L Alkaline Phosphatase 271 H (38-126) U/L Total Protein 5.8 L (6.3-8.2) g/dL Albumin 3.0 L (3.5-5.0) g/dL Assessment and Plan Assessment: Chest pain, epigastric abdominal pain and atypical noncardiac appears to be secondary to peptic ulcer disease or gastritis. Patient is currently on IV Protonix Possible contrast nephropathy: Nephrology is consulted. IV fluids will be held today and resumed this evening for tomorrow's ARUN and catheterization. Normal saline at 75 mL per hour. Will continue to monitor labs closely. Elevated liver enzymes most probably secondary to hepatic congestion improved with Lasix. current ALT is 194, AST is 81, Alk phos is 271. Will continue to monitor. Acute renal failure prerenal azotemia probably secondary to congestive heart failure, renal failure secondary to contrast nephropathy which is slowly improving continue with IV Lasix. Current creatinine is 1.22 Severe mitral regurgitation: Holding Coumadin as patient is to undergo a ARUN with catheterization in the morning. Current INR is 2.0 Possible chronic mild abdominal aortic aneurysm with rupture. Per vascular surgery this is not contributing to patient's symptoms Atrophic fibrillation presently rate controlled with a past medical history of DVT: Patient is on Coumadin but is currently being held for procedure in the morning. Gastroesophageal reflux disease Hypertension: Midodrine was held today. Will continue to monitor vital signs closely. Recommendations and discussion: Recommend to continue current medications management and symptomatic treatment. Will continue to monitor labs and vital signs closely. Will await ARUN report in the morning. Guarded prognosis. Further recommendations to follow.
--- NOTE | 2019-02-06 11:56 | P.PN ---
Subjective Progress Note Date: 02/06/19 Principal diagnosis: transaminitis Presently feels well. White count 5.5. Hemoglobin 10.7. INR 2.0. BUN 25. Creatinine improved 1.2. LFTs improved; Total bilirubin 0.5. AST 81. ALT 194. AP 271. Heart catheterization ARUN scheduled tomorrow pending INR. Objective - Vital Signs Vital signs: Vital Signs Temp 97.9 F 02/06/19 08:00 Pulse 70 02/06/19 11:30 Resp 18 02/06/19 11:30 BP 121/62 02/06/19 11:30 Pulse Ox 91 L 02/06/19 11:30 Intake & Output 02/05/19 02/06/19 02/06/19 18:59 06:59 18:59 Intake Total 1050 825 225 Output Total 629 675 230 Balance 421 150 -5 Intake: IV 1050 825 225 .9 1050 825 225 Output: Urine 629 675 230 Other: Voiding Method Indwelling Catheter Indwelling Catheter Indwelling Catheter - Exam General appearance: The patient is alert, oriented, in no acute distress. HET: Head is normocephalic and atraumatic. Pupils are equal and reactive. Oropharynx is clear without lesions. Neck: Supple without lymphadenopathy. Trachea midline. Heart: S1 S2. Regular rate and rhythm. Lungs: No crackles or wheezes are heard. Abdomen: Soft, nontender, nondistended with bowel sounds. No peritoneal signs. No palpable organomegaly or masses. Extremities: Normal skin color and turgor. No cyanosis, rash, ulceration, clubbing, or edema. Radial and pedal pulses are 2/4 bilaterally. Neurological: No focal deficits. Strength and sensation are grossly intact. - Labs CBC & Chem 7: 02/06/19 04:33 02/06/19 04:33 Labs: Abnormal Lab Results - Last 24 Hours (Table) 02/06/19 02/06/19 02/06/19 Range/Units 04:33 04:33 04:33 RBC 3.73 L (3.80-5.40) m/uL Hgb 10.7 L (11.4-16.0) gm/dL Hct 33.5 L (34.0-46.0) % RDW 16.6 H (11.5-15.5) % PT 19.5 H (9.0-12.0) sec INR 2.0 H (<1.2) Chloride 111 H (98-107) mmol/L BUN 25 H (7-17) mg/dL Creatinine 1.22 H (0.52-1.04) mg/dL AST 81 H (14-36) U/L ALT 194 H (9-52) U/L Alkaline Phosphatase 271 H (38-126) U/L Total Protein 5.8 L (6.3-8.2) g/dL Albumin 3.0 L (3.5-5.0) g/dL Assessment and Plan (1) Transaminitis Narrative/Plan: 78-year-old female with a history of calculus cholecystectomy arrhythmia CAD CABG remote and recent DVT maintained on Plavix Coumadin admitted with chest burning pain GERD type symptoms with recent EGD in August 2018 in [place] with unremarkable findings. Biochemically evidence of transaminitis etiology is unclear possible medication related, statin and Cordarone have been discontinued. Ultrasound abdomen reported a dilated common bile duct 1.2 cm with no obvious focal lesions or defect within the liver or pancreas with an underlying history of calculus cholecystitis. MRCP no significant change from 2013 MRI perhaps minimal stable biliary dilatation without obstructing stone or stricture. Current Visit: Yes Status: Acute Code(s): R74.0 - NONSPEC ELEV OF LEVELS OF TRANSAMNS & LACTIC ACID DEHYDRGNSE SNOMED Code(s): 492184908 (2) GERD (gastroesophageal reflux disease) Current Visit: Yes Status: Acute Code(s): K21.9 - GASTRO-ESOPHAGEAL REFLUX DISEASE WITHOUT ESOPHAGITIS SNOMED Code(s): 970727478 (3) DVT (deep venous thrombosis) Current Visit: Yes Status: Acute Code(s): I82.409 - ACUTE EMBOLISM AND THOMBOS UNSP DEEP VN UNSP LOWER EXTREMITY SNOMED Code(s): 525374897 (4) Atrial fibrillation Current Visit: Yes Status: Acute Code(s): I48.91 - UNSPECIFIED ATRIAL FIBRILLATION SNOMED Code(s): 93039113 (5) Warfarin-induced coagulopathy Current Visit: Yes Status: Acute Code(s): D68.32 - HEMORRHAGIC DISORD D/T EXTRINSIC CIRCULATING ANTICOAGULANTS; T45.515A - ADVERSE EFFECT OF ANTI COAGULANTS, INITIAL ENCOUNTER SNOMED Code(s): 84066307 (6) Aneurysm of infrarenal abdominal aorta Current Visit: Yes Status: Acute Code(s): I71.4 - ABDOMINAL AORTIC ANEURYSM, WITHOUT RUPTURE SNOMED Code(s): 949383957 (7) Mitral regurgitation Current Visit: Yes Status: Acute Code(s): I34.0 - NONRHEUMATIC MITRAL (VALVE) INSUFFICIENCY SNOMED Code(s): 22966786 Plan: 1. ARUN heart catheterization to assess MR possibly tomorrow. 2. Continue Pepcid 20 mg twice daily intolerance to Protonix secondary acute kidney injury. Carafate 1 g 4 times daily. 3. Obtain previous upper endoscopy results from [place] 3-4 months ago placed in chart for review. 4. Daily CMP. We'll continue to follow. Assessment and plan a care discussed with Dr. Bedolla
[2019-02-06] MEDS ORDERED: hydrALAZINE HCL 20 MG/ML 1 ML VIAL IVP PRN (15:06)
[2019-02-06] MEDS: ALPRAZolam 0.25 MG TAB PO PRN ×2 (18:23→22:08)
[2019-02-06] MEDS ORDERED: PRESERVISION PO SCH (21:00)
[2019-02-06] MEDS: PRESERVISION PO SCH (21:17)
[2019-02-07 05:04] LABS: Anisocytosis Slight; Basophils % (A) 0 %; Eosinophils # (A) 0.1 k/uL (0-0.7); Eosinophils % (A) 1 %; HCT 33.9 % (34.0-46.0); HGB 10.9 gm/dL (11.4-16.0); Hypochromasia Slight; Lymphocytes # (A) 1.1 k/uL (1.0-4.8); Lymphocytes % (A) 24 %; MCH 28.6 pg (25.0-35.0); MCV 89.5 fL (80.0-100.0); Mean Platelet Volume 6.7; Monocytes # (A) 0.4 k/uL (0-1.0); Monocytes % (A) 8 %; Neutrophils % (A) 64 %; Platelet Count 210 k/uL (150-450); RBC 3.79 m/uL (3.80-5.40); RDW 16.6 % (11.5-15.5); WBC 4.7 k/uL (3.8-10.6)
[2019-02-07 05:10] LABS: INR 1.8 (<1.2); Prothrombin Time 17.5 sec (9.0-12.0)
[2019-02-07 05:15] LABS: Calcium 8.5 mg/dL (8.4-10.2); Potassium 4.2 mmol/L (3.5-5.1)
[2019-02-07] MEDS: MIDODRINE 5 MG TAB PO SCH ×3 (06:40→17:23)
--- NOTE | 2019-02-07 07:23 | P.PN ---
Subjective Progress Note Date: 02/07/19 Principal diagnosis: Paroxysmal atrial fibrillation This is an 78-year-old female patient with a past medical history significant for CAD and status post revascularization, paroxysmal atrial fibrillation, as well as multiple comorbid conditions, who initially presented to the hospital with abdominal discomfort and underwent a computed tomography scan of the abdomen and pelvis which revealed possible dissected infrarenal abdominal aortic aneurysm. She was seen by vascular surgeon who recommended conservative medical approach at this point. The echocardiogram revealed moderate to severe mitral regurgitation and also pulmonary hypertension. On follow-up with the patient today, February 072018, the patient overall is feeling better. No chest pain or chest discomfort. The shortness of breath is better. Her INR is coming down at 1.8. The creatinine has normalized. She is going to undergo a ARUN and heart catheterization later on today. Objective - Vital Signs Vital signs: Vital Signs Temp 98.4 F 02/07/19 00:00 Pulse 73 02/07/19 07:00 Resp 16 02/07/19 07:00 BP 145/83 02/07/19 07:00 Pulse Ox 97 02/07/19 07:00 Intake & Output 02/06/19 02/07/19 02/07/19 18:59 06:59 18:59 Intake Total 225 675 10 Output Total 715 735 0 Balance -490 -60 10 Intake: IV 225 675 10 .9 225 675 10 Output: Urine 715 735 0 Other: Voiding Method Indwelling Catheter Indwelling Catheter - Constitutional General appearance: Present: no acute distress - Respiratory Respiratory: bilateral: CTA - Cardiovascular Rhythm: regular Heart sounds: normal: S1, S2 Abnormal Heart Sounds: Present: systolic murmur - Labs CBC & Chem 7: 02/07/19 04:22 02/07/19 04:22 Labs: Abnormal Lab Results - Last 24 Hours (Table) 02/06/19 02/07/19 02/07/19 Range/Units 04:33 04:22 04:22 RBC 3.79 L (3.80-5.40) m/uL Hgb 10.9 L (11.4-16.0) gm/dL Hct 33.9 L (34.0-46.0) % RDW 16.6 H (11.5-15.5) % PT 17.5 H (9.0-12.0) sec INR 1.8 H (<1.2) Chloride 111 H (98-107) mmol/L BUN 25 H (7-17) mg/dL Creatinine 1.22 H (0.52-1.04) mg/dL AST 81 H (14-36) U/L ALT 194 H (9-52) U/L Alkaline Phosphatase 271 H (38-126) U/L Total Protein 5.8 L (6.3-8.2) g/dL Albumin 3.0 L (3.5-5.0) g/dL 02/07/19 Range/Units 04:22 RBC (3.80-5.40) m/uL Hgb (11.4-16.0) gm/dL Hct (34.0-46.0) % RDW (11.5-15.5) % PT (9.0-12.0) sec INR (<1.2) Chloride 111 H (98-107) mmol/L BUN 19 H (7-17) mg/dL Creatinine (0.52-1.04) mg/dL AST (14-36) U/L ALT (9-52) U/L Alkaline Phosphatase (38-126) U/L Total Protein (6.3-8.2) g/dL Albumin (3.5-5.0) g/dL Assessment and Plan Assessment: Assessment #1 abdominal discomfort #2 paroxysmal atrial fibrillation #3 severe mitral regurgitation #4 pulmonary hypertension #5 stable infrarenal aortic dissection #6 multiple comorbid conditions Plan #1 continue the current medical regimen #2 she is to have a ARUN and heart catheterization to assess MR #3 follow-up with the patient
[2019-02-07] MEDS: SODIUM CHLORIDE 0.9% 1,000 ML IV SCH ×2 (08:25→19:48)
--- NOTE | 2019-02-07 08:47 | PN ---
PROGRESS NOTE This is a pulmonary/critical care progress note. DATE OF SERVICE: February 07, 2019 This is an 78-year-old female who was admitted back on February 03. She was initially seen by my partner in consultation. She was admitted with a diagnosis of abdominal discomfort and also chest pain. She is going to have a procedure today including a transesophageal echocardiogram as well as a cardiac catheterization. She was found to have an infrarenal aortic dissection which was thought to be relatively small and more chronic in nature. The vascular surgeons are observing that for now. She does have evidence of mitral valve disease and that will be evaluated more thoroughly today. Currently, she is on room air and saturations are 94%. She has an IV of saline at 75 mL an hour. She has no specific complaints. Abdominal and chest pain is pretty much resolved. The patient does have a history of chronic atrial fibrillation, DVT, Coumadin-induced coagulopathy, severe GERD, elevated liver enzymes, as well as diastolic congestive heart failure. All-in-all, the patient is feeling better. She is a bit anxious about her procedures today. PHYSICAL EXAMINATION: VITAL SIGNS: Current vital signs are reviewed. Temperature is 97.6, heart rate 70, respiratory rate 16, blood pressure 143/84, mean 103, saturations on room air 98%. Appears in no acute distress. HEENT: Examination is grossly unremarkable. No supplemental oxygen. Mucous membranes are moist. NECK: Supple. Full range of motion. No adenopathy thyromegaly. Neck veins are flat. CARDIOVASCULAR: Examination reveals a regular rhythm and rate. Heart rate 70. She does have a bit of a hyperdynamic precordium. S1, S2 normal. No S3 or S4. No discernible murmur. LUNGS: Are clear. Breath sounds equal. No wheezes or rhonchi. Breath sounds are equal bilaterally. ABDOMEN: Soft. Bowel sounds are heard. EXTREMITIES: Are intact. No cyanosis, clubbing, or edema. SKIN: Without rash. NEUROLOGIC: Examination is brief but nonfocal. LABORATORY DATA: Laboratory data from today includes a white count of 4.7, hemoglobin 10.9, hematocrit 33.9, platelet count 210,000. PT/INR 17.5 and 1.8. Sodium 139, potassium 4.2, chloride 111, CO2 is 22. Anion gap is 6. BUN and creatinine were 19 and 0.98. Microbiologic studies are negative. No recent chest x-ray. MEDICATIONS: Medications are reviewed. Everything does seem appropriate. ASSESSMENT: 1. Infrarenal aortic dissection, which may be acute or chronic, without surgical intervention recommended at this point. 2. Abdominal pain and chest pain with elevated liver enzymes. The patient's liver abnormalities are possibly thought related to either statin drugs and/or amiodarone. 3. Anticipated transesophageal echocardiogram and cardiac catheterization today. 4. Chronic atrial fibrillation, controlled. 5. History of valvular heart disease. 6. History of deep venous thrombosis. 7. History of Coumadin-induced coagulopathy. 8. Severe acid reflux disease. 9. Diastolic heart failure, stable. PLAN: The patient remains on room air. She has a basic IV. She is scheduled for a transesophageal echocardiogram today and cardiac catheterization. Additional recommendations and suggestions are forthcoming. Prognosis is guarded. We will continue to follow. MMSLOANEL / IJN: [id number] /
[2019-02-07] MEDS ORDERED: fentaNYL (PF) 50 MCG/ML 2 ML AMP ONE (08:50)
[2019-02-07] MEDS ORDERED: IV FLUID CONTINUATION 950 ML IV ONE (08:54)
[2019-02-07] MEDS: BENZOCAINE SPRAY 1 CAN MUCOUS MEM ONE ×2 (08:55→09:00)
[2019-02-07] MEDS ORDERED: fentaNYL (PF) 50 MCG/ML 2 ML AMP IV ONE (09:00)
[2019-02-07] MEDS ORDERED: MIDAZOLAM PF (FBP) 2 MG/2 ML VIAL IV ONE (09:00)
[2019-02-07] MEDS ORDERED: LIDOCAINE 1% INJ 10MG/ML (20 ML MDV) ONE (09:10)
[2019-02-07] MEDS ORDERED: IV FLUID CONTINUATION 1,000 ML IV ONE (09:40)
[2019-02-07] MEDS ORDERED: LIDOCAINE 1% INJ 10MG/ML (20 ML MDV) SQ ONE (10:09)
[2019-02-07] MEDS ORDERED: METOPROLOL TARTRATE 5 MG/5 ML VIAL IVP ONE ×2 (10:24→10:25)
[2019-02-07] MEDS ORDERED: hydrALAZINE HCL 20 MG/ML 1 ML VIAL ONE (10:31)
[2019-02-07] MEDS: hydrALAZINE HCL 20 MG/ML 1 ML VIAL IV ONE ×2 (10:33→10:59)
[2019-02-07] MEDS ORDERED: IOPAMIDOL-370 50ML BTL INJ ONE (10:38)
[2019-02-07] MEDS ORDERED: BIVALIRUDIN BOLUS 250 MG/50 ML IV ONE (10:50)
[2019-02-07] MEDS ORDERED: BIVALIRUDIN 250 MG in SODIUM CHLORIDE 0.9% 50 ML IV ONE (10:51)
[2019-02-07] MEDS ORDERED: ASPIRIN 325 MG TAB ONE (10:52)
[2019-02-07] MEDS ORDERED: ASPIRIN 325 MG TAB PO ONE (10:57)
[2019-02-07] MEDS ORDERED: NITROGLYCERIN 1000MCG/10ML SYRINGE INTRACORON ONE (11:07)
[2019-02-07] MEDS ORDERED: IOPAMIDOL-370 125ML BTL INJ ONE (11:08)
[2019-02-07] MEDS ORDERED: MAG HYDROX/AL HYDROX/SIMETH 30 ML CUP PO PRN (11:14)
[2019-02-07] MEDS ORDERED: ZOLPIDEM 5 MG TAB PO PRN (11:14)
[2019-02-07] MEDS ORDERED: NITROGLYCERIN SL TABS 0.4 MG TAB SUBLINGUAL PRN (11:14)
[2019-02-07] MEDS ORDERED: RX INFO: IV CONTRAST WAS GIVEN 1 EACH MISC MISCELLANE PRN (11:14)
[2019-02-07] MEDS ORDERED: ATROPINE SULFATE 0.1 MG/ML 10ML SYRINGE IV PRN (11:14)
[2019-02-07] MEDS ORDERED: SODIUM CHLORIDE 0.9% 1,000 ML IV SCH (11:15)
[2019-02-07] MEDS: ALPRAZolam 0.25 MG TAB PO PRN ×2 (12:06→22:09)
[2019-02-07] MEDS: CLOPIDOGREL 75 MG TAB PO SCH (12:12)
[2019-02-07] MEDS: FAMOTIDINE 20 MG TAB PO SCH (12:12)
[2019-02-07] MEDS: SODIUM BICARBONATE TAB 650 MG TAB PO SCH ×2 (12:13→19:48)
[2019-02-07] MEDS: PRESERVISION PO SCH ×2 (12:15→17:27)
[2019-02-07] MEDS: RANOLAZINE 500 MG TAB.ER.12H PO SCH ×2 (13:48→19:48)
[2019-02-07 15:10] VITALS: BMI 26.1
--- NOTE | 2019-02-07 15:20 | PN ---
PROGRESS NOTE DATE OF SERVICE: 02/07/2019 This is an 78-year-old woman who was admitted with chest pain, underwent cardiac catheterization and stenting today by Dr. Mena. The patient is being closely monitored in ICU at this time. The patient also had multiple other medical issues including abdominal pain with infrarenal aortic dissection, contrast nephropathy, acute renal failure, and severe mitral regurgitation. PAST MEDICAL HISTORY: Reviewed. REVIEW OF SYSTEMS: CARDIAC SYSTEM: As mentioned earlier. GI: As mentioned earlier. : Negative. NERVOUS SYSTEM: As mentioned earlier. CURRENT MEDICATIONS: 1. Maalox 30 mL q.4 p.r.n. 2. Xanax 0.5 q.6 hours p.r.n. 3. Troponin 0.5 once daily. 4. Plavix 75 mg. 5. Pepcid 20 mg daily. 6. Apresoline 10 mg IV q.4 p.r.n. 7. Toprol-XL 25 mg p.o. daily. 8. ProAmatine 5 mg a.c. t.i.d. 9. Narcan 0.2 q.2 p.r.n. 10.Nitrostat 0.4 sublingual p.r.n. 11.PreserVision. 12.Ranexa 500 mg p.o. b.i.d. 13.Sodium bicarb 650 mg p.o. b.i.d. 14.Coumadin 3 mg p.o. daily. 15.Ambien 5 mg p.o. q.h.s. PHYSICAL EXAM: Patient is alert, oriented x3. Pulse 70, blood pressure 140/52, respiration 14, temperature 97.2, pulse ox 98% on room air. HEENT: Conjunctivae normal. NECK: No jugular venous distension. CARDIOVASCULAR SYSTEM: Ejection systolic murmur. RESPIRATORY: Breath sounds diminished at the bases, a few scattered rhonchi, no crackles. ABDOMEN: Soft, nontender. LEGS: No edema, no swelling. NERVOUS SYSTEM: No focal deficits. LABS: WBC is 4.7, hemoglobin is 10.9, INR is 1.8. ASSESSMENT: 1. Chest pain, possible coronary artery disease, status post cardiac bypass and stenting. 2. Infrarenal aortic dissection, 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 as mentioned earlier. 3. Possible contrast nephropathy. 4. Elevated liver enzymes. 5. Hepatitis of undetermined etiology, possibly drug induced. 6. Severe mitral regurgitation. 7. Atrial fibrillation. 8. Hypertension. 9. Gastroesophageal reflux disease. 10.Elevated LFTs. 11.Coumadin monitoring. 12.Anemia, normocytic anemia of chronic disease. 13.History of deep venous thrombosis. 14.History of gastroesophageal reflux disease. 15.History of carotid stenosis. 16.History of coronary artery disease, coronary artery bypass grafting with stent. 17.History of claustrophobia. 18.History of atrial fibrillation. 19.FULL CODE. RECOMMENDATION: In this 78-year-old woman who presented with multiple medical issues, at this time I recommend to continue current medications, continue symptomatic treatment. Cardiology has performed stenting and ARUN is expected. Otherwise, will continue to monitor continue. Prognosis guarded because of multiple complex medical conditions. See orders for details. MMODL / IJN: [id number] /
[2019-02-07] MEDS: METOPROLOL SUCCINATE (ER) 25 MG TAB.ER.24H PO SCH (15:37)
--- NOTE | 2019-02-07 16:02 | ECHOT ---
TRANSESOPHAGEAL ECHOCARDIOGRAM DATE OF SERVICE: February 07, 2019 PERFORMING PHYSICIAN: Cruz Mena MD, automotive painter. PROCEDURE PERFORMED: Transesophageal echocardiogram. INDICATION: Mitral regurgitation. SEDATION: Conscious sedation was performed with 10 minutes of sedation. PROCEDURE DESCRIPTION: After obtaining an informed consent, explaining the procedure, benefits, risks, complications and alternatives, the patient was brought to the transesophageal echocardiogram suite. A pulse oximetry and heart rate monitors were attached to the patient prior to the procedure. The patient's throat was sprayed using lidocaine locally. Following that, the patient was turned into left lateral position. A bite guard was placed and the patient was then sedated with the above doses of Versed and fentanyl in divided doses. Following that, the transesophageal echocardiogram probe was advanced through the bite guard into the mid esophagus where 2-D echocardiogram images as well as color Doppler images of various cardiac structures were obtained. We evaluated the interatrial septum using 2-D echocardiogram, color Doppler, and contrast study. The procedure was completed. There were no complications. FINDINGS: The left ventricular dimension and systolic function appeared to be within normal limits. The ejection fraction appeared to be in the range of 55% to 60%. The right ventricle appeared to be dilated with normal function. The left atrium is severely dilated. The right atrium is severely dilated. The interatrial septum appeared to be intact. The left atrial appendage appeared to be free from any thrombus. The aortic valve is trileaflet valve without stenosis with trace insufficiency. The mitral valve seems to be thickened with evidence of severe mitral regurgitation with anteriorly directed jet. The vena contracta was measured 0.6 cm. The tricuspid valve showed evidence of severe tricuspid regurgitation. The pulmonary artery systolic pressure was calculated to be 50 mmHg. CONCLUSION: 1. Normal left ventricular dimension and systolic function. 2. Normal right dilated right ventricle with normal function. 3. Severe biatrial enlargement. 4. Intact interatrial septum without any evidence of shunt. 5. Normal left atrial appendage without any evidence of thrombus. 6. Trileaflet aortic valve without stenosis with trace insufficiency. 7. Thickened mitral valve leaflets with evidence of severe mitral regurgitation. The mitral regurgitation quantification was applied with vena contracta of 0.6 cm. 8. Severe tricuspid regurgitation. 9. Moderate pulmonary hypertension. 10.No evidence of pericardial effusion. MMODL / IJN: [id number] /
[2019-02-07] MEDS: WARFARIN 3 MG TAB PO SCH (17:27)
--- NOTE | 2019-02-07 19:59 | CC ---
CARDIAC CATHETERIZATION REPORT . DATE OF SERVICE: February 07, 2019 PERFORMING PHYSICIAN: Cruz Mena M.D. PROCEDURE PERFORMED: 1. Right heart catheterization. 2. Left heart catheterization. 3. Selective left and right coronary angiogram. 4. Left internal mammary artery to LAD angiogram. 5. SVG to ramus intermedius angiogram. 6. SVG to left circumflex angiogram. 7. Radial artery to RCA angiogram. 8. Successful stenting of the mid right coronary artery using 3.5 x 18 mm Xience MARLENE with an excellent angiographic result and reduction of stenosis from 80% to 0%. INDICATION: This is a pleasant 78-year-old female patient who sees Dr. Cuenca as an outpatient in the office, who was admitted to the intensive care unit with shortness of breath. She underwent transthoracic echocardiogram which revealed evidence of moderate to severe mitral regurgitation. Because of that, a ARUN and heart catheterization were advised. The ARUN was performed earlier today and revealed evidence of severe MR and severe TR. APPROACH: Right common femoral vein and right common femoral artery. COMPLICATION: None. LEVEL OF SEDATION: Moderate with sedation length of 60 minutes. PROCEDURE DESCRIPTION: After obtaining an informed consent, the patient was brought to the cardiac landscaping and groundskeeping laborer. The right common femoral vein was cannulated using micropuncture technique, and I placed an 8-Burmese sheath. The right common femoral artery was cannulated using micropuncture technique, and I placed a 6-Burmese sheath in the right common femoral artery. I did right heart catheterization using 6-Burmese swan catheter. After that, I did selective left and right coronary angiogram. That was performed using JL4 and JR4 catheters. The SVG angiogram was performed using the JR4 catheter. The GODINEZ to LAD was performed using the JR4 catheter. After that, I did perform left heart catheterization using 6-Burmese pigtail catheter. Then I did intervene on the RCA. Please see a separate paragraph for that. HEMODYNAMICS: 1. The pulmonary capillary wedge pressure was 15 mmHg. 2. PA pressures were as follows: systolic 53, diastolic of 20, and mean of 35 mmHg. 3. RV pressures were as follows, systolic 53 and end-diastolic of 12 mmHg. 4. The RA pressure was 10 mmHg. 5. The LVEDP was 15 mm Hg. SELECTIVE CORONARY ANGIOGRAM: 1. The left main appeared to have mild disease in the range of 20% only. It bifurcates into left circumflex and left anterior descending artery. 2. The left circumflex is 100% occluded in the midportion. 3. The LAD is 100% occluded in the proximal to midportion. 4. The right coronary artery is calcified and stented. The RCA in the midportion has a tight lesion in the range of 80% to 90%. CORONARY BYPASSES ANGIOGRAM: 1. The GODINEZ to LAD is patent. 2. The SVG to ramus intermedius is patent. 3. The SVG to left circumflex is patent. 4. The radial artery to right coronary artery is patent as well. PCI OF THE RCA: Anticoagulation was initiated using Angiomax. The RCA was engaged using JR 3.5 guide. It was wired using a run-through wire. I did balloon angioplasty using 3.0 x 15 mm balloon before I deployed 3.5 x 18 mm Xience MARLENE where the stent was positioned under fluoroscopy guidance and deployed under 12 atmospheres for 20 seconds with the following angiogram showing excellent results and the procedure was completed without any complication. LEFT VENTRICULOGRAPHY: The left ventriculography was performed in the BOOKER projection and using a power injection. The left ventricle systolic function is normal with evidence of 4+ MR and severely dilated left atrium. CONCLUSION: 1. Moderate pulmonary hypertension. 2. Slightly deviated left ventricular end-diastolic pressure as well as wedge pressure. 3. Severe triple-vessel coronary artery disease. 4. Patent GODINEZ to left anterior descending coronary artery. 5. Patent SVG to ramus intermedius. 6. Patent SVG to left circumflex. 7. Patent SVG to PDA of right coronary artery. 8. Successful stenting of the mid right coronary artery with which is feeding the PLV branch of the RCA. 9. Preserved left ventricular systolic function. 10.4+ MR with severely dilated left atrium. POSTPROCEDURE MANAGEMENT: 1. At this point, dual anti-platelet therapy. 2. Risk factor modifications. 3. The patient might benefit from mitral valve clip as an outpatient. MMODL / IJN: [id number] /
[2019-02-07 20:03] VITALS: RESP 18
[2019-02-08] MEDS: MIDODRINE 5 MG TAB PO SCH ×2 (06:43→12:42)
[2019-02-08] MEDS: PRESERVISION PO SCH (06:45)
[2019-02-08 07:12] LABS: Anisocytosis Slight; Basophils % (A) 0 %; Eosinophils % (A) 1 %; HCT 32.2 % (34.0-46.0); HGB 10.3 gm/dL (11.4-16.0); Hypochromasia Slight; Lymphocytes # (A) 0.7 k/uL (1.0-4.8); Lymphocytes % (A) 14 %; MCH 28.4 pg (25.0-35.0); MCHC 31.8 g/dL (31.0-37.0); MCV 89.2 fL (80.0-100.0); Mean Platelet Volume 6.7; Monocytes # (A) 0.4 k/uL (0-1.0); Monocytes % (A) 8 %; Neutrophils # (A) 3.7 k/uL (1.3-7.7); Neutrophils % (A) 76 %; Platelet Count 208 k/uL (150-450); RBC 3.61 m/uL (3.80-5.40); RDW 16.8 % (11.5-15.5); WBC 4.9 k/uL (3.8-10.6)
[2019-02-08 07:16] LABS: Albumin 2.9 g/dL (3.5-5.0); Calcium 8.4 mg/dL (8.4-10.2); Potassium 4.1 mmol/L (3.5-5.1); Total Bilirubin 0.6 mg/dL (0.2-1.3); Total Protein 5.6 g/dL (6.3-8.2)
[2019-02-08] MEDS: SODIUM BICARBONATE TAB 650 MG TAB PO SCH (08:40)
[2019-02-08] MEDS: RANOLAZINE 500 MG TAB.ER.12H PO SCH (08:40)
[2019-02-08] MEDS: CLOPIDOGREL 75 MG TAB PO SCH (08:40)
[2019-02-08] MEDS: METOPROLOL SUCCINATE (ER) 25 MG TAB.ER.24H PO SCH (08:40)
[2019-02-08] MEDS: FAMOTIDINE 20 MG TAB PO SCH (08:40)
[2019-02-08 08:49] VITALS: TEMP 98.1
--- NOTE | 2019-02-08 10:21 | P.PN ---
Subjective Progress Note Date: 02/08/19 Principal diagnosis: transaminitis Presently feels well. LFTs improved; Total bilirubin 0.6. AST 44. ALT 119. AP 266. History of CABG, Heart catheterization ARUN completed yesterday moderate pulmonary hypertension, severe mitral regurgitation severe triple-vessel disease, successful stent RCA. Feels well. Anticipating discharge. Objective - Vital Signs Vital signs: Vital Signs Temp 98.1 F 02/08/19 08:43 Pulse 83 02/08/19 08:43 Resp 18 02/08/19 08:43 BP 104/55 02/08/19 08:43 Pulse Ox 92 L 02/08/19 08:43 Intake & Output 02/07/19 02/08/19 02/08/19 18:59 06:59 18:59 Intake Total 1031.57 1000 240 Output Total 675 Balance 356.57 1000 240 Weight 66.9 kg Intake: IV 781.57 .9 610 Intake, IV Titration 1000 Amount Sodium Chloride 0.9% 1, 1000 000 ml @ 75 mls/hr IV . [id number] [facility] Rx#:[id number] Oral 250 240 Output: Urine 675 Other: Voiding Method Indwelling Catheter Toilet # Voids 1 - Exam General appearance: The patient is alert, oriented, in no acute distress. HET: Head is normocephalic and atraumatic. Pupils are equal and reactive. Oropharynx is clear without lesions. Neck: Supple without lymphadenopathy. Trachea midline. Heart: S1 S2. Regular rate and rhythm. Lungs: No crackles or wheezes are heard. Abdomen: Soft, nontender, nondistended with bowel sounds. No peritoneal signs. No palpable organomegaly or masses. Extremities: Normal skin color and turgor. No cyanosis, rash, ulceration, clubbing, or edema. Radial and pedal pulses are 2/4 bilaterally. Neurological: No focal deficits. Strength and sensation are grossly intact. - Labs CBC & Chem 7: 02/08/19 06:27 02/08/19 06:27 Labs: Abnormal Lab Results - Last 24 Hours (Table) 02/08/19 02/08/19 Range/Units 06:27 06:27 RBC 3.61 L (3.80-5.40) m/uL Hgb 10.3 L (11.4-16.0) gm/dL Hct 32.2 L (34.0-46.0) % RDW 16.8 H (11.5-15.5) % Lymphocytes # 0.7 L (1.0-4.8) k/uL Chloride 111 H (98-107) mmol/L Carbon Dioxide 21 L (22-30) mmol/L AST 44 H (14-36) U/L ALT 119 H (9-52) U/L Alkaline Phosphatase 266 H (38-126) U/L Total Protein 5.6 L (6.3-8.2) g/dL Albumin 2.9 L (3.5-5.0) g/dL Assessment and Plan (1) Transaminitis Narrative/Plan: Biochemically improved suspect cardiac component elevation. Current Visit: Yes Status: Acute Code(s): R74.0 - NONSPEC ELEV OF LEVELS OF TRANSAMNS & LACTIC ACID DEHYDRGNSE SNOMED Code(s): 602100066 (2) GERD (gastroesophageal reflux disease) Current Visit: Yes Status: Acute Code(s): K21.9 - GASTRO-ESOPHAGEAL REFLUX DISEASE WITHOUT ESOPHAGITIS SNOMED Code(s): 201334166 (3) DVT (deep venous thrombosis) Current Visit: Yes Status: Acute Code(s): I82.409 - ACUTE EMBOLISM AND THOMBOS UNSP DEEP VN UNSP LOWER EXTREMITY SNOMED Code(s): 971323647 (4) Atrial fibrillation Current Visit: Yes Status: Acute Code(s): I48.91 - UNSPECIFIED ATRIAL FIBRILLATION SNOMED Code(s): 17986077 (5) Warfarin-induced coagulopathy Current Visit: Yes Status: Acute Code(s): D68.32 - HEMORRHAGIC DISORD D/T EXTRINSIC CIRCULATING ANTICOAGULANTS; T45.515A - ADVERSE EFFECT OF ANTICOAGULANTS, INITIAL ENCOUNTER SNOMED Code(s): 95128354 (6) Aneurysm of infrarenal abdominal aorta Current Visit: Yes Status: Acute Code(s): I71.4 - ABDOMINAL AORTIC ANEURYSM, WITHOUT RUPTURE SNOMED Code(s): 882135189 (7) Mitral regurgitation Current Visit: Yes Status: Acute Code(s): I34.0 - NONRHEUMATIC MITRAL (VALVE) INSUFFICIENCY SNOMED Code(s): 97065536 Plan: 1. We'll follow on an as-needed basis. Discharge per medicine and cardiology. Recommend repeat CMP in 1-2 weeks and follow-up PCP is advised. Assessment and plan a care discussed with Dr. Bedolla
--- NOTE | 2019-02-08 11:28 | P.PN ---
Subjective Patient is seen in follow-up for acute kidney injury. Creatinine peaked at 2.6 at this admission and is down to 0.95 today. She is nonoliguric. No vomiting or diarrhea. Hemodynamically stable. No chest pain or shortness of breath. Patient underwent cardiac catheterization with a stent placement to the right coronary artery on February 07. Vital signs are stable. General: The patient appeared well nourished and normally developed. HEENT: Head exam is unremarkable. Neck is without jugular venous distension. LUNGS: Lungs are clear to auscultation and percussion. Breath sounds decreased. HEART: Rate and Rhythm are regular. First and second heart sounds normal. No murmurs, rubs or gallops. ABDOMEN: Abdominal exam reveals normal bowel sounds. Non-tender and non- distended. No evidence of peritonitis. EXTREMITITES: No clubbing, cyanosis, or edema. Objective - Vital Signs Vital signs: Vital Signs Temp 98.1 F 02/08/19 08:43 Pulse 83 02/08/19 08:43 Resp 18 02/08/19 08:43 BP 104/55 02/08/19 08:43 Pulse Ox 92 L 02/08/19 08:43 Intake & Output 02/07/19 02/08/19 02/08/19 18:59 06:59 18:59 Intake Total 1031.57 1000 240 Output Total 675 Balance 356.57 1000 240 Weight 66.9 kg Intake: IV 781.57 .9 610 Intake, IV Titration 1000 Amount Sodium Chloride 0.9% 1, 1000 000 ml @ 75 mls/hr IV . [id number] [facility] Rx#:[id number] Oral 250 240 Output: Urine 675 Other: Voiding Method Indwelling Catheter Toilet # Voids 1 - Labs CBC & Chem 7: 02/08/19 06:27 02/08/19 06:27 Labs: Abnormal Lab Results - Last 24 Hours (Table) 02/08/19 02/08/19 Range/Units 06:27 06:27 RBC 3.61 L (3.80-5.40) m/uL Hgb 10.3 L (11.4-16.0) gm/dL Hct 32.2 L (34.0-46.0) % RDW 16.8 H (11.5-15.5) % Lymphocytes # 0.7 L (1.0-4.8) k/uL Chloride 111 H (98-107) mmol/L Carbon Dioxide 21 L (22-30) mmol/L AST 44 H (14-36) U/L ALT 119 H (9-52) U/L Alkaline Phosphatase 266 H (38-126) U/L Total Protein 5.6 L (6.3-8.2) g/dL Albumin 2.9 L (3.5-5.0) g/dL Assessment and Plan Plan: Assessment: 1. Acute kidney injury secondary to ATN secondary to hypotension. Creatinine peaked at 2.68 this admission and is down to 0.98 today. Patient's creatinine in May 2018 was 0.8. 2. Diastolic CHF with severe tricuspid regurgitation, moderate to severe mitral regurgitation and severe pulmonary hypertension. 3. Infrarenal mild aortic ectasia. Patient has been seen by vascular surgery. 4. Metabolic acidosis secondary to acute kidney injury and IV fluids. Better. Maintained on oral sodium bicarbonate. 5. Coronary artery disease status post cardiac catheterization on February 07 with stent placement to the right coronary artery. Plan: Encourage oral intake. Avoid nephrotoxins. Stable to be discharged home from nephrology standpoint. Repeat BMP 2-3 days postdischarge and follow up outpatient in the next 1 week.
[2019-02-08 12:24] VITALS: BP 157/74; PULSE 79
[2019-02-08] MEDS: SODIUM CHLORIDE 0.9% 1,000 ML IV SCH (12:41)
[2019-02-08] MEDS ORDERED: ASPIRIN 81 MG PO SCH (14:30)
--- NOTE | 2019-02-08 15:17 | P.PN ---
Subjective Progress Note Date: 02/08/19 This is an 78-year-old female patient with a past medical history significant for CAD and status post revascularization, paroxysmal atrial fibrillation, as well as multiple comorbid conditions, who initially presented to the hospital with abdominal discomfort and underwent a computed tomography scan of the abdomen and pelvis which revealed possible dissected infrarenal abdominal aortic aneurysm. She was seen by vascular surgeon who recommended conservative medical approach at this point. The echocardiogram revealed moderate to severe mitral regurgitation and also pulmonary hypertension. Patient was taken to the cardiac catheterization lab yesterday underwent successful stenting of the mid right coronary artery. She also underwent a ARUN which revealed severe mitral regurgitation and severe tricuspid regurgitation. Patient was seen and examined this morning, hemodynamically stable. White blood cell count 4.9, hemoglobin 10.3, platelet count 208. Sodium 140, potassium 4.1, BUN 17 and creatinine 0.9. Objective - Vital Signs Vital signs: Vital Signs Temp 98.1 F 02/08/19 08:43 Pulse 79 02/08/19 12:00 Resp 18 02/08/19 12:00 BP 157/74 02/08/19 12:00 Pulse Ox 94 L 02/08/19 12:00 Intake & Output 02/07/19 02/08/19 02/08/19 18:59 06:59 18:59 Intake Total 1031.57 1000 462 Output Total 675 Balance 356.57 1000 462 Weight 66.9 kg Intake: IV 781.57 .9 610 Intake, IV Titration 1000 Amount Sodium Chloride 0.9% 1, 1000 000 ml @ 75 mls/hr IV . [id number] [facility] Rx#:[id number] Oral 250 462 Output: Urine 675 Other: Voiding Method Indwelling Catheter Toilet # Voids 1 2 - Exam PHYSICAL EXAMINATION: GENERAL: 78-year-old female in no acute distress at the time of my examination HEENT: Head is atraumatic, normocephalic. Pupils equal, round. Sclera anicteric. Conjunctiva are clear. Mucous membranes of the mouth are moist. Neck is supple. There is no elevated jugular venous pressure. No carotid bruit is heard. HEART EXAMINATION: Heart S1 S2 1 systolic murmur is heard CHEST EXAMINATION: Lungs are clear to auscultation and precussion. No chest wall tenderness is noted on palpation or with deep breathing. ABDOMEN: Soft, nontender. Bowel sounds are heard. No organomegaly noted. EXTREMITIES: 2+ peripheral pulses with no evidence of peripheral edema and no calf tenderness noted. Right groin soft, no evidence of any hematoma. NEUROLOGIC patient is awake, alert and oriented 3 . . - Labs CBC & Chem 7: 02/08/19 06:27 02/08/19 06:27 Labs: Abnormal Lab Results - Last 24 Hours (Table) 02/08/19 02/08/19 Range/Units 06:27 06:27 RBC 3.61 L (3.80-5.40) m/uL Hgb 10.3 L (11.4-16.0) gm/dL Hct 32.2 L (34.0-46.0) % RDW 16.8 H (11.5-15.5) % Lymphocytes # 0.7 L (1.0-4.8) k/uL Chloride 111 H (98-107) mmol/L Carbon Dioxide 21 L (22-30) mmol/L AST 44 H (14-36) U/L ALT 119 H (9-52) U/L Alkaline Phosphatase 266 H (38-126) U/L Total Protein 5.6 L (6.3-8.2) g/dL Albumin 2.9 L (3.5-5.0) g/dL Assessment and Plan Plan: Assessment and plan #1 abdominal discomfort #2 paroxysmal atrial fibrillation #3 severe mitral regurgitation and severe tricuspid regurg by ARUN #4 pulmonary hypertension #5 stable infrarenal aortic dissection #6 multiple comorbid conditions #7 status post RCA stenting Plan From cardiology's perspective, patient may be able to be discharged home today, follow-up appointment will be made with Dr. Cuenca in the office post discharge . DNP note has been reviewed, I agree with a documented findings and plan of care. Patient was seen and examined.
--- NOTE | 2019-02-09 08:24 | CDI ---
Documentation Clarification Form Date: 02/08/2019 12:27:00 PM From: Shayla Dueñas CCS, CCDS Admit Date: 02/03/2019 3:06:00 PM Patient Name: Stella Sen Visit Number: [id number] Discharge Date: 02/08/2019 3:37:00 PM ATTENTION: The Clinical Documentation Specialists (CDI) and [facility] Coding Staff appreciate your assistance in clarifying documentation. Please respond to the clarification below the line at the bottom and electronically sign. The CDI & [facility] Coding staff will review the response and follow-up if needed. Please note: Queries are made part of the Legal Health Record. If you have any questions, please contact the author of this message via ITS. Dr. Tong Herrera: Per the History & Physical, the patient was on Protonix but drug was discontinued due to chronic kidney disease. Per the vascular surgeon's progress notes: Acute on chronic kidney disease. History/Risk Factors: Atrial Fibrillation, CAD status post CABG & coronary stents, Angina, DVT, GERD, Hypertension, Stroke with left eye disturbance. Clinical Indicators: Patient was admitted with burning epigastric chest pain, diagnosed with possible CAD status previous CABG and C with MARLENE stent this admission. Also has aortic dissection, possible contrast nephropathy, possible drug induced hepatitis, severe mitral regurgitation and GERD. Per the nephrology notes: SUNIL secondary to ATN secondary to hypotension. BUN: 29 - 35 - 46 - 49 - 41 - 25 - 19 - (17) Creatinine: 1.50^ - 1.36^ - 2.68^ - 2.61^ - 1.96^ - 1.22^ - (0.98) - (0.95) GFR: 33 - 16 - 42 - 55 - 57 Patients Baseline BUN/CR/GFR: Unknown or not documented. Treatment: IV Lasix, IV fluid bolus, IV Pepcid, Coumadin started 02/04, IV Apresoline In order to capture the severity of condition, please clarify if the condition signifies: CKD Stage 1 (GFR > 90) CKD Stage 2 (GFR 60-89) CKD Stage 3 (GFR 30-59) CKD Stage 4 (GFR 15-29) CKD Stage 5 (GFR <15) CKD ruled out Other, please specify Unable to determine AKI, no CKD MTDD
--- NOTE | 2019-02-09 08:55 | P.DS ---
Providers Date of admission: 02/03/19 15:06 Expected date of discharge: 02/08/19 Attending physician: Vipul Cornejo Consults: 02/02/19 03:48 Consult Physician Routine Consulting Provider: Cruz Mena Consult Reason/Comments: CHF exacerbation Do you want consulting provider notified?: Yes 02/04/19 00:38 Consult Physician Urgent Consulting Provider: Galileo Joy Consult Reason/Comments: ICU Managment Do you want consulting provider notified?: Yes, Notify in am 02/04/19 00:39 Consult Physician Routine Consulting Provider: Tho Uriostegui Consult Reason/Comments: possible dissection Do you want consulting provider notified?: Yes 02/04/19 11:26 Consult Physician Routine Consulting Provider: Kathi Gregorio Consult Reason/Comments: Renal disease s/p contrast dye Do you want consulting provider notified?: Yes 02/07/19 11:14 Consult Physician Routine Consulting Provider: [facility] Consult Reason/Comments: Post Interventional patient Do you want consulting provider notified?: Already Contacted Primary care physician: Christopher Munoz Hospital Course: Final diagnosis Chest pain, possibly coronary artery disease, status post cardiac bypass and stenting Infrarenal aortic dissection, 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 Possible contrast nephropathy Elevated liver enzymes Hepatitis of undetermined etiology, 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 History of present illness This is an 78-year-old woman who underwent a ARUN and stenting yesterday. ARUN shows severe mitral regurgitation and severe tricuspid regurgitation with pulmonary hypertension and a stent was placed in the RCA. Patient is doing well and denies any chest pain, shortness of breath, or palpitations at this time. Patient denies any abdominal discomfort at this time stating that it has subsided. Patient is tolerating diet and denies any nausea or vomiting. Patient's LFTs are improving and patient was cleared from GI's perspective and follow-up with primary care provider in the outpatient setting. Patient has remained afebrile. Patient was resumed on oral anticoagulation and will have repeat PT/INR in 2-3 days. Patient is looking forward to going home today. Patient is currently stable with much improvement. On exam vital signs are stable. Blood pressure is 157/74, respirations are 18, pulse is 79, temp is 98.1F, oxygen saturation is 94% on room air. Cardio S1 and S2 are normal with an ejection systolic murmur. Respiratory system shows diminished breath sounds at the bases with a few scattered rhonchi and no crackles noted. The abdomen is soft and non-tender. Nervous system shows no focal deficits and gait is steady. Please refer to medication reconciliation sheet for a list of medications. Patient Condition at Discharge: Stable Plan - Discharge Summary Discharge Rx Participant: No New Discharge Prescriptions: New Aspirin 81 mg PO DAILY #30 chew Continue ALPRAZolam [Xanax] 0.25 mg PO TID PRN PRN Reason: Anxiety Spironolactone [Aldactone] 12.5 mg PO DAILY Clopidogrel [Plavix] 75 mg PO DAILY #30 tab Warfarin Sodium 3 mg PO DAILY Metoprolol Succinate [Toprol XL] 25 mg PO DAILY Ranolazine [Ranexa] 500 mg PO BID Irbesartan [Avapro] 75 mg PO DAILY #30 tab Amiodarone [Cordarone] 100 mg PO DAILY #30 tab Isosorbide Mononitrate [Isosorbide Mononitrate ER] 30 mg PO DAILY #30 tab.er.24h Atorvastatin Calcium [Lipitor] 80 mg PO HS #30 tablet Nitroglycerin Sl Tabs [Nitrostat] 0.4 mg SUBLINGUAL Q5M PRN #25 tab PRN Reason: Chest Pain Discharge Medication List ALPRAZolam [Xanax] 0.25 mg PO TID PRN 03/25/14 [History] Spironolactone [Aldactone] 12.5 mg PO DAILY 07/05/17 [History] Clopidogrel [Plavix] 75 mg PO DAILY #30 tab 02/22/18 [Rx] Metoprolol Succinate [Toprol XL] 25 mg PO DAILY 02/02/19 [History] Ranolazine [Ranexa] 500 mg PO BID 02/02/19 [History] Warfarin Sodium 3 mg PO DAILY 02/02/19 [History] Amiodarone [Cordarone] 100 mg PO DAILY #30 tab 02/08/19 [Rx] Aspirin 81 mg PO DAILY #30 chew 02/08/19 [Rx] Atorvastatin Calcium [Lipitor] 80 mg PO HS #30 tablet 02/08/19 [Rx] Irbesartan [Avapro] 75 mg PO DAILY #30 tab 02/08/19 [Rx] Isosorbide Mononitrate [Isosorbide Mononitrate ER] 30 mg PO DAILY #30 tab.er.24h 02/08/19 [Rx] Nitroglycerin Sl Tabs [Nitrostat] 0.4 mg SUBLINGUAL Q5M PRN #25 tab 02/08/19 [Rx] Follow up Appointment(s)/Referral(s): Raleigh Cuenca MD [STAFF PHYSICIAN] - 02/21/19 11:00 am (Tuesday with Marci Arreguin NP) Tho Uriostegui DO [STAFF PHYSICIAN] - 02/27/19 2:30 pm (Tuesday) Christopher Munoz MD [Primary Care Provider] - 02/13/19 9:15 am (Tuesday with Kaitlin AREVALO) Tong Herrera DO [STAFF PHYSICIAN] - 2 Weeks Ambulatory/Diagnostic Orders: Basic Metabolic Panel [LAB.AMB] Time Frame: 2 Days, Location: None Selected Prothrombin Time INR [LAB.AMB] Time Frame: 2 Days, Location: None Selected Patient Instructions/Handouts: *Surgery [facility] - After Heart Catheterization - [facility] Instructions, Left Heart Catheterization (DC) Activity/Diet/Wound Care/Special Instructions: BMP either Tuesday or Tuesday per Dr Herrera Activity limited until follow up continue heart healthy diet Patient is to have a BMP and PTINR redrawn on tuesday Discharge Disposition: HOME SELF-CARE
--- NOTE | 2019-02-12 09:15 | CDI ---
Documentation Clarification Form Date: 02/12/2019 9:13:00 AM From: Audelia Panda Phone: If you have a question regarding this query, please contact Kanwal Coleman at [phone] between 8am and 5pm. Admit Date: 02/03/2019 3:06:00 PM Patient Name: Stella Sen Visit Number: [id number] Discharge Date: 02/08/2019 3:37:00 PM ATTENTION: The Clinical Documentation Specialists (CDI) and [facility] Coding Staff appreciate your assistance in clarifying documentation. Please respond to the clarification below the line at the bottom and electronically sign. The CDI & [facility] Coding staff will review the response and follow-up if needed. Please note: Queries are made part of the Legal Health Record. If you have any questions, please contact the author of this message via ITS. Dr. Shanika Yusuf The patient presented with chest pain and abdominal pain. The patient was found to have a tight lesion in the midportion of the RCA which was stented. History/Risk Factors: CAD, CABG, coronary artery stents, CHF exacerbation, dissected abdominal aneurysm. Clinical Indicators: Chest pain Lab findings: Troponin 0.017, creatinine 1.50, AST 188, ALT 186, Alk phos 367, BNP 4270 Radiology findings: CXR: bilateral infiltrate and pleural effusion stable, corretlate for CHF otherwise consider pneumonia. Vital Signs: T. 98.3, P. 78, R. 18, BP 136/81 Treatment: Stenting of the RCA In your professional opinion, can you please clarify the type of chest pain? Unstable angina Ischemic chest pain Other, please specify Unable to determine Unstable angina MTDD
== END 2019-02-08 15:37 | disposition home or self-care (01) | DRG 246 ==
LOC: EC 02:48 → 3SCARD 03:49 → OBSVTOIN 02-03 15:06 → 2SICU 02-04 01:27 → 3SCARD 02-07 17:08
PROVIDERS: ADMIT Internal Medicine; ATTEND Internal Medicine
PROC: B2131ZZ Fluoroscopy of Multiple Coronary Artery Bypass Grafts using Low Osmolar Contrast (ICD-10-PCS; 2019-02-07)
PROC: B2111ZZ Fluoroscopy of Multiple Coronary Arteries using Low Osmolar Contrast (ICD-10-PCS; 2019-02-07)
PROC: B2151ZZ Fluoroscopy of Left Heart using Low Osmolar Contrast (ICD-10-PCS; 2019-02-07)
PROC: B246ZZ4 Ultrasonography of Right and Left Heart, Transesophageal (ICD-10-PCS; 2019-02-07)
PROC: 027034Z Dilation of Coronary Artery, One Artery with Drug-eluting Intraluminal Device, Percutaneous Approach (ICD-10-PCS; principal; 2019-02-07 08:45)
PROC: 4A023N7 Measurement of Cardiac Sampling and Pressure, Left Heart, Percutaneous Approach (ICD-10-PCS; 2019-02-07 09:29)
DX: I25.110 Atherosclerotic heart disease of native coronary artery with unstable angina pectoris (principal); I50.33 Acute on chronic diastolic (congestive) heart failure; I71.00 Dissection of unspecified site of aorta; N17.0 Acute kidney failure with tubular necrosis; E87.2 Acidosis; I13.0 Hypertensive heart and chronic kidney disease with heart failure and stage 1 through stage 4 chronic kidney disease, or unspecified chronic kidney disease; I95.9 Hypotension, unspecified; I27.20 Pulmonary hypertension, unspecified; I08.1 Rheumatic disorders of both mitral and tricuspid valves; K83.8 Other specified diseases of biliary tract; I65.29 Occlusion and stenosis of unspecified carotid artery; D63.8 Anemia in other chronic diseases classified elsewhere; I48.2 Chronic atrial fibrillation; K75.9 Inflammatory liver disease, unspecified; N14.1 Nephropathy induced by other drugs, medicaments and biological substances; I69.998 Other sequelae following unspecified cerebrovascular disease; I73.9 Peripheral vascular disease, unspecified; E78.5 Hyperlipidemia, unspecified; F40.240 Claustrophobia; I71.4 Abdominal aortic aneurysm, without rupture; K21.9 Gastro-esophageal reflux disease without esophagitis; K44.9 Diaphragmatic hernia without obstruction or gangrene; M71.9 Bursopathy, unspecified; M35.3 Polymyalgia rheumatica; R79.1 Abnormal coagulation profile; T50.8X5A Adverse effect of diagnostic agents, initial encounter; H53.8 Other visual disturbances; M54.30 Sciatica, unspecified side; Z79.01 Long term (current) use of anticoagulants; Z79.02 Long term (current) use of antithrombotics/antiplatelets; Z79.899 Other long term (current) drug therapy; Z86.718 Personal history of other venous thrombosis and embolism; Z95.1 Presence of aortocoronary bypass graft; Z95.5 Presence of coronary angioplasty implant and graft; Z90.710 Acquired absence of both cervix and uterus; Z90.49 Acquired absence of other specified parts of digestive tract; Z85.828 Personal history of other malignant neoplasm of skin; Z87.11 Personal history of peptic ulcer disease; Z98.42 Cataract extraction status, left eye; Z98.41 Cataract extraction status, right eye; Z96.1 Presence of intraocular lens; Z82.49 Family history of ischemic heart disease and other diseases of the circulatory system
CPT/HCPCS: 36415; 71045; 71260; 74160; 74174; 74181; 76705; 80048; 80053; 80074; 81001; 82248; 83735; 83880; 84075; 84450; 84460; 84484; 85025; 85027; 85610; 85730; 87324; 93005; 93306; 93312; 93320; 93325; 93461; 99285; C1874

== ENCOUNTER 2019-02-14 19:24 | Observation (INO) | payer MEDICARE, BC ==
[2019-02-14] MEDS ORDERED: ONDANSETRON 4 MG/2 ML VIAL IVP STA (20:11)
[2019-02-14] MEDS ORDERED: SODIUM CHLORIDE 0.9% 500 ML 500 ML IV STA (20:11)
[2019-02-14] MEDS ORDERED: MORPHINE SULFATE 4 MG/ML SYRINGE IVP STA (20:12)
[2019-02-14 20:49] LABS: Anisocytosis Slight; Basophils % (A) 0 %; Eosinophils % (A) 1 %; HCT 34.7 % (34.0-46.0); HGB 10.7 gm/dL (11.4-16.0); Hypochromasia Slight; Lymphocytes # (A) 1.4 k/uL (1.0-4.8); Lymphocytes % (A) 17 %; MCH 27.2 pg (25.0-35.0); MCHC 30.8 g/dL (31.0-37.0); MCV 88.5 fL (80.0-100.0); Mean Platelet Volume 6.6; Monocytes # (A) 0.8 k/uL (0-1.0); Monocytes % (A) 9 %; Neutrophils % (A) 71 %; Platelet Count 284 k/uL (150-450); RBC 3.92 m/uL (3.80-5.40); RDW 16.8 % (11.5-15.5); WBC 8.5 k/uL (3.8-10.6)
[2019-02-14 20:55] LABS: INR 3.1 (<1.2); Partial Thromboplastin Time 35.2 sec (22.0-30.0); Prothrombin Time 30.3 sec (9.0-12.0)
[2019-02-14 20:59] LABS: Albumin 3.9 g/dL (3.5-5.0); Magnesium 2.3 mg/dL (1.6-2.3); Potassium 4.4 mmol/L (3.5-5.1); Total Bilirubin 0.7 mg/dL (0.2-1.3); Total Protein 6.9 g/dL (6.3-8.2)
--- NOTE | 2019-02-14 21:22 | XR ---
EXAMINATION TYPE: XR chest 2V DATE OF EXAM: 02/14/2019 COMPARISON: 02/04/2019 HISTORY: Chest pain TECHNIQUE: Frontal and lateral views of the chest are obtained. FINDINGS: Heart is enlarged. There are sternal wires. There is pulmonary vascular congestion. There are chest leads. There is some blunting of the costophrenic angles. IMPRESSION: Congestive heart failure with pleural effusions. Pulmonary edema is the same or slightly improved compared to last exam.
--- NOTE | 2019-02-14 21:58 | ED ---
Chest Pain HPI - General Chief Complaint: Chest Pain Stated Complaint: Chest Pain Time Seen by Provider: 02/14/19 19:52 Source: patient Mode of arrival: wheelchair Limitations: no limitations - History of Present Illness Initial Comments: Patient is an 78-year-old female presenting to the emergency Department with complaints of chest pain since this morning. Patient states she recently had a stent placed on 02/06/2019 and has been doing great since then. Patient states she woke up early this morning with a burning sensation in the middle of her ch est and the pain has just been increasing since then. Patient describes the pain as sharp and burning and rates it 7/10. Patient denies any radiation of the pain. Patient did try to take Pepcid and Protonix without relief of pain. Patient took 2 nitros at home which did not improve symptoms. Patient denies any shortness of breath, fever, chills, nausea, vomiting, diarrhea. No other complaints at this time. - Related Data Home Medications Medication Instructions Recorded Confirmed ALPRAZolam [Xanax] 0.25 mg PO TID PRN 03/25/14 02/14/19 Spironolactone [Aldactone] 12.5 mg PO DAILY 07/05/17 02/14/19 Metoprolol Succinate [Toprol XL] 25 mg PO DAILY 02/02/19 02/14/19 Ranolazine [Ranexa] 500 mg PO BID 02/02/19 02/14/19 Warfarin Sodium 3 mg PO DAILY 02/02/19 02/14/19 Pantoprazole Sodium [Protonix] 40 mg PO DAILY 02/14/19 02/14/19 Previous Rx's Medication Instructions Recorded Clopidogrel [Plavix] 75 mg PO DAILY #30 tab 02/22/18 Amiodarone [Cordarone] 100 mg PO DAILY #30 tab 02/08/19 Aspirin 81 mg PO DAILY #30 chew 02/08/19 Atorvastatin Calcium [Lipitor] 80 mg PO HS #30 tablet 02/08/19 Irbesartan [Avapro] 75 mg PO DAILY #30 tab 02/08/19 Isosorbide Mononitrate [Isosorbide 30 mg PO DAILY #30 tab.er.24h 02/08/19 Mononitrate ER] Nitroglycerin Sl Tabs [Nitrostat] 0.4 mg SUBLINGUAL Q5M PRN #25 tab 02/08/19 Allergies Allergy/AdvReac Type Severity Reaction Status Date / Time No Known Allergies Allergy Verified 02/14/19 20:09 Review of Systems ROS Statement: Those systems with pertinent positive or pertinent negative responses have been documented in the HPI. ROS Other: All systems not noted in ROS Statement are negative. EKG Findings - EKG Comments: EKG Findings:: Sinus rhythm with first-degree AV block. Nonspecific T-wave abnormality, prolonged QT. 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 Past Anesthesia/Blood Transfusion Reactions: No Reported Reaction Additional Past Anesthesia/Blood Transfusion Reaction / Comment(s): CLAUSTROPHOBIA Date of Last Stent Placement:: 2017 Past Psychological History: No Psychological Hx Reported Smoking Status: Never smoker Past Alcohol Use History: None Reported Past Drug Use History: None Reported - Past Family History Mother Family Medical History: Myocardial Infarction (NH) Additional Family Medical History / Comment(s): heart PROBLEMS Father Additional Family Medical History / Comment(s): HEART PROBLEMS General Exam - General Exam Comments Initial Comments: GENERAL: Well-appearing, well-nourished and in no acute distress, appears uncomfortable. HEAD: Atraumatic, normocephalic. EYES: Pupils equal round and reactive to light, extraocular movements intact, sclera anicteric, conjunctiva are normal. ENT: TMs normal, nares patent, oropharynx clear without exudates. Moist mucous membranes. NECK: Normal range of motion, supple without lymphadenopathy or JVD. LUNGS: Breath sounds clear to auscultation bilaterally and equal. No wheezes rales or rhonchi. HEART: Regular rate and rhythm, murmur present,. No rubs or gallops. ABDOMEN: Soft, nontender, normoactive bowel sounds. No guarding, no rebound. No masses appreciated. : Deferred EXTREMITIES: Normal range of motion. Mild, bilateral lower extremity edema. No clubbing or cyanosis. NEUROLOGICAL: Cranial nerves II through XII grossly intact. Normal speech, normal gait. PSYCH: Normal mood, normal affect. SKIN: Warm, Dry, normal turgor, no rashes or lesions noted. 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 Patient had a heart stent placed on 02/06/2019 without complication. Patient states pain started early this morning. Describes the pain as burning and sharp without radiation. Patient tried taking Protonix, Pepcid, nitro without relief of pain. Patient denies shortness of breath, fever, chills, nausea, vomiting, diarrhea. Upon arrival, vital signs stable, afebrile. No tenderness to palpation of the sternum or chest wall. Patient has mild bilateral lower leg edema. Heart murmur present. EKG is comparable to her last one 1 week ago. CBC is within normal limits, coags are slightly elevated, INR is 2.1. Troponin is normal. Liver enzymes are slightly elevated however she has had elevation in the past. UA is pending at this time. Case discussed with Dr. Melara. Patient will be admitted for observation. Patient was accepted by Dr. Yusuf. Patient is in agreement with this plan. Disposition Clinical Impression: Chest pain Disposition: ADMITTED IP TO THIS HOSP Condition: Stable Is patient prescribed a controlled substance at d/c from ED?: No Decision Date: 02/14/19 Decision Time: 22:54
[2019-02-14] MEDS ORDERED: ACETAMINOPHEN TAB 325 MG TAB PO PRN (22:54)
[2019-02-14] MEDS ORDERED: MORPHINE SULFATE 4 MG/ML SYRINGE IV PRN (22:54)
[2019-02-14] MEDS ORDERED: NALOXONE 0.4 MG/ML 1 ML VIAL IV PRN (22:54)
[2019-02-14] MEDS ORDERED: ONDANSETRON 4 MG/2 ML VIAL IVP PRN (22:54)
[2019-02-14] MEDS ORDERED: traMADol 50 MG TAB PO PRN (22:54)
[2019-02-14] MEDS ORDERED: SODIUM CHLORIDE 0.9% 1,000 ML IV SCH (23:00)
[2019-02-15] MEDS ORDERED: ALPRAZolam 0.25 MG TAB PO PRN (01:13)
[2019-02-15] MEDS ORDERED: NITROGLYCERIN SL TABS 0.4 MG TAB SUBLINGUAL PRN (01:13)
[2019-02-15 08:51] VITALS: RESP 16
[2019-02-15] MEDS ORDERED: LOSARTAN 25 MG TAB PO SCH (09:00)
[2019-02-15] MEDS ORDERED: ISOSORBIDE MONONITRATE ER 30 MG TAB.ER.24H PO SCH (09:00)
[2019-02-15] MEDS ORDERED: CLOPIDOGREL 75 MG TAB PO SCH (09:00)
[2019-02-15] MEDS ORDERED: ASPIRIN 81 MG PO SCH (09:00)
[2019-02-15] MEDS ORDERED: METOPROLOL SUCCINATE (ER) 25 MG TAB.ER.24H PO SCH (09:00)
[2019-02-15] MEDS ORDERED: RANOLAZINE 500 MG TAB.ER.12H PO SCH (09:00)
[2019-02-15] MEDS ORDERED: AMIODARONE 100 MG TAB PO SCH (09:00)
[2019-02-15] MEDS ORDERED: PANTOPRAZOLE 40 MG TABLET PO SCH ×2 (09:00→17:30)
[2019-02-15] MEDS ORDERED: SPIRONOLACTONE 25 MG TAB PO SCH (09:00)
[2019-02-15] MEDS ORDERED: MAG HYDROX/AL HYDROX/SIMETH 30 ML, HYOSCYAMINE ELIXIR 10 ML, CIMETIDINE HCL 300 MG, LID... PO ONE ×4 (09:01)
--- NOTE | 2019-02-15 10:31 | P.CRDCN ---
History of Present Illness History of present illness: This is a pleasant 78-year-old female past medical history significant for paroxysmal atrial fibrillation on group home anti-coagulation, coronary artery disease s/p bypass grafting and recent stent placement to the RCA 02/07/2019, hypertension and dyslipidemia. She follows in the office with Dr. Cuenca. We have been asked to see her in consultation for chest pain. She was just discharged home from a lengthy stay in the hospital undergoing successful stent placement to the RCA. During that admission she was also found to have a dissected infrarenal abdominal aortic aneurysm that was treated medically per vascular surgery. She also underwent a ARUN revealing severe MR and TR with preserved LV systolic function ejection fraction 55-60%. She returned to the hospital with symptoms of burning in the epigastric region all day yesterday refractory to pepcid, protonic and SL nitro. The pain did not radiate to the arm, back, neck or jaw. There was no associated symptoms of shortness of breath, dizziness, palpitations, nausea, vomiting or diaphoresis. No specific aggravating or alleviating factors. The pain has subsided since admission to the hospital. She is seen and examined resting comfortably in bed in no acute distress. EKG reveals sinus mechanism, first-degree AV block, incomplete left bundle branch block and nonspecific flattened T waves inferiorly. Heart rate is 74. No change from previous. Chest x-ray reveals pulmonary vascular congestion with some blunting of the costophrenic angles noted. Pulmonary edema is improved from previous exam. Laboratory data reviewed, WBC 8.5, hemoglobin 10.7, platelets 284, INR 3.1, sodium 140, potassium 4.4, creatinine 1.04, magnesium 2.3, AST 72, ALTs 110, alkaline phosphatase 304, cardiac enzymes negative 1. Current cardiac medications include aspirin 81 mg daily, Plavix 75 mg daily, atorvastatin 80 mg daily, irbesartan 75 mg daily, Imdur 30 mg daily, Toprol 25 mg daily, Ranexa 500 mg twice a day, Aldactone 12.5 mg daily and Coumadin. At the time of my exam: CONSTITUTIONAL: Denies fever. Denies chills. EYES: Denies blurred vision. Denies vision changes. Denies eye pain. EARS, NOSE, MOUTH & THROAT: Denies headache. Denies sore throat. Denies ear pain. CARDIOVASCULAR: Denies chest pain. Denies shortness of breath. Denies orthopnea. Denies PND. Denies palpitations. RESPIRATORY: Denies cough. GASTROINTESTINAL: Denies abdominal pain. Denies diarrhea. Denies constipation. Denies nausea. Denies vomiting. MUSCULOSKELETAL: Denies myalgias. INTEGUMENTARY: Denies pruitis. Denies rash. NEUROLOGIC: Denies numbness. Denies tingling. Denies weakness. PSYCHIATRIC: Denies anxiety. Denies depression. ENDOCRINE: Denies fatigue. Denies weight change. Denies polydipsia. Denies polyurina. GENITOURINARY: Denies burning, hematuria or urgency with micturation. HEMATOLOGIC: Denies history of anemia. Denies bleeding. Blood pressure 157/76 heart rate 54 afebrile maintaining oxygen saturation on nasal cannula GENERAL: This is a 78-year-old female in no apparent distress at the time of my examination. HEENT: Head is atraumatic, normocephalic. Pupils are equal, round. Sclerae anicteric. Conjunctivae are clear. Mucous membranes of the mouth are moist. Neck is supple. There is no jugular venous distention. No carotid bruit is heard. LUNGS: Clear to auscultation no wheezes, rales or rhonchi. No chest wall tenderness is noted on palpation or with deep breathing. HEART: Regular rate and rhythm with systolic ejection murmur at the left sternal border, no rubs or gallops. S1 and S2 heard. ABDOMEN: Soft, nontender. Bowel sounds are heard. No organomegaly noted. EXTREMITIES: Trace bilateral lower extremity non-pitting edema and no calf tenderness noted. VASCULAR: Radial and dorsalis pedis pulses palpated, no evidence of clubbing. NEUROLOGIC: Patient is awake, alert and oriented x3. ASSESSMENT Chest pain, atypical. Recent stent placement to RCA maintained on dual anti-platelet therapy Underlying coronary artery disease s/p bypass grafting Paroxysmal atrial fibrillation on terminal clerk anti-coagulation Hypertension Dyslipidemia Elevated liver enzymes Valvular heart disease, severe MR. Further discussion to take place in the office regarding repair/surgery. PLAN Obtain stat troponin to rule out an acute event. Discontinue amiodarone due to elevated liver enzymes with no other etiology for the elevation. Increase protonix to BID. She has an appointment with Dr. Cuenca tomorrow. If troponin is negative she can be discharged home from a cardiac perspective. Thank you kindly for this consultation. Nurse Practitioner note has been reviewed, I agree with a documented findings and plan of care. Patient was seen and examined. 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 Past Anesthesia/Blood Transfusion Reactions: No Reported Reaction Additional Past Anesthesia/Blood Transfusion Reaction / Comment(s): CLAUSTROPHOBIA Date of Last Stent Placement:: 02/2019 Past Psychological History: No Psychological Hx Reported Smoking Status: Never smoker Past Alcohol Use History: None Reported Past Drug Use History: None Reported - Past Family History Mother Family Medical History: Myocardial Infarction ([place]) Additional Family Medical History / Comment(s): heart PROBLEMS Father Additional Family Medical History / Comment(s): HEART PROBLEMS Medications and Allergies Home Medications Medication Instructions Recorded Confirmed Type ALPRAZolam [Xanax] 0.25 mg PO TID PRN 03/25/14 02/14/19 History Spironolactone [Aldactone] 12.5 mg PO DAILY 07/05/17 02/14/19 History Clopidogrel [Plavix] 75 mg PO DAILY #30 tab 02/22/18 02/14/19 Rx Metoprolol Succinate [Toprol XL] 25 mg PO DAILY 02/02/19 02/14/19 History Ranolazine [Ranexa] 500 mg PO BID 02/02/19 02/14/19 History Warfarin Sodium 3 mg PO DAILY 02/02/19 02/14/19 History Aspirin 81 mg PO DAILY #30 chew 02/08/19 02/14/19 Rx Atorvastatin Calcium [Lipitor] 80 mg PO HS #30 tablet 02/08/19 02/14/19 Rx Irbesartan [Avapro] 75 mg PO DAILY #30 tab 02/08/19 02/14/19 Rx Isosorbide Mononitrate [Isosorbide 30 mg PO DAILY #30 tab.er.24h 02/08/19 02/14/19 Rx Mononitrate ER] Nitroglycerin Sl Tabs [Nitrostat] 0.4 mg SUBLINGUAL Q5M PRN #25 tab 02/08/19 02/14/19 Rx Pantoprazole Sodium [Protonix] 40 mg PO DAILY 02/14/19 02/14/19 History Allergies Allergy/AdvReac Type Severity Reaction Status Date / Time No Known Allergies Allergy Verified 02/14/19 20:09 Physical Exam Vitals: Vital Signs Temp Pulse Pulse Pulse Resp BP BP 02/15/19 08:00 97.7 F 54 L 16 157/76 02/15/19 07:21 02/15/19 04:00 97.6 F 56 L 18 158/68 02/15/19 00:00 97.3 F L 67 18 99/63 02/14/19 23:22 56 L 16 149/78 02/14/19 19:56 68 16 106/75 02/14/19 19:47 71 02/14/19 19:27 98.0 F 69 20 112/76 Pulse Ox 02/15/19 08:00 97 02/15/19 07:21 97 02/15/19 04:00 97 02/15/19 00:00 93 L 02/14/19 23:22 94 L 02/14/19 19:56 97 02/14/19 19:47 02/14/19 19:27 94 L Intake and Output 02/14/19 02/15/19 02/15/19 22:59 06:59 14:59 Other: Weight 63.503 kg Results 02/14/19 19:50 02/14/19 19:50 Cardiac Enzymes 02/14/19 02/14/19 Range/Units 19:50 19:50 AST 72 H (14-36) U/L Troponin I <0.012 (0.000-0.034) ng/mL Coagulation 02/14/19 Range/Units 19:50 PT 30.3 H (9.0-12.0) sec APTT 35.2 H (22.0-30.0) sec CBC 02/14/19 Range/Units 19:50 WBC 8.5 (3.8-10.6) k/uL RBC 3.92 (3.80-5.40) m/uL Hgb 10.7 L (11.4-16.0) gm/dL Hct 34.7 (34.0-46.0) % Plt Count 284 (150-450) k/uL Comprehensive Metabolic Panel 02/14/19 Range/Units 19:50 Sodium 140 (137-145) mmol/L Potassium 4.4 (3.5-5.1) mmol/L Chloride 104 (98-107) mmol/L Carbon Dioxide 24 (22-30) mmol/L BUN 22 H (7-17) mg/dL Creatinine 1.04 (0.52-1.04) mg/dL Glucose 135 H (74-99) mg/dL Calcium 9.0 (8.4-10.2) mg/dL AST 72 H (14-36) U/L ALT 110 H (9-52) U/L Alkaline Phosphatase 304 H (38-126) U/L Total Protein 6.9 (6.3-8.2) g/dL Albumin 3.9 (3.5-5.0) g/dL Current Medications Generic Name Dose Route Start Last Admin Trade Name Freq PRN Reason Stop Dose Admin Acetaminophen 650 mg 02/14/19 22:54 Tylenol Tab PO Q6HR PRN Mild Pain or Fever > 100.5 Alprazolam 0.25 mg 02/15/19 01:13 Xanax PO TID PRN Anxiety Amiodarone HCl 100 mg 02/15/19 09:00 Cordarone PO DAILY [facility] Aspirin 81 mg 02/15/19 09:00 Aspirin PO DAILY [facility] Atorvastatin Calcium 80 mg 02/15/19 21:00 Lipitor PO HS [facility] Clopidogrel Bisulfate 75 mg 02/15/19 09:00 Plavix PO DAILY [facility] Sodium Chloride 1,000 mls @ 50 mls/hr 02/14/19 23:00 02/14/19 23:43 Saline 0.9% IV Not Given .Q20H [facility] Isosorbide Mononitrate 30 mg 02/15/19 09:00 Imdur PO DAILY [facility] Losartan Potassium 25 mg 02/15/19 09:00 Cozaar PO DAILY [facility] Metoprolol Succinate 25 mg 02/15/19 09:00 Toprol Xl PO DAILY [facility] Morphine Sulfate 4 mg 02/14/19 22:54 Morphine Sulfate (Inj) IV Q4HR PRN Severe Pain Naloxone HCl 0.2 mg 02/14/19 22:54 Narcan IV Q2M PRN Opioid Reversal Ondansetron HCl 4 mg 02/14/19 22:54 Zofran IVP Q8HR PRN Nausea And Vomiting Pantoprazole Sodium 40 mg 02/15/19 09:00 Protonix PO DAILY [facility] Ranolazine 500 mg 02/15/19 09:00 Ranexa PO BID [facility] Spironolactone 12.5 mg 02/15/19 09:00 Aldactone PO DAILY [facility] Tramadol HCl 50 mg 02/14/19 22:54 Ultram PO Q6H PRN Moderate Pain Warfarin Sodium 3 mg 02/15/19 18:00 Coumadin PO DAILY@1800 [facility] Intake and Output 02/14/19 02/15/19 02/15/19 22:59 06:59 14:59 Other: Weight 63.503 kg 02/14/19 19:50 02/14/19 19:50
[2019-02-15 12:03] VITALS: BP 118/64; PULSE 57; TEMP 98
--- NOTE | 2019-02-15 14:32 | P.HPIM ---
History of Present Illness patient is a pleasant 78-year-old female with history of proximal proximal atrial fibrillation on anti-correlation came and coronary artery disease status post CABG came in with complaints of epigastric abdominal discomfort burning s ensation has been going on for a few days related to food no associated shortness of breath lightheadedness nonexertional pain in the epigastric area. Troponins and EKGs were done to rule out a concurrent syndromes. Patient was evaluated cardiology cleared for discharge.amiodarone was discontinued by cardiology because of elevated liver enzymes and patient will follow Dr. Rondon tomorrow. Patient was recently started on Protonix by primary care physician I'm adding sucralfate and patient will be discharged today patient abdominal pain, chest pain is secondary to peptic ulcer disease or gastritis. Review of Systems REVIEW OF SYSTEMS: CONSTITUTIONAL: No fever, no malaise, no fatigue. HEENT: No recent visual problems or hearing problems. Denied any sore throat. CARDIOVASCULAR: No orthopnea, PND, no palpitations, no syncope. PULMONARY: No shortness of breath, no cough, no hemoptysis. GASTROINTESTINAL: No diarrhea, no nausea, no vomiting, NEUROLOGICAL: No headaches, no weakness, no numbness. HEMATOLOGICAL: Denies any bleeding or petechiae. GENITOURINARY: Denies any burning micturition, frequency, or urgency. MUSCULOSKELETAL/RHEUMATOLOGICAL: Denies any joint pain, swelling, or any muscle pain. ENDOCRINE: Denies any polyuria or polydipsia. The rest of the 14-point review of systems is negative. 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 Past Anesthesia/Blood Transfusion Reactions: No Reported Reaction Additional Past Anesthesia/Blood Transfusion Reaction / Comment(s): CLAUSTROPHOBIA Date of Last Stent Placement:: 02/2019 Past Psychological History: No Psychological Hx Reported Smoking Status: Never smoker Past Alcohol Use History: None Reported Past Drug Use History: None Reported - Past Family History Mother Family Medical History: Myocardial Infarction ([place]) Additional Family Medical History / Comment(s): heart PROBLEMS Father Additional Family Medical History / Comment(s): HEART PROBLEMS Medications and Allergies Home Medications Medication Instructions Recorded Confirmed Type ALPRAZolam [Xanax] 0.25 mg PO TID PRN 03/25/14 02/14/19 History Spironolactone [Aldactone] 12.5 mg PO DAILY 07/05/17 02/14/19 History Clopidogrel [Plavix] 75 mg PO DAILY #30 tab 02/22/18 02/14/19 Rx Metoprolol Succinate [Toprol XL] 25 mg PO DAILY 02/02/19 02/14/19 History Ranolazine [Ranexa] 500 mg PO BID 02/02/19 02/14/19 History Warfarin Sodium 3 mg PO DAILY 02/02/19 02/14/19 History Aspirin 81 mg PO DAILY #30 chew 02/08/19 02/14/19 Rx Atorvastatin Calcium [Lipitor] 80 mg PO HS #30 tablet 02/08/19 02/14/19 Rx Irbesartan [Avapro] 75 mg PO DAILY #30 tab 02/08/19 02/14/19 Rx Isosorbide Mononitrate [Isosorbide 30 mg PO DAILY #30 tab.er.24h 02/08/19 02/14/19 Rx Mononitrate ER] Nitroglycerin Sl Tabs [Nitrostat] 0.4 mg SUBLINGUAL Q5M PRN #25 tab 02/08/19 02/14/19 Rx Pantoprazole Sodium [Protonix] 40 mg PO DAILY 02/14/19 02/14/19 History Sucralfate [Carafate] 1 gm PO ACHS #60 tablet 02/15/19 Rx Allergies Allergy/AdvReac Type Severity Reaction Status Date / Time No Known Allergies Allergy Verified 02/14/19 20:09 Physical Exam Vitals: Vital Signs Temp Pulse Pulse Pulse Resp BP BP 02/15/19 12:00 98.0 F 57 L 16 118/64 02/15/19 08:00 97.7 F 54 L 16 157/76 02/15/19 07:21 02/15/19 04:00 97.6 F 56 L 18 158/68 02/15/19 00:00 97.3 F L 67 18 99/63 02/14/19 23:22 56 L 16 149/78 02/14/19 19:56 68 16 106/75 02/14/19 19:47 71 02/14/19 19:27 98.0 F 69 20 112/76 Pulse Ox 02/15/19 12:00 90 L 02/15/19 08:00 97 02/15/19 07:21 97 02/15/19 04:00 97 02/15/19 00:00 93 L 02/14/19 23:22 94 L 02/14/19 19:56 97 02/14/19 19:47 02/14/19 19:27 94 L Intake and Output 02/14/19 02/15/19 02/15/19 22:59 06:59 14:59 Other: Weight 63.503 kg PHYSICAL EXAMINATION: GENERAL: The patient is alert and oriented x3, not in any acute distress. Well developed, well nourished. HEENT: Pupils are round and equally reacting to light. EOMI. No scleral icterus. No conjunctival pallor. Normocephalic, atraumatic. No pharyngeal erythema. No thyromegaly. CARDIOVASCULAR: S1 and S2 present. No murmurs, rubs, or gallops. PULMONARY: Chest is clear to auscultation, no wheezing or crackles. ABDOMEN: Soft, nontender, nondistended, normoactive bowel sounds. No palpable organomegaly. MUSCULOSKELETAL: No joint swelling or deformity. EXTREMITIES: No cyanosis, clubbing, or pedal edema. NEUROLOGICAL: Gross neurological examination did not reveal any focal deficits. SKIN: No rashes. Results CBC & Chem 7: 02/14/19 19:50 02/14/19 19:50 Labs: Abnormal Lab Results - Last 24 Hours (Table) 02/14/19 02/14/19 02/14/19 Range/Units 19:50 19:50 19:50 Hgb 10.7 L (11.4-16.0) gm/dL MCHC 30.8 L (31.0-37.0) g/dL RDW 16.8 H (11.5-15.5) % PT 30.3 H (9.0-12.0) sec INR 3.1 H (<1.2) APTT 35.2 H (22.0-30.0) sec BUN 22 H (7-17) mg/dL Glucose 135 H (74-99) mg/dL AST 72 H (14-36) U/L ALT 110 H (9-52) U/L Alkaline Phosphatase 304 H (38-126) U/L Thrombosis Risk Factor Assmnt - Choose All That Apply Any of the Below Risk Factors Present?: Yes Each Factor Represents 1 point: Heart failure (<1month) Other Risk Factors: Yes Each Risk Factor Represents 3 Points: Age 75 years or older Other congenital or acquired thrombophilia - If yes, enter type in comment: No Thrombosis Risk Factor Assessment Total Risk Factor Score: 4 Thrombosis Risk Factor Assessment Level: Moderate Risk Assessment and Plan Plan: -chest pain, epigastric burning sensation: Atypical chest pain rule out acute Syndromes and Epigastric Abdominal Pain Secondary to Gastritis or Peptic Ulcer Disease As Mentioned above for the Apparent As Mentioned in above -Coronary Artery Disease Status Post Bypass Grafting and Also Stent to RCA -Proximal Atrial Fibrillation continue with anticoagulation, Beta Beka Hold off on Amiodarone Because of Elevated Liver Enzymes As No Other Etiology Was Appreciated. Patient Will Follow with the Cardiology Tomorrow -hypertension -Hyperlipidemia -DVT in the past anticoagulation as mentioned above
--- NOTE | 2019-02-15 14:33 | P.DS ---
Providers Date of admission: 02/14/19 22:37 Attending physician: Shanika Yusuf Consults: 02/15/19 01:16 Consult Physician Routine Consulting Provider: [facility] Consult Reason/Comments: CHEST PAIN Do you want consulting provider notified?: Yes, Notify in am Primary care physician: Christopher Munoz [facility] Course: please refer to my HPI Patient Condition at Discharge: Stable Plan - Discharge Summary Discharge Rx Participant: No New Discharge Prescriptions: New Sucralfate [Carafate] 1 gm PO ACHS #60 tablet Discontinued Amiodarone [Cordarone] 100 mg PO DAILY #30 tab No Action ALPRAZolam [Xanax] 0.25 mg PO TID PRN PRN Reason: Anxiety Spironolactone [Aldactone] 12.5 mg PO DAILY Clopidogrel [Plavix] 75 mg PO DAILY #30 tab Warfarin Sodium 3 mg PO DAILY Metoprolol Succinate [Toprol XL] 25 mg PO DAILY Ranolazine [Ranexa] 500 mg PO BID Irbesartan [Avapro] 75 mg PO DAILY #30 tab Isosorbide Mononitrate [Isosorbide Mononitrate ER] 30 mg PO DAILY #30 tab.er.24h Atorvastatin Calcium [Lipitor] 80 mg PO HS #30 tablet Nitroglycerin Sl Tabs [Nitrostat] 0.4 mg SUBLINGUAL Q5M PRN #25 tab PRN Reason: Chest Pain Aspirin 81 mg PO DAILY #30 chew Pantoprazole Sodium [Protonix] 40 mg PO DAILY Discharge Medication List ALPRAZolam [Xanax] 0.25 mg PO TID PRN 03/25/14 [History] Spironolactone [Aldactone] 12.5 mg PO DAILY 07/05/17 [History] Clopidogrel [Plavix] 75 mg PO DAILY #30 tab 02/22/18 [Rx] Metoprolol Succinate [Toprol XL] 25 mg PO DAILY 02/02/19 [History] Ranolazine [Ranexa] 500 mg PO BID 02/02/19 [History] Warfarin Sodium 3 mg PO DAILY 02/02/19 [History] Aspirin 81 mg PO DAILY #30 chew 02/08/19 [Rx] Atorvastatin Calcium [Lipitor] 80 mg PO HS #30 tablet 02/08/19 [Rx] Irbesartan [Avapro] 75 mg PO DAILY #30 tab 02/08/19 [Rx] Isosorbide Mononitrate [Isosorbide Mononitrate ER] 30 mg PO DAILY #30 tab.er.24h 02/08/19 [Rx] Nitroglycerin Sl Tabs [Nitrostat] 0.4 mg SUBLINGUAL Q5M PRN #25 tab 02/08/19 [Rx] Pantoprazole Sodium [Protonix] 40 mg PO DAILY 02/14/19 [History] Sucralfate [Carafate] 1 gm PO ACHS #60 tablet 02/15/19 [Rx] Follow up Appointment(s)/Referral(s): Raleigh Cuenca MD [STAFF PHYSICIAN] - 1 Week Christopher Munoz MD [Primary Care Provider] - 3 Days Patient Instructions/Handouts: Chest Pain (GEN) Discharge Disposition: HOME SELF-CARE
[2019-02-15] MEDS ORDERED: WARFARIN 1 MG TAB PO SCH (18:00)
[2019-02-15] MEDS ORDERED: ATORVASTATIN 80 MG TAB PO SCH (21:00)
== END 2019-02-15 14:49 | disposition home or self-care (01) ==
LOC: SUPCPDRO 19:24 → EC 19:24 → 1SOBS 22:37
PROVIDERS: ADMIT Hospitalist; ATTEND Hospitalist
DX: R07.89 Other chest pain (principal); R10.13 Epigastric pain; K21.9 Gastro-esophageal reflux disease without esophagitis; J81.1 Chronic pulmonary edema; I08.1 Rheumatic disorders of both mitral and tricuspid valves; I44.7 Left bundle-branch block, unspecified; I44.0 Atrioventricular block, first degree; R74.8 Abnormal levels of other serum enzymes; I25.10 Atherosclerotic heart disease of native coronary artery without angina pectoris; I48.0 Paroxysmal atrial fibrillation; I11.0 Hypertensive heart disease with heart failure; I50.9 Heart failure, unspecified; I65.29 Occlusion and stenosis of unspecified carotid artery; F40.240 Claustrophobia; M54.30 Sciatica, unspecified side; E78.5 Hyperlipidemia, unspecified; N28.9 Disorder of kidney and ureter, unspecified; K44.9 Diaphragmatic hernia without obstruction or gangrene; Z79.82 Long term (current) use of aspirin; Z79.02 Long term (current) use of antithrombotics/antiplatelets; Z79.01 Long term (current) use of anticoagulants; Z79.899 Other long term (current) drug therapy; Z95.1 Presence of aortocoronary bypass graft; Z86.73 Personal history of transient ischemic attack (TIA), and cerebral infarction without residual deficits; Z86.718 Personal history of other venous thrombosis and embolism; Z85.828 Personal history of other malignant neoplasm of skin; Z90.710 Acquired absence of both cervix and uterus; Z90.49 Acquired absence of other specified parts of digestive tract; Z95.5 Presence of coronary angioplasty implant and graft; Z87.39 Personal history of other diseases of the musculoskeletal system and connective tissue; Z98.49 Cataract extraction status, unspecified eye; Z82.49 Family history of ischemic heart disease and other diseases of the circulatory system
CPT/HCPCS: 96374; 96375; 99285; 36415; 93005; 80053; 83735; 84484 ×2; 85025; 85610; 85730; 71046; G0378 ×2; J2270; J2405

== ENCOUNTER → 2019-04-17 | Outpatient (CLI) | payer MEDICARE, BC ==
--- NOTE | 2019-04-17 11:53 | US ---
EXAMINATION TYPE: US carotid duplex BILAT DATE OF EXAM: 04/17/2019 COMPARISON: NONE CLINICAL HISTORY: Z01.818 PRE OP. Preop, HTN controlled with meds EXAM MEASUREMENTS: RIGHT: Peak Systolic Velocity (PSV) cm/sec ----- Right CCA: 59.0 ----- Right ICA: 213.5 ----- Right ECA: 98.5 ICA/CCA ratio: 3.6 RIGHT: End Diastole cm/sec ----- Right CCA: 18.0 ----- Right ICA: 76.9 ----- Right ECA: 23.7 LEFT: Peak Systolic Velocity (PSV) cm/sec ----- Left CCA: 69.4 ----- Left ICA: 122.6 ----- Left ECA: 72.4 ICA/CCA ratio: 1.8 LEFT: End Diastole cm/sec ----- Left CCA: 25.8 ----- Left ICA: 33.9 ----- Left ECA: 33.9 VERTEBRALS (direction of flow): Right Vertebral: Antegrade Left Vertebral: Antegrade Rhythm: Arrhythmia Bilateral wall thickening. Plaque seen in bilateral bulbs extending into proximal ICA. Right ICA el evated velocity and right significant stenosis. IMPRESSION: 1. Stenosis of 50-69% within the right internal carotid artery approaching criteria for greater than 70% stenosis. 2. No hemodynamically significant stenosis seen on the left although values to approach criteria for 50-69% stenosis. 3. Cardiac arrhythmia. Correlate with EKG. Criteria for Assigning % of Stenosis / Diameter reduction (Estimation based on the indirect measurements of the internal carotid artery velocities (ICA PSV). 1. Normal (no stenosis)=ICA PSV < 125 cm/s: ratio < 2.0: ICA EDV<40 cm/s. 2. Less than 50% stenosis=ICA PSV < 125 cm/s: ratio < 2.0: ICA EDV<40 cm/s. 3. 50 to 69% stenosis=ICA PSV of 125 to 230 cm/s: ration 2.0 ? 4.0: ICA EDV 40-100 cm/s. 4. Greater than 70% stenosis to near occlusion= ICA PSV > 230 cm/s: ratio > 4.0: ICA EDV > 100 cm/s. 5. Near occlusion= ICA PSV velocities may be low or undetectable: variable ratio and ICA EDV. 6. Total occlusion=unable to detect flow.
== END | disposition home or self-care (01) ==
LOC: RADUSWWP 10:46
DX: I65.23 Occlusion and stenosis of bilateral carotid arteries (principal); I49.9 Cardiac arrhythmia, unspecified
CPT/HCPCS: 93880

== ENCOUNTER → 2019-04-17 | Outpatient (CLI) | payer MEDICARE, BC ==
--- NOTE | 2019-04-17 11:57 | US ---
EXAMINATION TYPE: US kidneys/renal and bladder DATE OF EXAM: 04/17/2019 COMPARISON: NONE CLINICAL HISTORY: N18.3 CKD. No pain EXAM MEASUREMENTS: Right Kidney: 9.1 x 3.8 x 3.4 cm Left Kidney: 8.5 x 3.9 x 4.1 cm Limited/suboptimal visualization due to overlying bowel gas, kidneys scanned between ribs Right Kidney: limited visualization, no prominent masses or lesions visualized Left Kidney: limited visualization, no prominent masses or lesions visualized Bladder: moderately distended, anechoic Bilateral Jets not seen There is no evidence for hydronephrosis at this point in time. No nephrolithiasis is seen. No yahaira s are identified. The urinary bladder is anechoic. Bilateral ureteral jets are not seen. IMPRESSION: Slightly suboptimal evaluation of the kidneys due to overlying bowel gas however no discr ete solid or cystic masses are seen and no hydronephrosis or nephrolithiasis.
== END | disposition home or self-care (01) ==
LOC: RADUSWWP 10:58
PROVIDERS: ATTEND Nurse Practitioner Family
DX: N18.3 Chronic kidney disease, stage 3 (moderate) (principal)
CPT/HCPCS: 76770